=== PATIENT | female | born 1955 | race Caucasian/White ===

== ENCOUNTER 2016-10-29 07:52 | Inpatient (IN) | payer MEDICARE, OTHER ==
[2016-10-29 08:32] LABS: HEMATOCRIT 32.2 % (36.0-47.0); HEMOGLOBIN 10.4 g/dL (12.0-15.5); MEAN CORPUSCULAR HEMOGLOBIN 29.2 pg (27.0-33.4); MEAN CORPUSCULAR HGB CONC 32.1 g/dL (32.0-36.0); MEAN CORPUSCULAR VOLUME 91 fl (80-97); RED BLOOD COUNT 3.54 10^6/uL (3.72-5.28); RED CELL DISTRIBUTION WIDTH 14.7 % (11.5-14.0); WHITE BLOOD COUNT 15.9 10^3/uL (4.0-10.5)
[2016-10-29] MEDS ORDERED: LEVOFLOXACIN 500 MG/D5W RTU 100 ML IV ONE (08:35)
[2016-10-29 08:38] LABS: VENOUS BLOOD BASE EXCESS 5.6 mmol/L; VENOUS BLOOD HCO3 33.8 mmol/L (20-32); VENOUS BLOOD PH 7.3 (7.30-7.42)
[2016-10-29 08:55] LABS: BASOPHILS % (MANUAL) 0 % (0-2); EOSINOPHILS % (MANUAL) 1 % (0-6); LYMPHOCYTES % (MANUAL) 8 % (13-45); TOTAL CELLS COUNTED 100
[2016-10-29 08:56] LABS: RBC MORPHOLOGY COMMENT NORMO-CYTIC/CHROMIC
[2016-10-29 08:57] LABS: ALANINE AMINOTRANSFERASE 31 U/L (9-52); ALBUMIN 3.6 g/dL (3.5-5.0); ALKALINE PHOSPHATASE 69 U/L (38-126); ANION GAP 8 (5-19); ASPARTATE AMINO TRANSFERASE 56 U/L (14-36); BILIRUBIN,DIRECT 0.3 mg/dL (0.0-0.4); BILIRUBIN,TOTAL 0.5 mg/dL (0.2-1.3); BLOOD UREA NITROGEN 11 mg/dL (7-20); CALCIUM 9.3 mg/dL (8.4-10.2); CARBON DIOXIDE 32 mmol/L (22-30); CHLORIDE 100 mmol/L (98-107); CREATININE RESULT 0.67 mg/dL (0.52-1.25); GLUCOSE 107 mg/dL (75-110); POTASSIUM 4.3 mmol/L (3.6-5.0); SODIUM 139.9 mmol/L (137-145); TOTAL PROTEIN 6.2 g/dL (6.3-8.2)
--- NOTE | 2016-10-29 09:13 | RADIOLOGY REPORT (SQ) ---
EXAM DESCRIPTION: CHEST SINGLE VIEW/ portable COMPLETED DATE/TIME: 10/29/2016 9:00 am REASON FOR STUDY: SOB on Bipap COMPARISON: None. NUMBER OF VIEWS: One view. TECHNIQUE: Single frontal radiographic view of the chest acquired. LIMITATIONS: None. FINDINGS: LUNGS AND PLEURA: Decreased volume of the right lung with patchy change at the right lung base. Left lung over expanded but clear. MEDIASTINUM AND HILAR STRUCTURES: Some shift to the right. No obvious widening. HEART AND VASCULAR STRUCTURES: Heart normal in size. Normal vasculature. BONES: Scoliosis thoracic spine. HARDWARE: Port on the left. OTHER: No other significant finding. IMPRESSION: Some loss of volume of the right lung, with midline shift, and patchy change right lung base. TECHNICAL DOCUMENTATION: JOB ID: [id number] [employer]- All Rights Reserved
[2016-10-29] MEDS ORDERED: CEFEPIME 1 GM/D5W RTU 50 ML IV ONE (10:38)
[2016-10-29] MEDS ORDERED: METHYLPREDNISOLONE INJ 125 MG/2 ML SDV IV ONE (10:44)
[2016-10-29] MEDS ORDERED: IPRATROPIUM/ALBUTEROL 0.5-2.5 MG/3 ML AMPUL NEB ONE (10:44)
--- NOTE | 2016-10-29 10:44 | ER Document Report ---
ED General - General Chief Complaint: Respiratory Distress Stated Complaint: DIFFICULTY BREATHING Time Seen by Provider: 10/29/16 08:32 - HPI Patient complains to provider of: Shortness of breath productive cough Notes: Patient is coming in with history of acute on chronic respiratory failure patient wears BiPAP at home. Patient was found to be hypoxic on her home settings of BiPAP and had to be increased to 20/5 her oxygenation to see her in the ER. Patient states productive cough no pain no nausea vomiting no other new symptoms. No recent antibiotics no recent travel. Patient states recent hospitalizations back in July. - Related Data Allergies/Adverse Reactions: No Known Allergies Allergy (Unverified 10/29/16 08:28) Past Medical History - Social History Smoking Status: Unknown if Ever Smoked Chew tobacco use (# tins/day): No Frequency of alcohol use: None Drug Abuse: None Family History: Reviewed & Not Pertinent - Past Medical History Cardiac Medical History: Reports: Hx Congestive Heart Failure, Hx Hypercholesterolemia Pulmonary Medical History: Reports: Hx COPD GI Medical History: Reports: Hx Hiatal Hernia Psychiatric Medical History: Reports: Hx Depression Review of Systems - Review of Systems Constitutional: No symptoms reported EENT: No symptoms reported Cardiovascular: Dyspnea Respiratory: Short of breath Gastrointestinal: No symptoms reported Genitourinary: No symptoms reported Female Genitourinary: No symptoms reported Musculoskeletal: No symptoms reported Skin: No symptoms reported Hematologic/Lymphatic: No symptoms reported Neurological/Psychological: No symptoms reported -: Yes All other systems reviewed and negative Physical Exam - Vital signs Vitals: Temp Pulse Resp BP Pulse Ox 97.9 F 88 38 H 160/55 H 100 10/29/16 08:03 10/29/16 08:03 10/29/16 08:03 10/29/16 08:03 10/29/16 08:03 Interpretation: Tachypneic - General General appearance: Appears well, Alert - HEENT Head: Normocephalic, Atraumatic Eyes: Normal Pupils: PERRL - Respiratory Respiratory status: Respiratory distress - Requiring BiPAP Chest status: Nontender Breath sounds: Decreased air movement, Wheezing Chest palpation: Normal - Cardiovascular Rhythm: Regular Heart sounds: Normal auscultation Murmur: No - Abdominal Inspection: Normal Distension: No distension Bowel sounds: Normal Tenderness: Nontender Organomegaly: No organomegaly - Back Back: Normal, Nontender - Extremities General upper extremity: Normal inspection, Nontender, Normal color, Normal ROM , Normal temperature General lower extremity: Normal inspection, Nontender, Normal color, Normal ROM , Normal temperature, Normal weight bearing. No: Natasha's sign - Neurological Neuro grossly intact: Yes Cognition: Normal Orientation: AAOx4 [place] Coma Scale Eye Opening: Spontaneous [place] Coma Scale Verbal: Oriented [place] Coma Scale Motor: Obeys Commands G[place]var[place] Coma Scale Total: 15 Speech: Normal Motor strength normal: LUE, RUE, LLE, RLE Sensory: Normal - Psychological Associated symptoms: Normal affect, Normal mood - Skin Skin Temperature: Warm Skin Moisture: Dry Skin Color: Normal Course - Re-evaluation Re-evalutation: 10/29/16 14:14 Patient examination is consistent with COPD exacerbation with acute on chronic respiratory failure with hypercapnia and possible developing pneumonia. Patient remained stable on BiPAP. Cefepime and Levaquin were given. Patient's case was discussed with PCP agrees to admit to IMCU. Patient otherwise remained stable - Vital Signs Vital signs: Temp Pulse Resp BP Pulse Ox 97.9 F 88 16 146/52 H 98 10/29/16 08:03 10/29/16 08:03 10/29/16 13:01 10/29/16 13:01 10/29/16 13:01 - Laboratory Result Diagrams: 10/29/16 08:05 10/29/16 08:05 Laboratory results interpreted by me: 10/29/16 10/29/16 10/29/16 08:05 08:05 08:05 WBC 15.9 H RBC 3.54 L Hgb 10.4 L Hct 32.2 L RDW 14.7 H Seg Neuts % (Manual) 84 H Lymphocytes % (Manual) 8 L Abs Neuts (Manual) 13.4 H VBG pCO2 70.0 H* VBG HCO3 33.8 H Carbon Dioxide 32 H Lactic Acid AST 56 H Total Protein 6.2 L 10/29/16 08:05 WBC RBC Hgb Hct RDW Seg Neuts % (Manual) Lymphocytes % (Manual) Abs Neuts (Manual) VBG pCO2 VBG HCO3 Carbon Dioxide Lactic Acid 0.6 L AST Total Protein Critical Care Note - Critical Care Note Total time excluding time spent on procedures (mins): 35 Comments: multiple evaluation patient on BiPAP. Discharge - Discharge Clinical Impression: Acute and chronic respiratory failure with hypercapnia, Hypoxia Pneumonia Qualifiers: Pneumonia type: due to unspecified organism Laterality: unspecified laterality Lung location: unspecified part of lung Qualified Code(s): J18.9 - Pneumonia, unspecified organism COPD (chronic obstructive pulmonary disease) Qualifiers: COPD type: unspecified COPD Qualified Code(s): J44.9 - Chronic obstructive pulmonary disease, unspecified Disposition: ADMITTED INPATIENT Admitting Provider: Pavel Unit Admitted: [facility]
[2016-10-29 13:10] LABS: APPEARANCE,URINE CLEAR; BILIRUBIN,URINE NEGATIVE (NEGATIVE); GLUCOSE, URINE NEGATIVE (NEGATIVE); KETONES,URINE 20 mg/dL (NEGATIVE); LEUKOCYTE ESTERASE,URINE NEGATIVE (NEGATIVE); NITRITE,URINE NEGATIVE (NEGATIVE); PROTEIN,URINE NEGATIVE (NEGATIVE); URINE SPECIFIC GRAVITY 1.011; UROBILINOGEN,URINE NEGATIVE mg/dL (<2.0)
--- NOTE | 2016-10-29 14:27 | EKG REPORT ---
SEVERITY:- ABNORMAL ECG - SINUS RHYTHM LOW VOLTAGE WITH RIGHT AXIS DEVIATION BORDERLINE R WAVE PROGRESSION, ANTERIOR LEADS BORDERLINE T ABNORMALITIES, ANT-LAT LEADS : Confirmed by: Effie Thomas 29-Oct-2016 14:27:27
[2016-10-29 18:08] LABS: ARTERIAL BLOOD BASE EXCESS 6.6 mmol/L; ARTERIAL BLOOD O2 SATURATION 96.2 % (94-98)
[2016-10-29] MEDS ORDERED: LEVOFLOXACIN 750 MG/D5W RTU 750 MG/150 ML RTUPB IV ONE (19:30)
[2016-10-29 19:45] LABS: PROTHROMBIN TIME 13.5 SEC (11.4-15.4)
[2016-10-29 19:46] LABS: PARTIAL THROMBOPLASTIN TIME 26.9 SEC (23.5-35.8)
[2016-10-29] MEDS: IPRATROPIUM/ALBUTEROL 0.5-2.5 MG/3 ML AMPUL NEB SCH ×3 (19:49→23:43)
[2016-10-29 19:53] LABS: LIPASE 75.8 U/L (23-300); MAGNESIUM 1.8 mg/dL (1.6-2.3); PHOSPHORUS 2.4 mg/dL (2.5-4.5)
[2016-10-29 20:07] LABS: CREATINE KINASE MB 9.73 ng/mL (<4.55)
[2016-10-29 20:10] LABS: TROPONIN I < 0.012 ng/mL
[2016-10-29 20:25] LABS: THYROID STIMULATING HORMONE 0.3 uIU/mL (0.47-4.68)
[2016-10-29 20:27] LABS: APPEARANCE,URINE CLEAR; BILIRUBIN,URINE NEGATIVE (NEGATIVE); GLUCOSE, URINE NEGATIVE (NEGATIVE); KETONES,URINE 80 mg/dL (NEGATIVE); LEUKOCYTE ESTERASE,URINE NEGATIVE (NEGATIVE); NITRITE,URINE NEGATIVE (NEGATIVE); PROTEIN,URINE NEGATIVE (NEGATIVE); URINE SPECIFIC GRAVITY 1.016; UROBILINOGEN,URINE NEGATIVE mg/dL (<2.0)
[2016-10-29] MEDS ORDERED: ASPIRIN 81 MG TABLET, ENT COATED PO ONE (20:30)
[2016-10-29] MEDS ORDERED: ROFLUMILAST 500 MCG TABLET PO ONE (20:30)
[2016-10-29 20:36] LABS: URINE BARBITURATES SCREEN NEGATIVE; URINE METHADONE SCREEN NEGATIVE; URINE PHENCYCLIDINE SCREEN NEGATIVE
[2016-10-29 20:41] LABS: URINE OPIATES LOW UNCONFIRMED POSITIVE
[2016-10-29] MEDS: CEFEPIME HCL 2 GM in DEXTROSE 5%-WATER 50 ML IV SCH (21:49)
[2016-10-29] MEDS ORDERED: CEFEPIME 2 GM/D5W RTU 2 GM/50 ML RTUPB IV SCH (22:00)
[2016-10-30] MEDS: IPRATROPIUM/ALBUTEROL 0.5-2.5 MG/3 ML AMPUL NEB SCH ×9 (01:36→18:02)
[2016-10-30 01:40] LABS: CREATINE KINASE MB 5.86 ng/mL (<4.55)
[2016-10-30 01:43] LABS: TROPONIN I < 0.012 ng/mL
[2016-10-30 07:16] LABS: HEMATOCRIT 29.9 % (36.0-47.0); HEMOGLOBIN 9.5 g/dL (12.0-15.5); HGB HCT DIFFERENCE -1.4; MEAN CORPUSCULAR HEMOGLOBIN 28.6 pg (27.0-33.4); MEAN CORPUSCULAR HGB CONC 31.9 g/dL (32.0-36.0); MEAN CORPUSCULAR VOLUME 90 fl (80-97); RED BLOOD COUNT 3.34 10^6/uL (3.72-5.28); RED CELL DISTRIBUTION WIDTH 14.8 % (11.5-14.0); WHITE BLOOD COUNT 24.2 10^3/uL (4.0-10.5)
[2016-10-30 07:45] LABS: CREATINE KINASE MB 3.83 ng/mL (<4.55)
[2016-10-30 07:51] LABS: TROPONIN I < 0.012 ng/mL
[2016-10-30 07:53] LABS: BASOPHILS % (MANUAL) 0 % (0-2); EOSINOPHILS % (MANUAL) 0 % (0-6); LYMPHOCYTES % (MANUAL) 2 % (13-45); TOTAL CELLS COUNTED 100
[2016-10-30 07:56] LABS: ANISOCYTOSIS SLIGHT; HYPOCHROMASIA SLIGHT; TOXIC GRANULATION SLIGHT
[2016-10-30 08:00] LABS: ALANINE AMINOTRANSFERASE 30 U/L (9-52); ALBUMIN 3.7 g/dL (3.5-5.0); ALKALINE PHOSPHATASE 70 U/L (38-126); ANION GAP 12 (5-19); ASPARTATE AMINO TRANSFERASE 52 U/L (14-36); BILIRUBIN,DIRECT 0.4 mg/dL (0.0-0.4); BILIRUBIN,TOTAL 0.5 mg/dL (0.2-1.3); BLOOD UREA NITROGEN 15 mg/dL (7-20); CALCIUM 9.8 mg/dL (8.4-10.2); CARBON DIOXIDE 30 mmol/L (22-30); CHLORIDE 99 mmol/L (98-107); Direct HDL 57 mg/dL (>40); GLUCOSE 109 mg/dL (75-110); POTASSIUM 3.6 mmol/L (3.6-5.0); SODIUM 140.9 mmol/L (137-145); TOTAL PROTEIN 6.7 g/dL (6.3-8.2); TRIGLYCERIDES 60 mg/dL (<150)
[2016-10-30 08:15] LABS: DIRECT LDL 78 mg/dL (<100)
[2016-10-30] MEDS: ENOXAPARIN SODIUM INJ 40 MG/0.4 ML DISP.SYRIN SUBCUT SCH (08:35)
[2016-10-30] MEDS: ASPIRIN 81 MG TABLET, ENT COATED PO SCH (09:51)
[2016-10-30] MEDS: LEVOFLOXACIN 750 MG/D5W RTU 750 MG/150 ML RTUPB IV SCH (09:51)
[2016-10-30] MEDS: ROFLUMILAST 500 MCG TABLET PO SCH (09:51)
[2016-10-30] MEDS: CEFEPIME HCL 2 GM in DEXTROSE 5%-WATER 50 ML IV SCH ×2 (11:52→21:41)
--- NOTE | 2016-10-30 19:52 | PDOC H&P ---
History of Present Illness Admission Date/PCP: 10/29/16 18:48 BOONE GOODWIN MD History of Present Illness: DENNIS DEGROOT is a 61 year old female, with chronic respiratory failure on positive pressure ventilation, BiPAP at home she came to the emergency room because of shortness of breath associated with hypoxemia. She was seen and evaluated in the emergency room, chest x-ray was done, it suggested right lower lobe pneumonia associated with leukocytosis with a left shift. Patient have a history of severe chronic obstructive lung disease, a very long history of tobacco abuse now she smokes electronic cigarettes, history of lung cancer, history of poor health, chronic pain syndrome on multiple opioid therapy. When I saw patient on the floor she was lethargic hardly able to answer questions. 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 Past Medical History Cardiac Medical History: Reports: Hyperlipidema Pulmonary Medical History: Reports: Chronic Obstructive Pulmonary Disease (COPD) Neurological Medical History: Reports: Ischemic CVA Malignancy Medical History: Reports: Lung Cancer GI Medical History: Reports: Hiatal Hernia Psychiatric Medical History: Reports: Depression Past Surgical History Past Surgical History: Reports: Cardiac Catheterization, Other - lobectomy Social History Smoking Status: Current Every Day Smoker Number of Years Smokin Last Time Smoked: 10/28/16 Frequency of Alcohol Use: None Hx Recreational Drug Use: No Drugs: None Hx Prescription Drug Abuse: No Family History Family History: Reviewed & Not Pertinent Parental Family History Reviewed: Yes Children Family History Reviewed: Yes Sibling(s) Family History Reviewed.: Yes Medication/Allergy Home Medications: Albuterol Sulfate [Proair HFA] 1 puff IH DAILY 10/29/16 Alendronate Sodium [Fosamax 70 mg Tablet] 70 mg PO SCHMIDT@1000 10/29/16 Aspirin [Adult Low Dose Aspirin EC] 81 mg PO DAILY 10/29/16 Atorvastatin Calcium [Lipitor 40 mg Tablet] 40 mg PO QPM 10/29/16 Azithromycin [Zithromax 250 mg Tablet] 250 mg PO BID 10/29/16 Bupropion HCl [Wellbutrin Xl 150 mg 24hr Tablet] 150 mg PO QPM 10/29/16 Clopidogrel Bisulfate [Plavix 75 mg Tablet] 75 mg PO QPM 10/29/16 Fluticasone/Salmeterol [Advair 250-50 Diskus 14 Dose/Diskus] 2 puff IH DAILY 10/10 Iron Polysaccharide Complex [Ferrex 150] 150 mg PO DAILY 10/29/16 Lorazepam [Ativan 0.5 mg Tablet] 0.5 mg PO TID 10/29/16 Multivits-Min/Iron/FA/Lutein [Centrum Silver Women Tablet] 1 tab PO DAILY Oxycodone HCl [Oxycodone HCl ER] 40 mg PO Q8 10/29/16 Oxycodone HCl/Acetaminophen [Oxycodone-Acetaminophen 10-325] 1 tab PO Q6HP PRN 10/29/16 Prochlorperazine Maleate [Compazine 10 mg Tablet] 10 mg PO TID 10/29/16 Quetiapine Fumarate [Seroquel Xr] 200 mg PO QPM 10/29/16 Roflumilast [Daliresp 500 mcg Tablet] 500 mcg PO DAILY 10/29/16 Tiotropium [place] [Spiriva Handihaler 18 mcg/dose (30 Dose)] 18 mcg IH DAILY Ubidecarenone [Co Q-10] 200 mg PO DAILY 10/29/16 Valsartan [Diovan 80 mg Tablet] 80 mg PO DAILY 10/29/16 Zolpidem Tartrate [Edluar SL 10 mg Tablet] 10 mg SL QHS 10/29/16 Allergies/Adverse Reactions: No Known Allergies Allergy (Unverified 10/29/16 08:28) Review of Systems Constitutional: PRESENT: fever(s) Cardiovascular: PRESENT: dyspnea on exertion Respiratory: PRESENT: cough, dyspnea Gastrointestinal: ABSENT: as per HPI, abdominal pain, bloating, coffee ground emesis, constipation, diarrhea, dysphagia, heartburn, hematemesis, hematochezia , melena, nausea, vomiting, other Genitourinary: ABSENT: dysuria, hematuria Musculoskeletal: ABSENT: joint swelling Integumentary: ABSENT: rash, wounds Neurological: ABSENT: abnormal gait, abnormal speech, confusion, dizziness, focal weakness, syncope Psychiatric: ABSENT: anxiety, depression, homidical ideation, suicidal ideation Endocrine: ABSENT: cold intolerance, heat intolerance, menstrual abnormalities, polydipsia, polyuria Hematologic/Lymphatic: ABSENT: easy bleeding, easy bruising, lymphadenopathy Physical Exam Vital Signs: Temp Pulse Resp BP Pulse Ox 99.7 F 130 H 30 H 133/70 H 100 10/30/16 16:40 10/30/16 18:02 10/30/16 18:02 10/30/16 16:40 10/30/16 16:40 Intake & Output 10/29/16 10/30/16 10/31/16 06:59 06:59 06:59 Intake Total 426 235 Output Total 400 400 Balance 26 -165 Weight 63.6 kg General appearance: PRESENT: severe distress Head exam: PRESENT: atraumatic Eye exam: PRESENT: PERRLA Ear exam: PRESENT: normal external ear exam Neck exam: PRESENT: full ROM Respiratory exam: PRESENT: rhonchi Cardiovascular exam: PRESENT: RRR, +S1, +S2 Vascular exam: PRESENT: normal capillary refill GI/Abdominal exam: PRESENT: normal bowel sounds, soft Rectal exam: PRESENT: deferred Neurological exam: PRESENT: alert, CN II-XII grossly intact Psychiatric exam: PRESENT: appropriate affect, normal mood. ABSENT: homicidal ideation, suicidal ideation Skin exam: PRESENT: dry, intact, warm Results Laboratory Results: 10/30/16 07:00 10/30/16 07:00 10/29/16 10/29/16 10/29/16 19:25 19:25 19:25 WBC RBC Hgb Hct MCV MCH MCHC RDW Plt Count Seg Neutrophils % Lymphocytes % Monocytes % Eosinophils % Basophils % Absolute Neutrophils Absolute Lymphocytes Absolute Monocytes Absolute Eosinophils Absolute Basophils Sodium Potassium Chloride Carbon Dioxide Anion Gap BUN Creatinine Est GFR ( Amer) Est GFR (Non-Af Amer) Glucose Calcium Phosphorus 2.4 L Magnesium 1.8 Total Bilirubin AST ALT Alkaline Phosphatase Ammonia 11.0 Total Protein Albumin Triglycerides Cholesterol LDL Cholesterol Direct VLDL Cholesterol HDL Cholesterol Amylase 47 Lipase 75.8 TSH 0.30 L Free T4 1.25 Urine Color Urine Appearance Urine pH Ur Specific [place] Urine Protein Urine Glucose (UA) Urine Ketones Urine Blood Urine Nitrite Ur Leukocyte Esterase Urine WBC (Auto) Urine RBC (Auto) 10/29/16 10/30/16 10/30/16 20:10 07:00 07:00 WBC 24.2 H RBC 3.34 L Hgb 9.5 L Hct 29.9 L MCV 90 MCH 28.6 MCHC 31.9 L RDW 14.8 H Plt Count 269 Seg Neutrophils % Not Reportable Lymphocytes % Not Reportable Monocytes % Not Reportable Eosinophils % Not Reportable Basophils % Not Reportable Absolute Neutrophils Not Reportable Absolute Lymphocytes Not Reportable Absolute Monocytes Not Reportable Absolute Eosinophils Not Reportable Absolute Basophils Not Reportable Sodium 140.9 Potassium 3.6 Chloride 99 Carbon Dioxide 30 Anion Gap 12 BUN 15 Creatinine 0.70 Est GFR ( Amer) > 60 Est GFR (Non-Af Amer) > 60 Glucose 109 Calcium 9.8 Phosphorus Magnesium Total Bilirubin 0.5 AST 52 H ALT 30 Alkaline Phosphatase 70 Ammonia Total Protein 6.7 Albumin 3.7 Triglycerides 60 Cholesterol 166.40 LDL Cholesterol Direct 78 VLDL Cholesterol 12.0 HDL Cholesterol 57 Amylase Lipase TSH Free T4 Urine Color YELLOW Urine Appearance CLEAR Urine pH 5.0 Ur Specific [place] 1.016 Urine Protein NEGATIVE Urine Glucose (UA) NEGATIVE Urine Ketones 80 H Urine Blood NEGATIVE Urine Nitrite NEGATIVE Ur Leukocyte Esterase NEGATIVE Urine WBC (Auto) 1 Urine RBC (Auto) 4 10/29/16 10/30/16 10/30/16 19:25 01:04 07:00 CK-MB (CK-2) 9.73 H 5.86 H 3.83 Troponin I < 0.012 < 0.012 < 0.012 Impressions: Chest X-Ray 10/29/16 08:12 IMPRESSION: Some loss of volume of the right lung, with midline shift, and patchy change right lung base. Assessment & Plan - Diagnosis (1) Acute hypoxemic respiratory failure Is this a current diagnosis for this admission?: Yes (2) Pneumonia Qualifiers: Pneumonia type: due to unspecified organism Laterality: right Lung location: lower lobe of lung Qualified Code(s): J18.1 - Lobar pneumonia, unspecified organism Is this a current diagnosis for this admission?: Yes (3) COPD (chronic obstructive pulmonary disease) Is this a current diagnosis for this admission?: Yes (4) Acute and chronic respiratory failure with hypercapnia Is this a current diagnosis for this admission?: Yes (5) COPD (chronic obstructive pulmonary disease) Qualifiers: COPD type: unspecified COPD Qualified Code(s): J44.9 - Chronic obstructive pulmonary disease, unspecified Is this a current diagnosis for this admission?: Yes (7) Pneumonia Qualifiers: Pneumonia type: due to unspecified organism Laterality: unspecified laterality Lung location: unspecified part of lung Qualified Code(s): J18.9 - Pneumonia, unspecified organism Is this a current diagnosis for this admission?: Yes - Plan Summary Plan Summary: Continue the positive pressure ventilation , BiPAP bronchodilators with DuoNeb every 2 hours, IV antibiotic, cefepime and Levaquin
[2016-10-30] MEDS ORDERED: IPRATROPIUM/ALBUTEROL 0.5-2.5 MG/3 ML AMPUL NEB PRN (19:56)
--- NOTE | 2016-10-30 19:59 | PDOC PROGRESS REPORT ---
Subjective Progress Note for:: 10/30/16 Subjective:: Patient was seen by the bedside, she is more awake and alert,Compared to yesterday Physical Exam Vital Signs: Temp Pulse Resp BP Pulse Ox 99.7 F 123 H 30 H 133/70 H 100 10/30/16 16:40 10/30/16 18:55 10/30/16 18:02 10/30/16 16:40 10/30/16 16:40 Intake & Output 10/29/16 10/30/16 10/31/16 06:59 06:59 06:59 Intake Total 426 235 Output Total 400 400 Balance 26 -165 Weight 63.6 kg General appearance: PRESENT: no acute distress Eye exam: PRESENT: PERRLA Respiratory exam: PRESENT: clear to auscultation melanie Cardiovascular exam: PRESENT: +S1, +S2 GI/Abdominal exam: PRESENT: soft Neurological exam: PRESENT: alert Results Laboratory Results: 10/30/16 07:00 10/30/16 07:00 10/29/16 10/29/16 10/30/16 19:25 20:10 07:00 WBC 24.2 H RBC 3.34 L Hgb 9.5 L Hct 29.9 L MCV 90 MCH 28.6 MCHC 31.9 L RDW 14.8 H Plt Count 269 Seg Neutrophils % Not Reportable Lymphocytes % Not Reportable Monocytes % Not Reportable Eosinophils % Not Reportable Basophils % Not Reportable Absolute Neutrophils Not Reportable Absolute Lymphocytes Not Reportable Absolute Monocytes Not Reportable Absolute Eosinophils Not Reportable Absolute Basophils Not Reportable Sodium Potassium Chloride Carbon Dioxide Anion Gap BUN Creatinine Est GFR ( Amer) Est GFR (Non-Af Amer) Glucose Calcium Total Bilirubin AST ALT Alkaline Phosphatase Total Protein Albumin Triglycerides Cholesterol LDL Cholesterol Direct VLDL Cholesterol HDL Cholesterol TSH 0.30 L Free T4 1.25 Urine Color YELLOW Urine Appearance CLEAR Urine pH 5.0 Ur Specific [place] 1.016 Urine Protein NEGATIVE Urine Glucose (UA) NEGATIVE Urine Ketones 80 H Urine Blood NEGATIVE Urine Nitrite NEGATIVE Ur Leukocyte Esterase NEGATIVE Urine WBC (Auto) 1 Urine RBC (Auto) 4 10/30/16 07:00 WBC RBC Hgb Hct MCV MCH MCHC RDW Plt Count Seg Neutrophils % Lymphocytes % Monocytes % Eosinophils % Basophils % Absolute Neutrophils Absolute Lymphocytes Absolute Monocytes Absolute Eosinophils Absolute Basophils Sodium 140.9 Potassium 3.6 Chloride 99 Carbon Dioxide 30 Anion Gap 12 BUN 15 Creatinine 0.70 Est GFR ( Amer) > 60 Est GFR (Non-Af Amer) > 60 Glucose 109 Calcium 9.8 Total Bilirubin 0.5 AST 52 H ALT 30 Alkaline Phosphatase 70 Total Protein 6.7 Albumin 3.7 Triglycerides 60 Cholesterol 166.40 LDL Cholesterol Direct 78 VLDL Cholesterol 12.0 HDL Cholesterol 57 TSH Free T4 Urine Color Urine Appearance Urine pH Ur Specific [place] Urine Protein Urine Glucose (UA) Urine Ketones Urine Blood Urine Nitrite Ur Leukocyte Esterase Urine WBC (Auto) Urine RBC (Auto) 10/29/16 10/30/16 10/30/16 19:25 01:04 07:00 CK-MB (CK-2) 9.73 H 5.86 H 3.83 Troponin I < 0.012 < 0.012 < 0.012 Impressions: Chest X-Ray 10/29/16 08:12 IMPRESSION: Some loss of volume of the right lung, with midline shift, and patchy change right lung base. Assessment & Plan - Diagnosis (1) Acute hypoxemic respiratory failure Is this a current diagnosis for this admission?: Yes (2) Pneumonia Qualifiers: Pneumonia type: due to unspecified organism Laterality: right Lung location: lower lobe of lung Qualified Code(s): J18.1 - Lobar pneumonia, unspecified organism Is this a current diagnosis for this admission?: Yes (3) COPD (chronic obstructive pulmonary disease) Is this a current diagnosis for this admission?: Yes (4) Acute and chronic respiratory failure with hypercapnia Is this a current diagnosis for this admission?: Yes (5) COPD (chronic obstructive pulmonary disease) Qualifiers: COPD type: unspecified COPD Qualified Code(s): J44.9 - Chronic obstructive pulmonary disease, unspecified Is this a current diagnosis for this admission?: Yes (7) Pneumonia Qualifiers: Pneumonia type: due to unspecified organism Laterality: unspecified laterality Lung location: unspecified part of lung Qualified Code(s): J18.9 - Pneumonia, unspecified organism Is this a current diagnosis for this admission?: Yes - Plan Summary Plan Summary: She will continue treatment with IV antibiotic, BiPAP, bronchodilators
[2016-10-31 05:23] LABS: ALANINE AMINOTRANSFERASE 28 U/L (9-52); ALBUMIN 3.9 g/dL (3.5-5.0); ALKALINE PHOSPHATASE 74 U/L (38-126); ANION GAP 13 (5-19); ASPARTATE AMINO TRANSFERASE 37 U/L (14-36); BILIRUBIN,DIRECT 0.4 mg/dL (0.0-0.4); BILIRUBIN,TOTAL 0.6 mg/dL (0.2-1.3); BLOOD UREA NITROGEN 14 mg/dL (7-20); CALCIUM 9.8 mg/dL (8.4-10.2); CARBON DIOXIDE 31 mmol/L (22-30); CHLORIDE 100 mmol/L (98-107); CREATININE RESULT 0.71 mg/dL (0.52-1.25); GLUCOSE 110 mg/dL (75-110); POTASSIUM 3.1 mmol/L (3.6-5.0); SODIUM 144.2 mmol/L (137-145); TOTAL PROTEIN 7.2 g/dL (6.3-8.2)
[2016-10-31 05:51] LABS: HEMATOCRIT 32.6 % (36.0-47.0); HEMOGLOBIN 10.6 g/dL (12.0-15.5); HGB HCT DIFFERENCE -0.8; MEAN CORPUSCULAR HEMOGLOBIN 29.2 pg (27.0-33.4); MEAN CORPUSCULAR HGB CONC 32.4 g/dL (32.0-36.0); MEAN CORPUSCULAR VOLUME 90 fl (80-97); RED BLOOD COUNT 3.61 10^6/uL (3.72-5.28); RED CELL DISTRIBUTION WIDTH 15.3 % (11.5-14.0); WHITE BLOOD COUNT 24.7 10^3/uL (4.0-10.5)
[2016-10-31 05:55] LABS: BAND NEUTROPHILS % (MANUAL) 1 % (3-5); BASOPHILS % (MANUAL) 0 % (0-2); EOSINOPHILS % (MANUAL) 0 % (0-6); LYMPHOCYTES % (MANUAL) 3 % (13-45); TOTAL CELLS COUNTED 100
[2016-10-31 05:56] LABS: ANISOCYTOSIS SLIGHT; OVALOCYTES SLIGHT; POIKILOCYTOSIS SLIGHT; ROULEAUX SLIGHT; TEAR DROP CELLS SLIGHT; TOXIC GRANULATION SLIGHT
[2016-10-31] MEDS ORDERED: (PENDING PHARMACY ID) (Oxycodone Hcl/Acetaminophen [Oxycodone-Acetaminophen 10-325] 1 TAB) PO PRN (08:30)
[2016-10-31] MEDS ORDERED: SUCCINYLCHOLINE CHLORIDE INJ 200 MG/10 ML VIAL ONE (08:33)
[2016-10-31] MEDS: CEFEPIME HCL 2 GM in DEXTROSE 5%-WATER 50 ML IV SCH ×2 (09:27→21:49)
[2016-10-31] MEDS: ENOXAPARIN SODIUM INJ 40 MG/0.4 ML DISP.SYRIN SUBCUT SCH ×2 (09:27→21:48)
[2016-10-31] MEDS: ASPIRIN 81 MG TABLET, ENT COATED PO SCH (09:28)
[2016-10-31] MEDS: ROFLUMILAST 500 MCG TABLET PO SCH (09:29)
[2016-10-31 09:33] LABS: ARTERIAL BLOOD BASE EXCESS 5.6 mmol/L; ARTERIAL BLOOD O2 SATURATION 89.5 % (94-98)
[2016-10-31] MEDS ORDERED: VALSARTAN 80 MG TABLET PO SCH (10:00)
[2016-10-31] MEDS ORDERED: FLUTICASONE/SALMETEROL DISKUS 250-50 MCG/DOSE IH SCH ×2 (10:00)
[2016-10-31] MEDS ORDERED: OXYCODONE-ACETAMINOPHEN 5-325 MG TABLET PO PRN (10:19)
[2016-10-31] MEDS ORDERED: OXYCODONE HCL IR 5 MG TABLET PO PRN (10:21)
[2016-10-31] MEDS: LEVOFLOXACIN 750 MG/D5W RTU 750 MG/150 ML RTUPB IV SCH (10:27)
[2016-10-31] MEDS ORDERED: PHARMACY COMMUNICATION ORDER MC NR (11:00)
[2016-10-31] MEDS ORDERED: PROPOFOL 100 ML IV ONE (11:39)
[2016-10-31] MEDS ORDERED: PROPOFOL INJ 200 MG/20 ML VIAL IV ONE (11:46)
[2016-10-31] MEDS ORDERED: MAGNESIUM SULFATE 1 GM in D5W 100 ML IV ONE (12:00)
[2016-10-31] MEDS ORDERED: POTASSIUM CHLORIDE 10 MEQ TABLET.SA PO SCH (12:00)
[2016-10-31] MEDS ORDERED: MAGNESIUM SULFATE/D5W 1 GM/100 ML RTUPB IV ONE (12:15)
--- NOTE | 2016-10-31 12:22 | RADIOLOGY REPORT (SQ) ---
EXAM DESCRIPTION: CHEST SINGLE VIEW COMPLETED DATE/TIME: 10/31/2016 12:08 pm REASON FOR STUDY: post intubation COMPARISON: 10/29/2016 EXAM PARAMETERS: NUMBER OF VIEWS: One view. TECHNIQUE: Single frontal radiographic view of the chest acquired. RADIATION DOSE: NA LIMITATIONS: None. FINDINGS: LUNGS AND PLEURA: Endotracheal tube and NG tube have been added. [id number] remains in place. The NG tube and endotracheal tube are in satisfactory position. Endotracheal tube lies appr oximately 4.8 cm above the barber. There is persistent right lower lobe infiltrate. MEDIASTINUM AND HILAR STRUCTURES: No masses. Contour normal. HEART AND VASCULAR STRUCTURES: Heart normal in size. Normal vasculature. BONES: No acute findings. HARDWARE: None in the chest. OTHER: No other significant finding. IMPRESSION: Endotracheal tube NG tube are in satisfactory position. Persistent right lower lobe inf iltrate. TECHNICAL DOCUMENTATION: JOB ID: [id number]
[2016-10-31] MEDS: POTASSIUM CHLORIDE 20 MEQ/50 ML RTU IV SCH ×4 (12:30→21:48)
[2016-10-31 12:48] LABS: ARTERIAL BLOOD BASE EXCESS 3.8 mmol/L; ARTERIAL BLOOD O2 SATURATION 97.5 % (94-98)
[2016-10-31] MEDS: OXYCODONE HCL IR 5 MG TABLET NG PRN (13:03)
[2016-10-31] MEDS: LORAZEPAM 0.5 MG TABLET NG SCH ×2 (13:04→21:49)
--- NOTE | 2016-10-31 13:26 | PDOC CONSULTATION ---
Consultation Consult Date: 10/31/16 History of Present Illness Admission Date/PCP: 10/29/16 18:48 BOONE GOODWIN MD History of Present Illness: DENNIS DEGROOT is a 61 year old female, with chronic respiratory failure on positive pressure ventilation, BiPAP at home she came to the emergency room because of shortness of breath associated with hypoxemia. She was seen and evaluated in the emergency room, chest x-ray was done, it suggested right lower lobe pneumonia associated with leukocytosis with a left shift. Patient have a history of severe chronic obstructive lung disease, a very long history of tobacco abuse now she smokes electronic cigarettes, history of lung cancer, history of poor health, chronic pain syndrome on multiple opioid therapy. When I saw patient on the floor she was lethargic hardly able to answer questions. 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 Past Medical History Cardiac Medical History: Reports: Congestive Heart Failure, Hyperlipidema Pulmonary Medical History: Reports: Chronic Obstructive Pulmonary Disease (COPD) Neurological Medical History: Reports: Ischemic CVA Malignancy Medical History: Reports: Lung Cancer GI Medical History: Reports: Hiatal Hernia Psychiatric Medical History: Reports: Depression Past Surgical History Past Surgical History: Reports: Cardiac Catheterization, Other - lobectomy Social History Information Source: Relative, [facility] Records Smoking Status: Current Every Day Smoker Number of Years Smokin Last Time Smoked: 10/28/16 Passive smoke exposure as: Both Frequency of Alcohol Use: None Hx Recreational Drug Use: No Drugs: None Hx Prescription Drug Abuse: No Family History Family History: Reviewed & Not Pertinent Parental Family History Reviewed: Yes Children Family History Reviewed: Yes Sibling(s) Family History Reviewed.: Yes Medication/Allergy Home Medications: Albuterol Sulfate [Proair HFA] 1 puff IH DAILY 10/29/16 Alendronate Sodium [Fosamax 70 mg Tablet] 70 mg PO SCHMIDT@1000 10/29/16 Aspirin [Adult Low Dose Aspirin EC] 81 mg PO DAILY 10/29/16 Atorvastatin Calcium [Lipitor 40 mg Tablet] 40 mg PO QPM 10/29/16 Azithromycin [Zithromax 250 mg Tablet] 250 mg PO BID 10/29/16 Bupropion HCl [Wellbutrin Xl 150 mg 24hr Tablet] 150 mg PO QPM 10/29/16 Clopidogrel Bisulfate [Plavix 75 mg Tablet] 75 mg PO QPM 10/29/16 Fluticasone/Salmeterol [Advair 250-50 Diskus 14 Dose/Diskus] 2 puff IH DAILY 10/10 Iron Polysaccharide Complex [Ferrex 150] 150 mg PO DAILY 10/29/16 Lorazepam [Ativan 0.5 mg Tablet] 0.5 mg PO TID 10/29/16 Multivits-Min/Iron/FA/Lutein [Centrum Silver Women Tablet] 1 tab PO DAILY Oxycodone HCl [Oxycodone HCl ER] 40 mg PO Q8 10/29/16 Oxycodone HCl/Acetaminophen [Oxycodone-Acetaminophen 10-325] 1 tab PO Q6HP PRN 10/29/16 Prochlorperazine Maleate [Compazine 10 mg Tablet] 10 mg PO TID 10/29/16 Quetiapine Fumarate [Seroquel Xr] 200 mg PO QPM 10/29/16 Roflumilast [Daliresp 500 mcg Tablet] 500 mcg PO DAILY 10/29/16 Tiotropium [place] [Spiriva Handihaler 18 mcg/dose (30 Dose)] 18 mcg IH DAILY Ubidecarenone [Co Q-10] 200 mg PO DAILY 10/29/16 Valsartan [Diovan 80 mg Tablet] 80 mg PO DAILY 10/29/16 Zolpidem Tartrate [Edluar SL 10 mg Tablet] 10 mg SL QHS 10/29/16 Allergies/Adverse Reactions: No Known Allergies Allergy (Unverified 10/29/16 08:28) Review of Systems ROS unobtainable: Due to endotracheal tube Physical Exam Vital Signs: Temp Pulse Resp BP Pulse Ox 100.2 F 94 19 108/72 100 10/31/16 12:00 10/31/16 12:00 10/31/16 12:04 10/31/16 12:04 10/31/16 12:04 Intake & Output 10/30/16 10/31/16 11/01/16 06:59 06:59 06:59 Intake Total 426 422 Output Total 400 700 225 Balance 26 278 -225 Weight 63.6 kg 63.5 kg General appearance: PRESENT: no acute distress, disheveled, well-developed, well -nourished Head exam: PRESENT: atraumatic, normocephalic Eye exam: PRESENT: conjunctiva pale Mouth exam: PRESENT: moist, neck supple, tongue midline, other - ET tube Neck exam: ABSENT: carotid bruit, JVD, lymphadenopathy, thyromegaly Respiratory exam: PRESENT: crackles, decreased breath sounds, prolonged expiratory phas, rhonchi, unlabored Cardiovascular exam: PRESENT: RRR, +S1, +S2 Pulses: PRESENT: normal radial pulses GI/Abdominal exam: PRESENT: normal bowel sounds, soft. ABSENT: distended, guarding, mass, organolmegaly, rebound, tenderness Rectal exam: PRESENT: deferred Gentrourinary exam: PRESENT: indwelling catheter Musculoskeletal exam: PRESENT: normal inspection Skin exam: PRESENT: dry, warm Results Laboratory Results: 10/31/16 04:23 10/31/16 04:23 10/31/16 10/31/16 10/31/16 04:23 04:23 08:10 WBC 24.7 H RBC 3.61 L Hgb 10.6 L Hct 32.6 L MCV 90 MCH 29.2 MCHC 32.4 RDW 15.3 H Plt Count 262 Seg Neutrophils % Not Reportable Lymphocytes % Not Reportable Monocytes % Not Reportable Eosinophils % Not Reportable Basophils % Not Reportable Absolute Neutrophils Not Reportable Absolute Lymphocytes Not Reportable Absolute Monocytes Not Reportable Absolute Eosinophils Not Reportable Absolute Basophils Not Reportable Carbonic Acid HCO3/H2CO3 Ratio ABG pH ABG pCO2 ABG pO2 ABG HCO3 ABG O2 Saturation ABG Base Excess FiO2 Sodium 144.2 Potassium 3.1 L Chloride 100 Carbon Dioxide 31 H Anion Gap 13 BUN 14 Creatinine 0.71 Est GFR ( Amer) > 60 Est GFR (Non-Af Amer) > 60 Glucose 110 Calcium 9.8 Total Bilirubin 0.6 AST 37 H ALT 28 Alkaline Phosphatase 74 Total Protein 7.2 Albumin 3.9 Stool Occult Blood POSITIVE 10/31/16 10/31/16 08:24 12:38 WBC RBC Hgb Hct MCV MCH MCHC RDW Plt Count Seg Neutrophils % Lymphocytes % Monocytes % Eosinophils % Basophils % Absolute Neutrophils Absolute Lymphocytes Absolute Monocytes Absolute Eosinophils Absolute Basophils Carbonic Acid 1.10 1.18 HCO3/H2CO3 Ratio 26:1 23:1 ABG pH 7.51 H 7.47 H ABG pCO2 36.6 39.1 ABG pO2 50.7 L 93.3 ABG HCO3 28.8 H 27.8 H ABG O2 Saturation 89.5 L 97.5 ABG Base Excess 5.6 3.8 FiO2 30% 35% Sodium Potassium Chloride Carbon Dioxide Anion Gap BUN Creatinine Est GFR ( Amer) Est GFR (Non-Af Amer) Glucose Calcium Total Bilirubin AST ALT Alkaline Phosphatase Total Protein Albumin Stool Occult Blood 10/29/16 20:10 Catheterized Urine Urine Culture - Final NO GROWTH 2 DAYS 10/29/16 10/30/16 10/30/16 19:25 01:04 07:00 CK-MB (CK-2) 9.73 H 5.86 H 3.83 Troponin I < 0.012 < 0.012 < 0.012 Impressions: Chest X-Ray 10/31/16 00:00 IMPRESSION: Endotracheal tube NG tube are in satisfactory position. Persistent right lower lobe infiltrate. Assessment & Plan - Diagnosis (1) Acute and chronic respiratory failure with hypercapnia Is this a current diagnosis for this admission?: Yes (2) COPD (chronic obstructive pulmonary disease) Qualifiers: COPD type: unspecified COPD Qualified Code(s): J44.9 - Chronic obstructive pulmonary disease, unspecified Is this a current diagnosis for this admission?: Yes (3) Pneumonia Qualifiers: Pneumonia type: due to unspecified organism Laterality: unspecified laterality Lung location: unspecified part of lung Qualified Code(s): J18.9 - Pneumonia, unspecified organism Is this a current diagnosis for this admission?: Yes
[2016-10-31] MEDS: IPRATROPIUM/ALBUTEROL 0.5-2.5 MG/3 ML AMPUL NEB SCH ×2 (14:08→20:53)
[2016-10-31 14:27] LABS: APPEARANCE,URINE SLIGHTLY-CLOUDY; BILIRUBIN,URINE SMALL (NEGATIVE); GLUCOSE, URINE NEGATIVE (NEGATIVE); KETONES,URINE 20 mg/dL (NEGATIVE); LEUKOCYTE ESTERASE,URINE NEGATIVE (NEGATIVE); NITRITE,URINE NEGATIVE (NEGATIVE); PROTEIN,URINE 100 mg/dL (NEGATIVE); URINE SPECIFIC GRAVITY 1.033; UROBILINOGEN,URINE NEGATIVE mg/dL (<2.0)
[2016-10-31] MEDS ORDERED: ENOXAPARIN SODIUM INJ 40 MG/0.4 ML DISP.SYRIN SUBCUT ONE (14:30)
[2016-10-31] MEDS: PROPOFOL 100 ML IV PRN ×2 (15:38→19:46)
--- NOTE | 2016-10-31 18:47 | PDOC PROGRESS REPORT ---
Subjective Progress Note for:: 10/31/16 Subjective:: Patient condition decompensated , she was transferred to intensive care unit presently intubated on mechanical ventilation Physical Exam Vital Signs: Temp Pulse Resp BP Pulse Ox 99.3 F 82 13 136/63 H 100 10/31/16 16:00 10/31/16 17:47 10/31/16 18:00 10/31/16 17:47 10/31/16 17:47 Intake & Output 10/30/16 10/31/16 11/01/16 06:59 06:59 06:59 Intake Total 426 422 834 Output Total 400 700 399 Balance 26 -278 435 Weight 63.6 kg 63.5 kg Head exam: PRESENT: atraumatic, normocephalic Mouth exam: PRESENT: moist, tongue midline Neck exam: PRESENT: full ROM Respiratory exam: PRESENT: other - Decreased air entry bilaterally Cardiovascular exam: PRESENT: RRR, +S1, +S2 Vascular exam: PRESENT: normal capillary refill GI/Abdominal exam: PRESENT: normal bowel sounds, soft Rectal exam: PRESENT: deferred Neurological exam: PRESENT: alert, awake, oriented to person, oriented to place , oriented to time, oriented to situation, CN II-XII grossly intact. ABSENT: motor sensory deficit Psychiatric exam: PRESENT: appropriate affect, normal mood. ABSENT: homicidal ideation, suicidal ideation Skin exam: PRESENT: dry, intact, warm Results Laboratory Results: 10/31/16 04:23 10/31/16 17:52 10/31/16 10/31/16 10/31/16 04:23 04:23 08:10 WBC 24.7 H RBC 3.61 L Hgb 10.6 L Hct 32.6 L MCV 90 MCH 29.2 MCHC 32.4 RDW 15.3 H Plt Count 262 Seg Neutrophils % Not Reportable Lymphocytes % Not Reportable Monocytes % Not Reportable Eosinophils % Not Reportable Basophils % Not Reportable Absolute Neutrophils Not Reportable Absolute Lymphocytes Not Reportable Absolute Monocytes Not Reportable Absolute Eosinophils Not Reportable Absolute Basophils Not Reportable Carbonic Acid HCO3/H2CO3 Ratio ABG pH ABG pCO2 ABG pO2 ABG HCO3 ABG O2 Saturation ABG Base Excess FiO2 Sodium 144.2 Potassium 3.1 L Chloride 100 Carbon Dioxide 31 H Anion Gap 13 BUN 14 Creatinine 0.71 Est GFR ( Amer) > 60 Est GFR (Non-Af Amer) > 60 Glucose 110 Calcium 9.8 Total Bilirubin 0.6 AST 37 H ALT 28 Alkaline Phosphatase 74 Total Protein 7.2 Albumin 3.9 Urine Color Urine Appearance Urine pH Ur Specific [place] Urine Protein Urine Glucose (UA) Urine Ketones Urine Blood Urine Nitrite Ur Leukocyte Esterase Urine WBC (Auto) Urine RBC (Auto) Stool Occult Blood POSITIVE 10/31/16 10/31/16 10/31/16 08:24 12:38 14:00 WBC RBC Hgb Hct MCV MCH MCHC RDW Plt Count Seg Neutrophils % Lymphocytes % Monocytes % Eosinophils % Basophils % Absolute Neutrophils Absolute Lymphocytes Absolute Monocytes Absolute Eosinophils Absolute Basophils Carbonic Acid 1.10 1.18 HCO3/H2CO3 Ratio 26:1 23:1 ABG pH 7.51 H 7.47 H ABG pCO2 36.6 39.1 ABG pO2 50.7 L 93.3 ABG HCO3 28.8 H 27.8 H ABG O2 Saturation 89.5 L 97.5 ABG Base Excess 5.6 3.8 FiO2 30% 35% Sodium Potassium Chloride Carbon Dioxide Anion Gap BUN Creatinine Est GFR ( Amer) Est GFR (Non-Af Amer) Glucose Calcium Total Bilirubin AST ALT Alkaline Phosphatase Total Protein Albumin Urine Color YELLOW Urine Appearance SLIGHTLY-CLOUDY Urine pH 5.0 Ur Specific [place] 1.033 Urine Protein 100 H Urine Glucose (UA) NEGATIVE Urine Ketones 20 H Urine Blood MODERATE H Urine Nitrite NEGATIVE Ur Leukocyte Esterase NEGATIVE Urine WBC (Auto) 21 Urine RBC (Auto) >182 Stool Occult Blood 10/31/16 10/31/16 17:52 17:52 WBC RBC Hgb Hct MCV MCH MCHC RDW Plt Count Seg Neutrophils % Lymphocytes % Monocytes % Eosinophils % Basophils % Absolute Neutrophils Absolute Lymphocytes Absolute Monocytes Absolute Eosinophils Absolute Basophils Carbonic Acid HCO3/H2CO3 Ratio ABG pH ABG pCO2 ABG pO2 ABG HCO3 ABG O2 Saturation ABG Base Excess FiO2 Sodium Potassium 3.4 L Chloride Carbon Dioxide Anion Gap BUN Creatinine Est GFR ( Amer) Est GFR (Non-Af Amer) Glucose 80 Calcium Total Bilirubin AST ALT Alkaline Phosphatase Total Protein Albumin Urine Color Urine Appearance Urine pH Ur Specific [place] Urine Protein Urine Glucose (UA) Urine Ketones Urine Blood Urine Nitrite Ur Leukocyte Esterase Urine WBC (Auto) Urine RBC (Auto) Stool Occult Blood 10/29/16 20:10 Catheterized Urine Urine Culture - Final NO GROWTH 2 DAYS 10/29/16 10/30/1617 19:25 01:04 07:00 CK-MB (CK-2) 9.73 H 5.86 H 3.83 Troponin I < 0.012 < 0.012 < 0.012 Impressions: Chest X-Ray 10/31/16 00:00 IMPRESSION: Endotracheal tube NG tube are in satisfactory position. Persistent right lower lobe infiltrate. Assessment & Plan - Diagnosis (1) Acute hypoxemic respiratory failure Is this a current diagnosis for this admission?: YesPlan: She has pneumonia, progressive now require mechanical ventilation, she became very tachypneic, the etiology of the acute respiratory y failure is multifactorial including withdrawal from opioid, pneumonia. She will continue IV antibiotic, pulmonary following (2) Pneumonia Qualifiers: Pneumonia type: due to unspecified organism Laterality: right Lung location: lower lobe of lung Qualified Code(s): J18.1 - Lobar pneumonia, unspecified organism Is this a current diagnosis for this admission?: Yes (3) COPD (chronic obstructive pulmonary disease) Is this a current diagnosis for this admission?: Yes (4) Acute and chronic respiratory failure with hypercapnia Is this a current diagnosis for this admission?: Yes (5) COPD (chronic obstructive pulmonary disease) Qualifiers: COPD type: unspecified COPD Qualified Code(s): J44.9 - Chronic obstructive pulmonary disease, unspecified Is this a current diagnosis for this admission?: Yes (6) Hypoxia Is this a current diagnosis for this admission?: Yes (7) Pneumonia Qualifiers: Pneumonia type: due to unspecified organism Laterality: unspecified laterality Lung location: unspecified part of lung Qualified Code(s): J18.9 - Pneumonia, unspecified organism Is this a current diagnosis for this admission?: Yes
[2016-10-31] MEDS: FAMOTIDINE INJ/PF 20 MG/2 ML SDV IV SCH (21:49)
[2016-10-31] MEDS: OXYCODONE-ACETAMINOPHEN 5-325 MG TABLET NG PRN (21:50)
[2016-11-01] MEDS: PROPOFOL 100 ML IV PRN ×6 (00:54→23:39)
[2016-11-01] MEDS: IPRATROPIUM/ALBUTEROL 0.5-2.5 MG/3 ML AMPUL NEB SCH ×4 (02:18→19:49)
[2016-11-01] MEDS: OXYCODONE HCL IR 5 MG TABLET NG PRN ×4 (02:46→21:17)
[2016-11-01] MEDS: OXYCODONE-ACETAMINOPHEN 5-325 MG TABLET NG PRN ×3 (05:11→21:18)
[2016-11-01] MEDS: LORAZEPAM 0.5 MG TABLET NG SCH ×3 (05:12→21:19)
[2016-11-01 05:41] LABS: ARTERIAL BLOOD BASE EXCESS 0.9 mmol/L; ARTERIAL BLOOD O2 SATURATION 97.6 % (94-98)
[2016-11-01 05:57] LABS: ALANINE AMINOTRANSFERASE 31 U/L (9-52); ALBUMIN 2.7 g/dL (3.5-5.0); ALKALINE PHOSPHATASE 59 U/L (38-126); ANION GAP 12 (5-19); ASPARTATE AMINO TRANSFERASE 21 U/L (14-36); BILIRUBIN,DIRECT 0.3 mg/dL (0.0-0.4); BILIRUBIN,TOTAL 0.3 mg/dL (0.2-1.3); BLOOD UREA NITROGEN 17 mg/dL (7-20); CALCIUM 7.7 mg/dL (8.4-10.2); CARBON DIOXIDE 21 mmol/L (22-30); CHLORIDE 105 mmol/L (98-107); CREATININE RESULT 0.61 mg/dL (0.52-1.25); GLUCOSE 86 mg/dL (75-110); MAGNESIUM 1.9 mg/dL (1.6-2.3); PHOSPHORUS 2.6 mg/dL (2.5-4.5); POTASSIUM 4.3 mmol/L (3.6-5.0); SODIUM 137.7 mmol/L (137-145)
[2016-11-01 06:17] LABS: HEMOGLOBIN 9.2 g/dL (12.0-15.5); HGB HCT DIFFERENCE -0.4; MEAN CORPUSCULAR HEMOGLOBIN 29.4 pg (27.0-33.4); MEAN CORPUSCULAR HGB CONC 32.8 g/dL (32.0-36.0); MEAN CORPUSCULAR VOLUME 90 fl (80-97); RED BLOOD COUNT 3.12 10^6/uL (3.72-5.28); RED CELL DISTRIBUTION WIDTH 15.3 % (11.5-14.0); WHITE BLOOD COUNT 20.2 10^3/uL (4.0-10.5)
[2016-11-01 06:31] LABS: BASOPHILS % (MANUAL) 0 % (0-2); EOSINOPHILS % (MANUAL) 0 % (0-6); LYMPHOCYTES % (MANUAL) 3 % (13-45); TOTAL CELLS COUNTED 100
[2016-11-01 06:32] LABS: ANISOCYTOSIS SLIGHT; POLYCHROMASIA SLIGHT; ROULEAUX SLIGHT; SCHISTOCYTES SLIGHT; TEAR DROP CELLS SLIGHT; TOXIC GRANULATION SLIGHT
--- NOTE | 2016-11-01 06:41 | RADIOLOGY REPORT (SQ) ---
EXAM DESCRIPTION: CHEST SINGLE VIEW COMPLETED DATE/TIME: 11/01/2016 6:26 am REASON FOR STUDY: pna/resp failure COMPARISON: 10/31/2016. EXAM PARAMETERS: NUMBER OF VIEWS: One view. TECHNIQUE: Single frontal radiographic view of the chest acquired. RADIATION DOSE: NA LIMITATIONS: None. FINDINGS: LUNGS AND PLEURA: Small to moderate mixed airspace/layered effusion and interstitial opaci ty of bilateral lower lobes, right more than left. Blunting of bilateral costophrenic angles. Small calcified granuloma, bilaterally. MEDIASTINUM AND HILAR STRUCTURES: No masses. Contour normal. HEART AND VASCULAR STRUCTURES: Heart normal in size. Normal vasculature. BONES: No acute findings. HARDWARE: Adequate appearing endotracheal tube. Left internal jugular central line tip is 4 cm above the cavoatrial junction. Likely adequate nasogastric tube tip courses with proximal port overlying the left upper abdominal quadrant -stomach. OTHER: No other significant finding. IMPRESSION: No significant interval change. TECHNICAL DOCUMENTATION: JOB ID: [id number]
[2016-11-01] MEDS: CEFEPIME HCL 2 GM in DEXTROSE 5%-WATER 50 ML IV SCH ×2 (09:32→21:17)
[2016-11-01] MEDS: LEVOFLOXACIN 750 MG/D5W RTU 750 MG/150 ML RTUPB IV SCH (09:32)
[2016-11-01] MEDS: VALSARTAN 80 MG TABLET NG SCH (09:32)
[2016-11-01] MEDS: FAMOTIDINE INJ/PF 20 MG/2 ML SDV IV SCH ×2 (09:33→21:19)
[2016-11-01] MEDS: ASPIRIN 81 MG TABLET, CHEWABLE NG SCH (09:33)
[2016-11-01] MEDS: ENOXAPARIN SODIUM INJ 40 MG/0.4 ML DISP.SYRIN SUBCUT SCH ×2 (09:34→21:19)
[2016-11-01] MEDS: ROFLUMILAST 500 MCG TABLET NG SCH (09:34)
--- NOTE | 2016-11-01 13:16 | PDOC PROGRESS REPORT ---
Subjective Progress Note for:: 11/01/16 Subjective:: intubated Physical Exam Vital Signs: Temp Pulse Resp BP Pulse Ox 99.4 F 93 19 136/65 H 100 11/01/16 07:55 11/01/16 07:55 11/01/16 07:55 11/01/16 07:55 11/01/16 07:55 Intake & Output 10/31/16 11/01/16 11/02/16 06:59 06:59 06:59 Intake Total 422 1701 Output Total 700 719 30 Balance -278 982 -30 Weight 63.5 kg 62.3 kg General appearance: PRESENT: no acute distress, disheveled, well-developed Head exam: PRESENT: atraumatic, normocephalic Eye exam: PRESENT: conjunctiva pale Mouth exam: PRESENT: dry mucosa, neck supple, other - ET tube in place Neck exam: ABSENT: carotid bruit, JVD, lymphadenopathy, thyromegaly Respiratory exam: PRESENT: decreased breath sounds, prolonged expiratory phas, rhonchi, symmetrical, unlabored Cardiovascular exam: PRESENT: RRR, +S1, +S2 Pulses: PRESENT: normal radial pulses GI/Abdominal exam: PRESENT: normal bowel sounds, soft. ABSENT: distended, guarding, mass, organolmegaly, rebound, tenderness Rectal exam: PRESENT: deferred Gentrourinary exam: PRESENT: indwelling catheter Musculoskeletal exam: PRESENT: normal inspection Skin exam: PRESENT: dry, warm Results Laboratory Results: 11/01/16 05:25 11/01/16 05:25 10/31/16 10/31/16 10/31/16 08:10 08:24 12:38 WBC RBC Hgb Hct MCV MCH MCHC RDW Plt Count Seg Neutrophils % Lymphocytes % Monocytes % Eosinophils % Basophils % Absolute Neutrophils Absolute Lymphocytes Absolute Monocytes Absolute Eosinophils Absolute Basophils Carbonic Acid 1.10 1.18 HCO3/H2CO3 Ratio 26:1 23:1 ABG pH 7.51 H 7.47 H ABG pCO2 36.6 39.1 ABG pO2 50.7 L 93.3 ABG HCO3 28.8 H 27.8 H ABG O2 Saturation 89.5 L 97.5 ABG Base Excess 5.6 3.8 FiO2 30% 35% Sodium Potassium Chloride Carbon Dioxide Anion Gap BUN Creatinine Est GFR ( Amer) Est GFR (Non-Af Amer) Glucose Calcium Phosphorus Magnesium Total Bilirubin AST ALT Alkaline Phosphatase Total Protein Albumin Urine Color Urine Appearance Urine pH Ur Specific [place] Urine Protein Urine Glucose (UA) Urine Ketones Urine Blood Urine Nitrite Ur Leukocyte Esterase Urine WBC (Auto) Urine RBC (Auto) Stool Occult Blood POSITIVE 10/31/16 10/31/16 10/31/16 14:00 17:52 17:52 WBC RBC Hgb Hct MCV MCH MCHC RDW Plt Count Seg Neutrophils % Lymphocytes % Monocytes % Eosinophils % Basophils % Absolute Neutrophils Absolute Lymphocytes Absolute Monocytes Absolute Eosinophils Absolute Basophils Carbonic Acid HCO3/H2CO3 Ratio ABG pH ABG pCO2 ABG pO2 ABG HCO3 ABG O2 Saturation ABG Base Excess FiO2 Sodium Potassium 3.4 L Chloride Carbon Dioxide Anion Gap BUN Creatinine Est GFR ( Amer) Est GFR (Non-Af Amer) Glucose 80 Calcium Phosphorus Magnesium Total Bilirubin AST ALT Alkaline Phosphatase Total Protein Albumin Urine Color YELLOW Urine Appearance SLIGHTLY-CLOUDY Urine pH 5.0 Ur Specific [place] 1.033 Urine Protein 100 H Urine Glucose (UA) NEGATIVE Urine Ketones 20 H Urine Blood MODERATE H Urine Nitrite NEGATIVE Ur Leukocyte Esterase NEGATIVE Urine WBC (Auto) 21 Urine RBC (Auto) >182 Stool Occult Blood 11/01/16 11/01/16 11/01/16 05:25 05:25 05:25 WBC 20.2 H RBC 3.12 L Hgb 9.2 L Hct 28.0 L MCV 90 MCH 29.4 MCHC 32.8 RDW 15.3 H Plt Count 245 Seg Neutrophils % Not Reportable Lymphocytes % Not Reportable Monocytes % Not Reportable Eosinophils % Not Reportable Basophils % Not Reportable Absolute Neutrophils Not Reportable Absolute Lymphocytes Not Reportable Absolute Monocytes Not Reportable Absolute Eosinophils Not Reportable Absolute Basophils Not Reportable Carbonic Acid 1.07 HCO3/H2CO3 Ratio 22:1 ABG pH 7.46 H ABG pCO2 35.4 ABG pO2 93.8 ABG HCO3 24.6 ABG O2 Saturation 97.6 ABG Base Excess 0.9 FiO2 28% Sodium 137.7 Potassium 4.3 Chloride 105 Carbon Dioxide 21 L Anion Gap 12 BUN 17 Creatinine 0.61 Est GFR ( Amer) > 60 Est GFR (Non-Af Amer) > 60 Glucose 86 Calcium 7.7 L Phosphorus 2.6 Magnesium 1.9 Total Bilirubin 0.3 AST 21 ALT 31 Alkaline Phosphatase 59 Total Protein 5.0 L Albumin 2.7 L Urine Color Urine Appearance Urine pH Ur Specific [place] Urine Protein Urine Glucose (UA) Urine Ketones Urine Blood Urine Nitrite Ur Leukocyte Esterase Urine WBC (Auto) Urine RBC (Auto) Stool Occult Blood 10/29/16 20:10 Catheterized Urine Urine Culture - Final NO GROWTH 2 DAYS 10/29/16 10/30/16 10/30/16 19:25 01:04 07:00 CK-MB (CK-2) 9.73 H 5.86 H 3.83 Troponin I < 0.012 < 0.012 < 0.012 Impressions: Chest X-Ray 11/01/16 06:00 IMPRESSION: No significant interval change. Assessment & Plan - Diagnosis (1) Acute and chronic respiratory failure with hypercapnia Is this a current diagnosis for this admission?: YesPlan: ABGs excellent minute ventilation 7-8 L doing well on pressure support and CPAP but requires sedation not to get too agitated (2) COPD (chronic obstructive pulmonary disease) Qualifiers: COPD type: unspecified COPD Qualified Code(s): J44.9 - Chronic obstructive pulmonary disease, unspecified Is this a current diagnosis for this admission?: YesPlan: Continue current bronchodilator therapy (3) Pneumonia Qualifiers: Pneumonia type: due to unspecified organism Laterality: unspecified laterality Lung location: unspecified part of lung Qualified Code(s): J18.9 - Pneumonia, unspecified organism Is this a current diagnosis for this admission?: YesPlan: WBC trending downward no positive cultures thus far - Time Critical Time spent with patient: 35 or more minutes - 45 min
[2016-11-01] MEDS: NORMAL SALINE 1000 ML 1,000 ML IV PRN (16:45)
--- NOTE | 2016-11-01 19:03 | PDOC PROGRESS REPORT ---
Subjective Progress Note for:: 11/01/16 Subjective:: Patient is still on mechanical ventilation, weaning trials were attempted without success Physical Exam Vital Signs: Temp Pulse Resp BP Pulse Ox 99.8 F 96 22 H 152/64 H 97 11/01/16 18:00 11/01/16 18:00 11/01/16 18:00 11/01/16 18:00 11/01/16 18:00 Intake & Output 10/31/16 11/01/16 11/02/16 06:59 06:59 06:59 Intake Total 422 1701 680 Output Total 700 719 505 Balance -278 982 175 Weight 63.5 kg 62.3 kg General appearance: PRESENT: no acute distress Eye exam: PRESENT: PERRLA Respiratory exam: PRESENT: rhonchi Cardiovascular exam: PRESENT: +S1, +S2 GI/Abdominal exam: PRESENT: soft Results Laboratory Results: 11/01/16 05:25 11/01/16 05:25 11/01/16 11/01/16 11/01/16 05:25 05:25 05:25 WBC 20.2 H RBC 3.12 L Hgb 9.2 L Hct 28.0 L MCV 90 MCH 29.4 MCHC 32.8 RDW 15.3 H Plt Count 245 Seg Neutrophils % Not Reportable Lymphocytes % Not Reportable Monocytes % Not Reportable Eosinophils % Not Reportable Basophils % Not Reportable Absolute Neutrophils Not Reportable Absolute Lymphocytes Not Reportable Absolute Monocytes Not Reportable Absolute Eosinophils Not Reportable Absolute Basophils Not Reportable Carbonic Acid 1.07 HCO3/H2CO3 Ratio 22:1 ABG pH 7.46 H ABG pCO2 35.4 ABG pO2 93.8 ABG HCO3 24.6 ABG O2 Saturation 97.6 ABG Base Excess 0.9 FiO2 28% Sodium 137.7 Potassium 4.3 Chloride 105 Carbon Dioxide 21 L Anion Gap 12 BUN 17 Creatinine 0.61 Est GFR ( Amer) > 60 Est GFR (Non-Af Amer) > 60 Glucose 86 Calcium 7.7 L Phosphorus 2.6 Magnesium 1.9 Total Bilirubin 0.3 AST 21 ALT 31 Alkaline Phosphatase 59 Total Protein 5.0 L Albumin 2.7 L 10/29/16 10/30/16 10/30/16 19:25 01:04 07:00 CK-MB (CK-2) 9.73 H 5.86 H 3.83 Troponin I < 0.012 < 0.012 < 0.012 Impressions: Chest X-Ray 11/01/16 06:00 IMPRESSION: No significant interval change. Assessment & Plan - Diagnosis (1) Acute hypoxemic respiratory failure Is this a current diagnosis for this admission?: YesPlan: She has pneumonia, progressive now require mechanical ventilation, she became very tachypneic, the etiology of the acute respiratory y failure is multifactorial including withdrawal from opioid, pneumonia. She will continue IV antibiotic, pulmonary following (2) Pneumonia Qualifiers: Pneumonia type: due to unspecified organism Laterality: right Lung location: lower lobe of lung Qualified Code(s): J18.1 - Lobar pneumonia, unspecified organism Is this a current diagnosis for this admission?: Yes (3) COPD (chronic obstructive pulmonary disease) Is this a current diagnosis for this admission?: Yes (4) Acute and chronic respiratory failure with hypercapnia Is this a current diagnosis for this admission?: Yes (5) COPD (chronic obstructive pulmonary disease) Qualifiers: COPD type: unspecified COPD Qualified Code(s): J44.9 - Chronic obstructive pulmonary disease, unspecified Is this a current diagnosis for this admission?: Yes (7) Pneumonia Qualifiers: Pneumonia type: due to unspecified organism Laterality: unspecified laterality Lung location: unspecified part of lung Qualified Code(s): J18.9 - Pneumonia, unspecified organism Is this a current diagnosis for this admission?: Yes
[2016-11-02] MEDS: IPRATROPIUM/ALBUTEROL 0.5-2.5 MG/3 ML AMPUL NEB SCH ×4 (02:35→20:59)
[2016-11-02] MEDS: PROPOFOL 100 ML IV PRN ×2 (03:31→06:18)
[2016-11-02] MEDS: LORAZEPAM 0.5 MG TABLET NG SCH (05:26)
[2016-11-02 06:22] LABS: HEMATOCRIT 27.2 % (36.0-47.0); HEMOGLOBIN 8.9 g/dL (12.0-15.5); HGB HCT DIFFERENCE -0.5; MEAN CORPUSCULAR HEMOGLOBIN 29.7 pg (27.0-33.4); MEAN CORPUSCULAR HGB CONC 32.7 g/dL (32.0-36.0); MEAN CORPUSCULAR VOLUME 91 fl (80-97); RED BLOOD COUNT 2.99 10^6/uL (3.72-5.28); WHITE BLOOD COUNT 14.1 10^3/uL (4.0-10.5)
[2016-11-02 06:31] LABS: ARTERIAL BLOOD BASE EXCESS 2.1 mmol/L; ARTERIAL BLOOD O2 SATURATION 97.1 % (94-98)
--- NOTE | 2016-11-02 06:33 | RADIOLOGY REPORT (SQ) ---
EXAM DESCRIPTION: CHEST SINGLE VIEW COMPLETED DATE/TIME: 11/02/2016 6:17 am REASON FOR STUDY: resp failure COMPARISON: 11/01/2016. EXAM PARAMETERS: NUMBER OF VIEWS: One view. TECHNIQUE: Single frontal radiographic view of the chest acquired. RADIATION DOSE: NA LIMITATIONS: None. FINDINGS: LUNGS AND PLEURA: Small [id number] mixed interstitial and airspace opacities of bila teral lower lobes, right much more than left with interval clearing on the left. Small blunting -eff usion involves the right costophrenic angle. Likely small calcified granuloma of the right upper lob e. MEDIASTINUM AND HILAR STRUCTURES: No masses. Contour normal. HEART AND VASCULAR STRUCTURES: Heart normal in size. Normal vasculature. BONES: No acute findings. HARDWARE: Adequate appearing endotracheal tube and likely adequate partially imaged nasogastric tube. Tip of a left IJ central line is at the cavoatrial junction partially obscured. OTHER: No other significant finding. IMPRESSION: Streaky opacity -effusion of the right lower lobe predominantly. Interval improvement. Lines and tubes. TECHNICAL DOCUMENTATION: JOB ID: [id number]
[2016-11-02 06:47] LABS: ALANINE AMINOTRANSFERASE 34 U/L (9-52); ALBUMIN 2.7 g/dL (3.5-5.0); ALKALINE PHOSPHATASE 65 U/L (38-126); ANION GAP 9 (5-19); ASPARTATE AMINO TRANSFERASE 18 U/L (14-36); BILIRUBIN,DIRECT 0.3 mg/dL (0.0-0.4); BILIRUBIN,TOTAL 0.3 mg/dL (0.2-1.3); BLOOD UREA NITROGEN 14 mg/dL (7-20); CALCIUM 8.2 mg/dL (8.4-10.2); CARBON DIOXIDE 25 mmol/L (22-30); CHLORIDE 106 mmol/L (98-107); CREATININE RESULT 0.65 mg/dL (0.52-1.25); GLUCOSE 91 mg/dL (75-110); MAGNESIUM 2.1 mg/dL (1.6-2.3); PHOSPHORUS 2.9 mg/dL (2.5-4.5); POTASSIUM 3.8 mmol/L (3.6-5.0); SODIUM 140.3 mmol/L (137-145); TOTAL PROTEIN 5.2 g/dL (6.3-8.2)
[2016-11-02] MEDS: OXYCODONE HCL IR 5 MG TABLET NG PRN ×2 (08:27→18:07)
[2016-11-02] MEDS ORDERED: MIDAZOLAM 2 MG/2 ML INJ IV ONE (09:20)
[2016-11-02] MEDS: ROFLUMILAST 500 MCG TABLET NG SCH (10:03)
[2016-11-02] MEDS: VALSARTAN 80 MG TABLET NG SCH (10:03)
[2016-11-02] MEDS: FAMOTIDINE INJ/PF 20 MG/2 ML SDV IV SCH ×2 (10:03→21:35)
[2016-11-02] MEDS: ENOXAPARIN SODIUM INJ 40 MG/0.4 ML DISP.SYRIN SUBCUT SCH ×2 (10:04→21:34)
[2016-11-02] MEDS: LEVOFLOXACIN 750 MG/D5W RTU 750 MG/150 ML RTUPB IV SCH (10:04)
[2016-11-02] MEDS: ASPIRIN 81 MG TABLET, CHEWABLE NG SCH (10:04)
--- NOTE | 2016-11-02 11:31 | PDOC PROGRESS REPORT ---
Subjective Progress Note for:: 11/02/16 Subjective:: intubated,Somewhat arousable Physical Exam Vital Signs: Temp Pulse Resp BP Pulse Ox 100.1 F 88 15 151/60 H 100 11/02/16 08:32 11/02/16 08:00 11/02/16 08:00 11/02/16 07:46 11/02/16 08:00 Intake & Output 11/01/16 11/02/16 11/03/16 06:59 06:59 06:59 Intake Total 1701 1357 Output Total 719 1115 45 Balance 982 242 -45 Weight 62.3 kg 60.4 kg General appearance: PRESENT: no acute distress, disheveled, thin, well-developed Head exam: PRESENT: atraumatic, normocephalic Eye exam: PRESENT: conjunctiva pale, EOMI Mouth exam: PRESENT: dry mucosa, neck supple, other - ET tube in place Teeth exam: PRESENT: poor dentation Neck exam: ABSENT: carotid bruit, JVD, lymphadenopathy, thyromegaly Respiratory exam: PRESENT: decreased breath sounds, prolonged expiratory phas, rales - Right hemithorax, unlabored Cardiovascular exam: PRESENT: RRR, +S1 Pulses: PRESENT: normal radial pulses GI/Abdominal exam: PRESENT: normal bowel sounds, soft. ABSENT: distended, guarding, mass, organolmegaly, rebound, tenderness Rectal exam: PRESENT: deferred Gentrourinary exam: PRESENT: indwelling catheter Musculoskeletal exam: PRESENT: normal inspection Skin exam: PRESENT: dry, warm Results Laboratory Results: 11/02/16 06:00 11/02/16 06:00 11/02/16 11/02/16 11/02/16 06:00 06:00 06:00 WBC 14.1 H RBC 2.99 L Hgb 8.9 L Hct 27.2 L MCV 91 MCH 29.7 MCHC 32.7 RDW 15.0 H Plt Count 244 Carbonic Acid 1.14 HCO3/H2CO3 Ratio 22:1 ABG pH 7.45 ABG pCO2 38.0 ABG pO2 87.6 ABG HCO3 26.1 H ABG O2 Saturation 97.1 ABG Base Excess 2.1 FiO2 28% Sodium 140.3 Potassium 3.8 Chloride 106 Carbon Dioxide 25 Anion Gap 9 BUN 14 Creatinine 0.65 Est GFR ( Amer) > 60 Est GFR (Non-Af Amer) > 60 Glucose 91 Calcium 8.2 L Phosphorus 2.9 Magnesium 2.1 Total Bilirubin 0.3 AST 18 ALT 34 Alkaline Phosphatase 65 Total Protein 5.2 L Albumin 2.7 L 10/31/16 13:15 Tracheal Aspirate Gram Stain - Final 10/29/16 10/30/16 10/30/16 19:25 01:04 07:00 CK-MB (CK-2) 9.73 H 5.86 H 3.83 Troponin I < 0.012 < 0.012 < 0.012 Impressions: Chest X-Ray 11/02/16 06:00 IMPRESSION: Streaky opacity -effusion of the right lower lobe predominantly. Interval improvement. Lines and tubes. Assessment & Plan - Diagnosis (1) Acute and chronic respiratory failure with hypercapnia Is this a current diagnosis for this admission?: YesPlan: Low FiO2 low minute ventilation ABGs are acceptable patient gets profoundly tachypneic when sedation vacation is approached (2) COPD (chronic obstructive pulmonary disease) Qualifiers: COPD type: unspecified COPD Qualified Code(s): J44.9 - Chronic obstructive pulmonary disease, unspecified Is this a current diagnosis for this admission?: YesPlan: Continue current bronchodilator therapy (3) Pneumonia Qualifiers: Pneumonia type: due to unspecified organism Laterality: unspecified laterality Lung location: unspecified part of lung Qualified Code(s): J18.9 - Pneumonia, unspecified organism Is this a current diagnosis for this admission?: YesPlan: T-max 100.1, WBC declining Right lower lobe opacity scattered infiltrates - Time Critical Time spent with patient: 35 or more minutes - 45 min
[2016-11-02] MEDS: CEFEPIME HCL 2 GM in DEXTROSE 5%-WATER 50 ML IV SCH ×2 (12:20→21:35)
[2016-11-02 12:44] LABS: ARTERIAL BLOOD BASE EXCESS 2.6 mmol/L; ARTERIAL BLOOD O2 SATURATION 97.7 % (94-98)
[2016-11-02] MEDS: OXYCODONE-ACETAMINOPHEN 5-325 MG TABLET NG PRN ×2 (12:56→21:41)
--- NOTE | 2016-11-02 13:23 | PDOC PROGRESS REPORT ---
Subjective Progress Note for:: 11/02/16 Subjective:: She was seen by the bedside, she was extubated today, she still requires BiPAP Physical Exam Vital Signs: Temp Pulse Resp BP Pulse Ox 100.1 F 88 20 161/57 H 95 11/02/16 08:32 11/02/16 08:00 11/02/16 12:00 11/02/16 11:46 11/02/16 12:50 Intake & Output 11/01/16 11/02/16 11/03/16 06:59 06:59 06:59 Intake Total 1701 1357 Output Total 719 1115 490 Balance 982 242 -490 Weight 62.3 kg 60.4 kg General appearance: PRESENT: no acute distress Eye exam: PRESENT: PERRLA Respiratory exam: PRESENT: clear to auscultation melanie Cardiovascular exam: PRESENT: +S1, +S2 GI/Abdominal exam: PRESENT: soft Neurological exam: PRESENT: alert, CN II-XII grossly intact Results Laboratory Results: 11/02/16 06:00 11/02/16 06:00 11/02/16 11/02/16 11/02/16 06:00 06:00 06:00 WBC 14.1 H RBC 2.99 L Hgb 8.9 L Hct 27.2 L MCV 91 MCH 29.7 MCHC 32.7 RDW 15.0 H Plt Count 244 Carbonic Acid 1.14 HCO3/H2CO3 Ratio 22:1 ABG pH 7.45 ABG pCO2 38.0 ABG pO2 87.6 ABG HCO3 26.1 H ABG O2 Saturation 97.1 ABG Base Excess 2.1 FiO2 28% Sodium 140.3 Potassium 3.8 Chloride 106 Carbon Dioxide 25 Anion Gap 9 BUN 14 Creatinine 0.65 Est GFR ( Amer) > 60 Est GFR (Non-Af Amer) > 60 Glucose 91 Calcium 8.2 L Phosphorus 2.9 Magnesium 2.1 Total Bilirubin 0.3 AST 18 ALT 34 Alkaline Phosphatase 65 Total Protein 5.2 L Albumin 2.7 L Stool Occult Blood 11/02/16 11/02/16 11:30 12:16 WBC RBC Hgb Hct MCV MCH MCHC RDW Plt Count Carbonic Acid 1.08 HCO3/H2CO3 Ratio 24:1 ABG pH 7.48 H ABG pCO2 36.0 ABG pO2 95.1 ABG HCO3 26.1 H ABG O2 Saturation 97.7 ABG Base Excess 2.6 FiO2 28% Sodium Potassium Chloride Carbon Dioxide Anion Gap BUN Creatinine Est GFR ( Amer) Est GFR (Non-Af Amer) Glucose Calcium Phosphorus Magnesium Total Bilirubin AST ALT Alkaline Phosphatase Total Protein Albumin Stool Occult Blood POSITIVE 10/31/16 13:15 Tracheal Aspirate Gram Stain - Final 10/31/16 13:15 Tracheal Aspirate Sputum Culture - Final C.albicans/C.dubliniensis Normal Rosa Absent 10/29/16 10/30/16 10/30/16 19:25 01:04 07:00 CK-MB (CK-2) 9.73 H 5.86 H 3.83 Troponin I < 0.012 < 0.012 < 0.012 Impressions: Chest X-Ray 11/02/16 06:00 IMPRESSION: Streaky opacity -effusion of the right lower lobe predominantly. Interval improvement. Lines and tubes. Assessment & Plan - Diagnosis (1) Acute hypoxemic respiratory failure Is this a current diagnosis for this admission?: Yes (2) Pneumonia Qualifiers: Pneumonia type: due to unspecified organism Laterality: right Lung location: lower lobe of lung Qualified Code(s): J18.1 - Lobar pneumonia, unspecified organism Is this a current diagnosis for this admission?: Yes (3) COPD (chronic obstructive pulmonary disease) Is this a current diagnosis for this admission?: Yes (4) Acute and chronic respiratory failure with hypercapnia Is this a current diagnosis for this admission?: Yes (5) COPD (chronic obstructive pulmonary disease) Qualifiers: COPD type: unspecified COPD Qualified Code(s): J44.9 - Chronic obstructive pulmonary disease, unspecified Is this a current diagnosis for this admission?: Yes (6) Hypoxia Is this a current diagnosis for this admission?: Yes (7) Pneumonia Qualifiers: Pneumonia type: due to unspecified organism Laterality: unspecified laterality Lung location: unspecified part of lung Qualified Code(s): J18.9 - Pneumonia, unspecified organism Is this a current diagnosis for this admission?: Yes
[2016-11-02 14:34] LABS: APPEARANCE,URINE CLEAR; BILIRUBIN,URINE NEGATIVE (NEGATIVE); GLUCOSE, URINE NEGATIVE (NEGATIVE); KETONES,URINE TRACE mg/dL (NEGATIVE); LEUKOCYTE ESTERASE,URINE NEGATIVE (NEGATIVE); NITRITE,URINE NEGATIVE (NEGATIVE); PROTEIN,URINE NEGATIVE (NEGATIVE); UROBILINOGEN,URINE NEGATIVE mg/dL (<2.0)
[2016-11-02] MEDS: MIDAZOLAM 2 MG/2 ML INJ IV SCH ×2 (15:11→21:36)
--- NOTE | 2016-11-02 21:18 | CONSULTATION REPORT E ---
Consultation Report NAME: DENNIS DEGROOT : 1955 AGE: 61Y DATE: 11/02/2016 603 A TO: JOSE WADSWORTH M.D. FROM: BOONE GOODWIN M.D. Requesting Physician REASON FOR CONSULTATION: Prominent catheter from the internal jugular vein towards the left anterior chest wall. HISTORY OF PRESENT ILLNESS: This is a 61-year-old female with history of lung cancer, COPD, and pneumonia. Apparently, she had Port-A-Cath inserted about 5 years ago for chemotherapy. In the Intensive Care Unit, patient noted to have prominent catheter underneath the skin. However, the catheter is being used now for IV access. On examination, the catheter is palpable underneath the skin but not through the skin. The chest x-ray showed the catheter is in good position and it is still functioning quite well. There is no evidence of inflammation or swelling or tenderness along the catheter. IMPRESSION: Prominent catheter underneath the skin. Catheter is working well at this time. The catheter can be left alone at this time unless it erodes through the skin. Of course, I would avoid trying to puncture the catheter. If the catheter noted to be eroding the skin then it can be removed at that time. However, at this time it is safe to leave the catheter as it is. DICTATING PHYSICIAN: JOSE WADSWORTH M.D. 1954 2051 PHY#: [id number] ID: [id number] JOB#: [id number] ACCT: [id number] cc:JOSE WADSWORTH M.D. >
[2016-11-02] MEDS ORDERED: QUETIAPINE FUMARATE 100 MG TABLET PO SCH (22:00)
[2016-11-03] MEDS: IPRATROPIUM/ALBUTEROL 0.5-2.5 MG/3 ML AMPUL NEB SCH ×4 (02:06→20:13)
[2016-11-03] MEDS: MIDAZOLAM 2 MG/2 ML INJ IV SCH ×3 (05:39→16:26)
[2016-11-03] MEDS: OXYCODONE-ACETAMINOPHEN 5-325 MG TABLET NG PRN (06:10)
[2016-11-03] MEDS: ENOXAPARIN SODIUM INJ 40 MG/0.4 ML DISP.SYRIN SUBCUT SCH ×2 (09:39→21:25)
[2016-11-03] MEDS: VALSARTAN 80 MG TABLET NG SCH (09:40)
[2016-11-03] MEDS: FAMOTIDINE INJ/PF 20 MG/2 ML SDV IV SCH ×2 (09:40→21:25)
[2016-11-03] MEDS: ROFLUMILAST 500 MCG TABLET NG SCH (09:41)
[2016-11-03] MEDS: ASPIRIN 81 MG TABLET, CHEWABLE NG SCH (09:41)
[2016-11-03] MEDS: CEFEPIME HCL 2 GM in DEXTROSE 5%-WATER 50 ML IV SCH ×2 (09:41→21:02)
[2016-11-03] MEDS: NORMAL SALINE 1000 ML 1,000 ML IV PRN (09:44)
[2016-11-03] MEDS: LEVOFLOXACIN 750 MG/D5W RTU 750 MG/150 ML RTUPB IV SCH (09:44)
--- NOTE | 2016-11-03 10:16 | PDOC PROGRESS REPORT ---
Subjective Progress Note for:: 11/03/16 Subjective:: awake anxious Physical Exam Vital Signs: Temp Pulse Resp BP Pulse Ox 98.0 F 92 18 169/98 H 98 11/02/16 21:37 11/03/16 08:28 11/03/16 08:28 11/03/16 05:54 11/03/16 08:28 Intake & Output 11/02/16 11/03/16 11/04/16 06:59 06:59 06:59 Intake Total 1357 610 Output Total 1115 1275 Balance 242 -1935 Weight 60.4 kg General appearance: PRESENT: no acute distress, cooperative, disheveled, thin, well-developed Head exam: PRESENT: atraumatic, normocephalic Eye exam: PRESENT: conjunctiva pale, EOMI Mouth exam: PRESENT: moist, neck supple, tongue midline Neck exam: PRESENT: carotid bruit Respiratory exam: PRESENT: decreased breath sounds, prolonged expiratory phas, rhonchi - coarse, symmetrical, unlabored Cardiovascular exam: PRESENT: irregular rhythm Pulses: PRESENT: normal radial pulses GI/Abdominal exam: PRESENT: normal bowel sounds, soft. ABSENT: distended, guarding, mass, organolmegaly, rebound, tenderness Rectal exam: PRESENT: deferred Gentrourinary exam: PRESENT: indwelling catheter Musculoskeletal exam: PRESENT: normal inspection Neurological exam: PRESENT: alert, awake Psychiatric exam: PRESENT: anxious Skin exam: PRESENT: dry, warm Results Laboratory Results: 11/02/16 06:00 11/02/16 06:00 11/02/16 11/02/16 11/02/16 11:30 12:16 14:00 Carbonic Acid 1.08 HCO3/H2CO3 Ratio 24:1 ABG pH 7.48 H ABG pCO2 36.0 ABG pO2 95.1 ABG HCO3 26.1 H ABG O2 Saturation 97.7 ABG Base Excess 2.6 FiO2 28% Urine Color YELLOW Urine Appearance CLEAR Urine pH 5.0 Ur Specific [place] 1.010 Urine Protein NEGATIVE Urine Glucose (UA) NEGATIVE Urine Ketones TRACE H Urine Blood NEGATIVE Urine Nitrite NEGATIVE Ur Leukocyte Esterase NEGATIVE Urine WBC (Auto) 1 Urine RBC (Auto) 3 Stool Occult Blood POSITIVE 10/31/16 13:15 Tracheal Aspirate Gram Stain - Final 10/31/16 13:15 Tracheal Aspirate Sputum Culture - Final C.albicans/C.dubliniensis Normal Rosa Absent 10/29/16 10/30/16 10/30/16 19:25 01:04 07:00 CK-MB (CK-2) 9.73 H 5.86 H 3.83 Troponin I < 0.012 < 0.012 < 0.012 Impressions: Chest X-Ray 11/02/16 06:00 IMPRESSION: Streaky opacity -effusion of the right lower lobe predominantly. Interval improvement. Lines and tubes. Assessment & Plan - Diagnosis (1) Acute and chronic respiratory failure with hypercapnia Is this a current diagnosis for this admission?: YesPlan: 24h s/p extubation stable, boderline SAO2 (2) COPD (chronic obstructive pulmonary disease) Qualifiers: COPD type: unspecified COPD Qualified Code(s): J44.9 - Chronic obstructive pulmonary disease, unspecified Is this a current diagnosis for this admission?: Yes (3) Pneumonia Qualifiers: Pneumonia type: due to unspecified organism Laterality: unspecified laterality Lung location: unspecified part of lung Qualified Code(s): J18.9 - Pneumonia, unspecified organism Is this a current diagnosis for this admission?: Yes - Time Critical Time spent with patient: 35 or more minutes
[2016-11-03] MEDS: OXYCODONE HCL IR 5 MG TABLET NG PRN (10:35)
[2016-11-03 13:48] LABS: ABSOLUTE BASOPHILS # (AUTO) 0.1 10^3/uL (0.0-0.2); ABSOLUTE EOSINOPHILS # (AUTO) 0.3 10^3/uL (0.0-0.6); ABSOLUTE LYMPHOCYTES (AUTO) 1.5 10^3/uL (0.5-4.7); ABSOLUTE MONOCYTES (AUTO) 0.9 10^3/uL (0.1-1.4); ABSOLUTE NEUT (AUTO) 7.9 10^3/uL (1.7-8.2); BASOPHILS % (AUTO) 0.6 % (0-2); EOSINOPHILS % (AUTO) 2.9 % (0-6); HEMATOCRIT 23.8 % (36.0-47.0); HGB HCT DIFFERENCE -0.7; LYMPHOCYTES % (AUTO) 14.1 % (13-45); MEAN CORPUSCULAR HEMOGLOBIN 29.6 pg (27.0-33.4); MEAN CORPUSCULAR HGB CONC 32.4 g/dL (32.0-36.0); MEAN CORPUSCULAR VOLUME 91 fl (80-97); MONOCYTES % (AUTO) 8.7 % (3-13); RED BLOOD COUNT 2.61 10^6/uL (3.72-5.28); RED CELL DISTRIBUTION WIDTH 15.1 % (11.5-14.0); SEGMENTED NEUTROPHILS % (AUTO) 73.7 % (42-78); WHITE BLOOD COUNT 10.7 10^3/uL (4.0-10.5)
[2016-11-03 13:50] LABS: ARTERIAL BLOOD BASE EXCESS -0.4 mmol/L; ARTERIAL BLOOD O2 SATURATION 96.8 % (94-98)
[2016-11-03 14:12] LABS: ANION GAP 7 (5-19); BLOOD UREA NITROGEN 10 mg/dL (7-20); CALCIUM 7.5 mg/dL (8.4-10.2); CARBON DIOXIDE 24 mmol/L (22-30); CHLORIDE 108 mmol/L (98-107); GLUCOSE 165 mg/dL (75-110); MAGNESIUM 1.6 mg/dL (1.6-2.3); POTASSIUM 3.4 mmol/L (3.6-5.0); SODIUM 139.4 mmol/L (137-145)
[2016-11-03 14:17] LABS: HEMOGLOBIN 7.7 g/dL (12.0-15.5)
[2016-11-03] MEDS ORDERED: NORMAL SALINE 250 ML IV PRN (14:24)
--- NOTE | 2016-11-03 14:29 | PDOC PROGRESS REPORT ---
Subjective Progress Note for:: 11/03/16 Subjective:: Patient was seen by the bedside, she is awake alert and oriented, she will be downgraded to IMCU floor. The hemogram revealed hemoglobin was 7 probably dilutional, there is no evidence of active bleeding. She be transfused with 2 units of blood Physical Exam Vital Signs: Temp Pulse Resp BP Pulse Ox 97.7 F 86 27 H 88/66 L 100 11/03/16 11:58 11/03/16 13:36 11/03/16 14:00 11/03/16 13:54 11/03/16 14:00 Intake & Output 11/02/16 11/03/16 11/04/16 06:59 06:59 06:59 Intake Total 1357 610 240 Output Total 1115 2545 45 Balance 242 -1935 195 Weight 60.4 kg General appearance: PRESENT: no acute distress Eye exam: PRESENT: PERRLA Respiratory exam: PRESENT: clear to auscultation melanie Cardiovascular exam: PRESENT: +S1, +S2 GI/Abdominal exam: PRESENT: soft Neurological exam: PRESENT: alert Results Laboratory Results: 11/03/16 13:30 11/03/16 13:30 11/02/16 11/03/16 11/03/16 14:00 13:30 13:30 WBC RBC Hgb Hct MCV MCH MCHC RDW Plt Count Seg Neutrophils % Lymphocytes % Monocytes % Eosinophils % Basophils % Absolute Neutrophils Absolute Lymphocytes Absolute Monocytes Absolute Eosinophils Absolute Basophils Carbonic Acid 1.37 H HCO3/H2CO3 Ratio 18:1 ABG pH 7.36 ABG pCO2 45.6 H ABG pO2 92.7 ABG HCO3 25.2 ABG O2 Saturation 96.8 ABG Base Excess -0.4 FiO2 2L Sodium 139.4 Potassium 3.4 L Chloride 108 H Carbon Dioxide 24 Anion Gap 7 BUN 10 Creatinine 0.60 Est GFR ( Amer) > 60 Est GFR (Non-Af Amer) > 60 Glucose 165 H Calcium 7.5 L Magnesium 1.6 Urine Color YELLOW Urine Appearance CLEAR Urine pH 5.0 Ur Specific [place] 1.010 Urine Protein NEGATIVE Urine Glucose (UA) NEGATIVE Urine Ketones TRACE H Urine Blood NEGATIVE Urine Nitrite NEGATIVE Ur Leukocyte Esterase NEGATIVE Urine WBC (Auto) 1 Urine RBC (Auto) 3 11/03/16 13:30 WBC 10.7 H RBC 2.61 L Hgb 7.7 L Hct 23.8 L MCV 91 MCH 29.6 MCHC 32.4 RDW 15.1 H Plt Count 223 Seg Neutrophils % 73.7 Lymphocytes % 14.1 Monocytes % 8.7 Eosinophils % 2.9 Basophils % 0.6 Absolute Neutrophils 7.9 Absolute Lymphocytes 1.5 Absolute Monocytes 0.9 Absolute Eosinophils 0.3 Absolute Basophils 0.1 Carbonic Acid HCO3/H2CO3 Ratio ABG pH ABG pCO2 ABG pO2 ABG HCO3 ABG O2 Saturation ABG Base Excess FiO2 Sodium Potassium Chloride Carbon Dioxide Anion Gap BUN Creatinine Est GFR ( Amer) Est GFR (Non-Af Amer) Glucose Calcium Magnesium Urine Color Urine Appearance Urine pH Ur Specific [place] Urine Protein Urine Glucose (UA) Urine Ketones Urine Blood Urine Nitrite Ur Leukocyte Esterase Urine WBC (Auto) Urine RBC (Auto) 10/31/16 13:15 Tracheal Aspirate Gram Stain - Final 10/31/16 13:15 Tracheal Aspirate Sputum Culture - Final C.albicans/C.dubliniensis Normal Rosa Absent 10/29/16 10/30/16 10/30/16 19:25 01:04 07:00 CK-MB (CK-2) 9.73 H 5.86 H 3.83 Troponin I < 0.012 < 0.012 < 0.012 Impressions: Chest X-Ray 11/02/16 06:00 IMPRESSION: Streaky opacity -effusion of the right lower lobe predominantly. Interval improvement. Lines and tubes. Assessment & Plan - Diagnosis (1) Acute hypoxemic respiratory failure Is this a current diagnosis for this admission?: Yes (2) Pneumonia Qualifiers: Pneumonia type: due to unspecified organism Laterality: right Lung location: lower lobe of lung Qualified Code(s): J18.1 - Lobar pneumonia, unspecified organism Is this a current diagnosis for this admission?: Yes (3) COPD (chronic obstructive pulmonary disease) Is this a current diagnosis for this admission?: Yes (4) Acute and chronic respiratory failure with hypercapnia Is this a current diagnosis for this admission?: Yes (5) COPD (chronic obstructive pulmonary disease) Qualifiers: COPD type: unspecified COPD Qualified Code(s): J44.9 - Chronic obstructive pulmonary disease, unspecified Is this a current diagnosis for this admission?: Yes (6) Hypoxia Is this a current diagnosis for this admission?: Yes (7) Pneumonia Qualifiers: Pneumonia type: due to unspecified organism Laterality: unspecified laterality Lung location: unspecified part of lung Qualified Code(s): J18.9 - Pneumonia, unspecified organism Is this a current diagnosis for this admission?: Yes (8) Anemia Qualifiers: Anemia type: unspecified type Qualified Code(s): D64.9 - Anemia, unspecified Is this a current diagnosis for this admission?: YesPlan: This is most likely dilutional anemia, she be transfused with 2 units of packed red blood cells
[2016-11-03] MEDS ORDERED: OXYCODONE HCL SR 40 MG TABLET PO ONE (15:30)
[2016-11-03] MEDS ORDERED: (PENDING PHARMACY ID) (Quetiapine Fumarate [Seroquel Xr] 200 MG) PO SCH ×2 (16:00→18:00)
[2016-11-03] MEDS ORDERED: IRON POLYSACCHARIDES COMPLEX 150 MG CAPSULE PO ONE (16:30)
[2016-11-03] MEDS ORDERED: TIOTROPIUM BROMIDE DPI 5 CAP/KIT (18 MCG/CAP) IH ONE (16:30)
[2016-11-03] MEDS ORDERED: QUETIAPINE FUMARATE 100 MG TABLET PO SCH (18:00)
[2016-11-03] MEDS ORDERED: BUPROPION HCL 100 MG TABLET PO SCH (18:00)
[2016-11-03] MEDS ORDERED: (PENDING PHARMACY ID) (Bupropion Hcl [Wellbutrin Xl 150 Mg 24hr Tablet] 150 MG) PO SCH (18:00)
[2016-11-03] MEDS: BUPROPION HCL 75 MG TABLET PO SCH (18:08)
[2016-11-03] MEDS: NORMAL SALINE 250 ML IV PRN ×2 (20:10→21:03)
[2016-11-03] MEDS ORDERED: QUETIAPINE FUMARATE 100 MG TABLET PO ONE (21:15)
[2016-11-03] MEDS: OXYCODONE HCL SR 40 MG TABLET PO SCH (21:25)
[2016-11-04] MEDS: OXYCODONE HCL IR 5 MG TABLET NG PRN ×2 (04:09→10:25)
[2016-11-04] MEDS: IPRATROPIUM/ALBUTEROL 0.5-2.5 MG/3 ML AMPUL NEB SCH ×4 (04:17→20:46)
[2016-11-04 04:49] LABS: ABSOLUTE BASOPHILS # (AUTO) 0.1 10^3/uL (0.0-0.2); ABSOLUTE EOSINOPHILS # (AUTO) 0.6 10^3/uL (0.0-0.6); ABSOLUTE LYMPHOCYTES (AUTO) 2.3 10^3/uL (0.5-4.7); ABSOLUTE MONOCYTES (AUTO) 1.2 10^3/uL (0.1-1.4); ABSOLUTE NEUT (AUTO) 8.7 10^3/uL (1.7-8.2); BASOPHILS % (AUTO) 0.4 % (0-2); EOSINOPHILS % (AUTO) 4.9 % (0-6); HEMATOCRIT 34.8 % (36.0-47.0); HGB HCT DIFFERENCE -0.9; LYMPHOCYTES % (AUTO) 18.1 % (13-45); MEAN CORPUSCULAR HEMOGLOBIN 29.5 pg (27.0-33.4); MEAN CORPUSCULAR HGB CONC 32.6 g/dL (32.0-36.0); MEAN CORPUSCULAR VOLUME 91 fl (80-97); MONOCYTES % (AUTO) 9.2 % (3-13); RED BLOOD COUNT 3.84 10^6/uL (3.72-5.28); RED CELL DISTRIBUTION WIDTH 14.7 % (11.5-14.0); SEGMENTED NEUTROPHILS % (AUTO) 67.4 % (42-78); WHITE BLOOD COUNT 12.9 10^3/uL (4.0-10.5)
[2016-11-04 04:50] LABS: HEMOGLOBIN 11.3 g/dL (12.0-15.5)
[2016-11-04 05:00] LABS: ALANINE AMINOTRANSFERASE 34 U/L (9-52); ALBUMIN 2.6 g/dL (3.5-5.0); ALKALINE PHOSPHATASE 51 U/L (38-126); ANION GAP 8 (5-19); ASPARTATE AMINO TRANSFERASE 13 U/L (14-36); BILIRUBIN,DIRECT 0.3 mg/dL (0.0-0.4); BILIRUBIN,TOTAL 0.9 mg/dL (0.2-1.3); BLOOD UREA NITROGEN 9 mg/dL (7-20); CALCIUM 8.5 mg/dL (8.4-10.2); CARBON DIOXIDE 26 mmol/L (22-30); CHLORIDE 109 mmol/L (98-107); CREATININE RESULT 0.67 mg/dL (0.52-1.25); GLUCOSE 89 mg/dL (75-110); MAGNESIUM 1.7 mg/dL (1.6-2.3); PHOSPHORUS 4.4 mg/dL (2.5-4.5); POTASSIUM 3.6 mmol/L (3.6-5.0); SODIUM 142.9 mmol/L (137-145); TOTAL PROTEIN 5.1 g/dL (6.3-8.2)
[2016-11-04] MEDS: BUPROPION HCL 75 MG TABLET PO SCH ×2 (06:04→18:37)
[2016-11-04] MEDS: OXYCODONE HCL SR 40 MG TABLET PO SCH ×3 (06:04→21:13)
--- NOTE | 2016-11-04 07:36 | RADIOLOGY REPORT (SQ) ---
EXAM DESCRIPTION: CHEST SINGLE VIEW COMPLETED DATE/TIME: 11/04/2016 7:16 am REASON FOR STUDY: COPD COMPARISON: 11/02/2016 and 11/01/2016. EXAM PARAMETERS: NUMBER OF VIEWS: One view. TECHNIQUE: Single frontal radiographic view of the chest acquired. RADIATION DOSE: NA LIMITATIONS: None. FINDINGS: LUNGS AND PLEURA: Right lower lobe airspace disease may be slightly worse. Left lung rela tively clear. No pleural effusion. No pneumothorax. Possible granuloma in the right upper lobe. MEDIASTINUM AND HILAR STRUCTURES: No masses. Contour normal. HEART AND VASCULAR STRUCTURES: Heart normal in size. Normal vasculature. BONES: No acute findings. HARDWARE: Vascular access port. OTHER: No other significant finding. IMPRESSION: RIGHT LOWER LOBE INFILTRATE APPEARS TO BE SLIGHTLY WORSE. TECHNICAL DOCUMENTATION: JOB ID: [id number]
[2016-11-04] MEDS: ROFLUMILAST 500 MCG TABLET NG SCH (09:16)
[2016-11-04] MEDS: ASPIRIN 81 MG TABLET, CHEWABLE NG SCH (09:16)
[2016-11-04] MEDS: LEVOFLOXACIN 750 MG/D5W RTU 750 MG/150 ML RTUPB IV SCH (09:16)
[2016-11-04] MEDS: ENOXAPARIN SODIUM INJ 40 MG/0.4 ML DISP.SYRIN SUBCUT SCH ×2 (09:17→21:14)
[2016-11-04] MEDS: VALSARTAN 80 MG TABLET NG SCH (09:17)
[2016-11-04] MEDS: IRON POLYSACCHARIDES COMPLEX 150 MG CAPSULE PO SCH (09:18)
[2016-11-04] MEDS: FAMOTIDINE INJ/PF 20 MG/2 ML SDV IV SCH ×2 (09:18→21:14)
[2016-11-04] MEDS: CEFEPIME HCL 2 GM in DEXTROSE 5%-WATER 50 ML IV SCH ×2 (09:18→21:13)
[2016-11-04] MEDS ORDERED: TIOTROPIUM BROMIDE DPI 5 CAP/KIT (18 MCG/CAP) IH SCH (10:00)
[2016-11-04] MEDS: OXYCODONE-ACETAMINOPHEN 5-325 MG TABLET NG PRN ×2 (10:26→19:54)
[2016-11-04] MEDS: LORAZEPAM 0.5 MG TABLET PO SCH ×2 (13:10→21:14)
--- NOTE | 2016-11-04 14:31 | PDOC PROGRESS REPORT ---
Subjective Progress Note for:: 11/04/16 Subjective:: She was seen by the bedside, she has a sinus tachycardia, the potential etiology is long Physical Exam Vital Signs: Temp Pulse Resp BP Pulse Ox 98.6 F 94 21 H 128/79 H 86 L 11/04/16 08:31 11/04/16 08:31 11/04/16 14:00 11/04/16 13:29 11/04/16 13:29 Intake & Output 11/03/16 11/04/16 11/05/16 06:59 06:59 06:59 Intake Total 610 2108 237 Output Total 2545 970 400 Balance -1935 1138 -163 Weight 64.3 kg General appearance: PRESENT: no acute distress Eye exam: PRESENT: PERRLA Neck exam: PRESENT: other Respiratory exam: PRESENT: clear to auscultation melanie Cardiovascular exam: PRESENT: +S1, +S2 GI/Abdominal exam: PRESENT: soft Neurological exam: PRESENT: alert, CN II-XII grossly intact Results Laboratory Results: 11/04/16 04:35 11/04/16 04:35 11/03/16 11/04/16 11/04/16 14:34 04:35 04:35 WBC 12.9 H RBC 3.84 Hgb 11.3 L D Hct 34.8 L MCV 91 MCH 29.5 MCHC 32.6 RDW 14.7 H Plt Count 241 Seg Neutrophils % 67.4 Lymphocytes % 18.1 Monocytes % 9.2 Eosinophils % 4.9 Basophils % 0.4 Absolute Neutrophils 8.7 H Absolute Lymphocytes 2.3 Absolute Monocytes 1.2 Absolute Eosinophils 0.6 Absolute Basophils 0.1 Sodium 142.9 Potassium 3.6 Chloride 109 H Carbon Dioxide 26 Anion Gap 8 BUN 9 Creatinine 0.67 Est GFR ( Amer) > 60 Est GFR (Non-Af Amer) > 60 Glucose 89 Calcium 8.5 Phosphorus 4.4 Magnesium 1.7 Total Bilirubin 0.9 AST 13 L ALT 34 Alkaline Phosphatase 51 Total Protein 5.1 L Albumin 2.6 L Blood Type A POSITIVE Antibody Screen NEGATIVE 10/29/16 10/30/16 10/30/16 19:25 01:04 07:00 CK-MB (CK-2) 9.73 H 5.86 H 3.83 Troponin I < 0.012 < 0.012 < 0.012 Impressions: Chest X-Ray 11/04/16 06:00 IMPRESSION: RIGHT LOWER LOBE INFILTRATE APPEARS TO BE SLIGHTLY WORSE. Assessment & Plan - Diagnosis (1) Acute hypoxemic respiratory failure Is this a current diagnosis for this admission?: Yes (2) Pneumonia Qualifiers: Pneumonia type: due to unspecified organism Laterality: right Lung location: lower lobe of lung Qualified Code(s): J18.1 - Lobar pneumonia, unspecified organism Is this a current diagnosis for this admission?: YesPlan: She will continue IV antibiotic (3) COPD (chronic obstructive pulmonary disease) Is this a current diagnosis for this admission?: Yes (4) Acute and chronic respiratory failure with hypercapnia Is this a current diagnosis for this admission?: Yes (5) COPD (chronic obstructive pulmonary disease) Qualifiers: COPD type: unspecified COPD Qualified Code(s): J44.9 - Chronic obstructive pulmonary disease, unspecified Is this a current diagnosis for this admission?: Yes (6) Hypoxia Is this a current diagnosis for this admission?: Yes (7) Pneumonia Qualifiers: Pneumonia type: due to unspecified organism Laterality: unspecified laterality Lung location: unspecified part of lung Qualified Code(s): J18.9 - Pneumonia, unspecified organism Is this a current diagnosis for this admission?: Yes (8) Anemia Qualifiers: Anemia type: unspecified type Qualified Code(s): D64.9 - Anemia, unspecified Is this a current diagnosis for this admission?: YesPlan: She is status post blood transfusion ,hemoglobin is 11
[2016-11-04] MEDS: SEROQUEL 200 MG PO SCH (16:50)
[2016-11-04] MEDS: GUAIFENESIN 600 MG TABLET.SA PO SCH (16:51)
[2016-11-05] MEDS: IPRATROPIUM/ALBUTEROL 0.5-2.5 MG/3 ML AMPUL NEB SCH ×4 (02:18→20:18)
[2016-11-05] MEDS: LORAZEPAM 0.5 MG TABLET PO SCH ×3 (05:07→21:55)
[2016-11-05] MEDS: OXYCODONE HCL SR 40 MG TABLET PO SCH ×3 (05:07→21:52)
[2016-11-05] MEDS: BUPROPION HCL 75 MG TABLET PO SCH ×2 (05:07→17:27)
[2016-11-05 05:25] LABS: ABSOLUTE BASOPHILS # (AUTO) 0.1 10^3/uL (0.0-0.2); ABSOLUTE EOSINOPHILS # (AUTO) 0.6 10^3/uL (0.0-0.6); ABSOLUTE LYMPHOCYTES (AUTO) 1.6 10^3/uL (0.5-4.7); ABSOLUTE MONOCYTES (AUTO) 1.3 10^3/uL (0.1-1.4); ABSOLUTE NEUT (AUTO) 11.3 10^3/uL (1.7-8.2); BASOPHILS % (AUTO) 0.5 % (0-2); EOSINOPHILS % (AUTO) 3.8 % (0-6); HEMATOCRIT 33.9 % (36.0-47.0); HGB HCT DIFFERENCE -0.9; LYMPHOCYTES % (AUTO) 10.8 % (13-45); MEAN CORPUSCULAR HEMOGLOBIN 29.4 pg (27.0-33.4); MEAN CORPUSCULAR HGB CONC 32.3 g/dL (32.0-36.0); MEAN CORPUSCULAR VOLUME 91 fl (80-97); MONOCYTES % (AUTO) 8.8 % (3-13); RED BLOOD COUNT 3.73 10^6/uL (3.72-5.28); RED CELL DISTRIBUTION WIDTH 14.9 % (11.5-14.0); SEGMENTED NEUTROPHILS % (AUTO) 76.1 % (42-78); WHITE BLOOD COUNT 14.9 10^3/uL (4.0-10.5)
[2016-11-05 05:38] LABS: ANION GAP 7 (5-19); BLOOD UREA NITROGEN 10 mg/dL (7-20); CALCIUM 8.7 mg/dL (8.4-10.2); CARBON DIOXIDE 28 mmol/L (22-30); CHLORIDE 106 mmol/L (98-107); CREATININE RESULT 0.65 mg/dL (0.52-1.25); GLUCOSE 89 mg/dL (75-110); MAGNESIUM 1.5 mg/dL (1.6-2.3); POTASSIUM 3.8 mmol/L (3.6-5.0); SODIUM 141.3 mmol/L (137-145)
[2016-11-05 05:48] LABS: APPEARANCE,URINE CLEAR; BILIRUBIN,URINE NEGATIVE (NEGATIVE); GLUCOSE, URINE NEGATIVE (NEGATIVE); KETONES,URINE NEGATIVE (NEGATIVE); LEUKOCYTE ESTERASE,URINE NEGATIVE (NEGATIVE); NITRITE,URINE NEGATIVE (NEGATIVE); PROTEIN,URINE NEGATIVE (NEGATIVE); URINE SPECIFIC GRAVITY 1.009; UROBILINOGEN,URINE NEGATIVE mg/dL (<2.0)
--- NOTE | 2016-11-05 07:29 | RADIOLOGY REPORT (SQ) ---
EXAM DESCRIPTION: CHEST SINGLE VIEW COMPLETED DATE/TIME: 11/05/2016 7:06 am REASON FOR STUDY: pna COMPARISON: 11/04/2016 EXAM PARAMETERS: NUMBER OF VIEWS: One view. TECHNIQUE: Single frontal radiographic view of the chest acquired. RADIATION DOSE: NA LIMITATIONS: None. FINDINGS: LUNGS AND PLEURA: Small-moderate bibasilar effusion and mixed interstitial and airspace op acity. MEDIASTINUM AND HILAR STRUCTURES: No masses. Contour normal. HEART AND VASCULAR STRUCTURES: Heart normal in size. Normal vasculature. BONES: No acute findings. HARDWARE: Left IJ central line tip above the cavoatrial junction OTHER: No other significant finding. IMPRESSION: No significant interval change. TECHNICAL DOCUMENTATION: JOB ID: [id number]
[2016-11-05] MEDS: MAGNESIUM SULFATE/D5W 100 ML IV SCH ×2 (09:21→11:18)
[2016-11-05] MEDS: ENOXAPARIN SODIUM INJ 40 MG/0.4 ML DISP.SYRIN SUBCUT SCH (09:21)
[2016-11-05] MEDS: CEFEPIME HCL 2 GM in DEXTROSE 5%-WATER 50 ML IV SCH ×2 (09:22→22:28)
[2016-11-05] MEDS: LEVOFLOXACIN 750 MG/D5W RTU 750 MG/150 ML RTUPB IV SCH (09:22)
[2016-11-05] MEDS: IRON POLYSACCHARIDES COMPLEX 150 MG CAPSULE PO SCH (09:22)
[2016-11-05] MEDS: ROFLUMILAST 500 MCG TABLET NG SCH (09:22)
[2016-11-05] MEDS: VALSARTAN 80 MG TABLET NG SCH (09:23)
[2016-11-05] MEDS: FAMOTIDINE INJ/PF 20 MG/2 ML SDV IV SCH ×2 (09:23→21:51)
[2016-11-05] MEDS: ASPIRIN 81 MG TABLET, CHEWABLE NG SCH (09:25)
[2016-11-05] MEDS: GUAIFENESIN 600 MG TABLET.SA PO SCH ×2 (09:25→17:27)
[2016-11-05] MEDS: OXYCODONE HCL IR 5 MG TABLET NG PRN (16:20)
[2016-11-05] MEDS: OXYCODONE-ACETAMINOPHEN 5-325 MG TABLET NG PRN (16:21)
[2016-11-05] MEDS: SEROQUEL 200 MG PO SCH (17:27)
--- NOTE | 2016-11-05 19:53 | PDOC PROGRESS REPORT ---
Subjective Progress Note for:: 11/05/16 Subjective:: She was seen by the bedside. There is no new complaints Physical Exam Vital Signs: Temp Pulse Resp BP Pulse Ox 97.7 F 117 H 16 123/60 100 11/05/16 19:40 11/05/16 19:46 11/05/16 19:40 11/05/16 19:40 11/05/16 19:35 Intake & Output 11/04/16 11/05/16 11/06/16 06:59 06:59 06:59 Intake Total 2108 537 1480 Output Total 970 1850 2200 Balance 7359 -3360 -234 Weight 64.3 kg 65.3 kg General appearance: PRESENT: no acute distress Eye exam: PRESENT: PERRLA Respiratory exam: PRESENT: clear to auscultation melanie Cardiovascular exam: PRESENT: +S1, +S2 GI/Abdominal exam: PRESENT: soft Neurological exam: PRESENT: alert, CN II-XII grossly intact Results Laboratory Results: 11/05/16 04:41 11/05/16 04:41 11/05/16 11/05/16 11/05/16 04:41 04:41 04:41 WBC 14.9 H RBC 3.73 Hgb 11.0 L Hct 33.9 L MCV 91 MCH 29.4 MCHC 32.3 RDW 14.9 H Plt Count 252 Seg Neutrophils % 76.1 Lymphocytes % 10.8 L Monocytes % 8.8 Eosinophils % 3.8 Basophils % 0.5 Absolute Neutrophils 11.3 H Absolute Lymphocytes 1.6 Absolute Monocytes 1.3 Absolute Eosinophils 0.6 Absolute Basophils 0.1 Sodium 141.3 Potassium 3.8 Chloride 106 Carbon Dioxide 28 Anion Gap 7 BUN 10 Creatinine 0.65 Est GFR ( Amer) > 60 Est GFR (Non-Af Amer) > 60 Glucose 89 Calcium 8.7 Magnesium 1.5 L Urine Color YELLOW Urine Appearance CLEAR Urine pH 6.0 Ur Specific [place] 1.009 Urine Protein NEGATIVE Urine Glucose (UA) NEGATIVE Urine Ketones NEGATIVE Urine Blood NEGATIVE Urine Nitrite NEGATIVE Ur Leukocyte Esterase NEGATIVE Urine WBC (Auto) 4 Urine RBC (Auto) 1 10/29/16 10/30/16 10/30/16 19:25 01:04 07:00 CK-MB (CK-2) 9.73 H 5.86 H 3.83 Troponin I < 0.012 < 0.012 < 0.012 Impressions: Chest X-Ray 11/05/16 06:00 IMPRESSION: No significant interval change. Assessment & Plan - Diagnosis (1) Acute hypoxemic respiratory failure Is this a current diagnosis for this admission?: Yes (2) Pneumonia Qualifiers: Pneumonia type: due to unspecified organism Laterality: right Lung location: lower lobe of lung Qualified Code(s): J18.1 - Lobar pneumonia, unspecified organism Is this a current diagnosis for this admission?: Yes (3) COPD (chronic obstructive pulmonary disease) Is this a current diagnosis for this admission?: Yes (4) Acute and chronic respiratory failure with hypercapnia Is this a current diagnosis for this admission?: Yes (5) COPD (chronic obstructive pulmonary disease) Qualifiers: COPD type: unspecified COPD Qualified Code(s): J44.9 - Chronic obstructive pulmonary disease, unspecified Is this a current diagnosis for this admission?: Yes (6) Hypoxia Is this a current diagnosis for this admission?: Yes (7) Pneumonia Qualifiers: Pneumonia type: due to unspecified organism Laterality: unspecified laterality Lung location: unspecified part of lung Qualified Code(s): J18.9 - Pneumonia, unspecified organism Is this a current diagnosis for this admission?: Yes (8) Anemia Qualifiers: Anemia type: unspecified type Qualified Code(s): D64.9 - Anemia, unspecified Is this a current diagnosis for this admission?: Yes
[2016-11-05] MEDS ORDERED: CEFEPIME INJ 2 GM VIAL ONE (22:19)
[2016-11-06] MEDS: IPRATROPIUM/ALBUTEROL 0.5-2.5 MG/3 ML AMPUL NEB SCH ×4 (02:11→20:42)
[2016-11-06] MEDS: BUPROPION HCL 75 MG TABLET PO SCH ×2 (05:59→17:48)
[2016-11-06] MEDS: OXYCODONE HCL SR 40 MG TABLET PO SCH ×3 (05:59→22:58)
[2016-11-06] MEDS: LORAZEPAM 0.5 MG TABLET PO SCH ×3 (05:59→22:58)
[2016-11-06] MEDS: ENOXAPARIN SODIUM INJ 40 MG/0.4 ML DISP.SYRIN SUBCUT SCH (09:39)
[2016-11-06] MEDS: LEVOFLOXACIN 750 MG/D5W RTU 750 MG/150 ML RTUPB IV SCH (09:40)
[2016-11-06] MEDS: FAMOTIDINE INJ/PF 20 MG/2 ML SDV IV SCH ×2 (09:40→22:59)
[2016-11-06] MEDS: ASPIRIN 81 MG TABLET, CHEWABLE NG SCH (09:41)
[2016-11-06] MEDS: GUAIFENESIN 600 MG TABLET.SA PO SCH ×2 (09:41→17:46)
[2016-11-06] MEDS: VALSARTAN 80 MG TABLET NG SCH (09:41)
[2016-11-06] MEDS: IRON POLYSACCHARIDES COMPLEX 150 MG CAPSULE PO SCH (09:53)
[2016-11-06] MEDS: ROFLUMILAST 500 MCG TABLET NG SCH (09:53)
[2016-11-06 10:11] LABS: ARTERIAL BLOOD BASE EXCESS 1.3 mmol/L; ARTERIAL BLOOD O2 SATURATION 96.1 % (94-98)
[2016-11-06] MEDS ORDERED: CEFEPIME 2 GM/D5W RTU 2 GM/50 ML RTUPB IV ONE (10:30)
[2016-11-06] MEDS ORDERED: CEFEPIME HCL 2 GM in DEXTROSE 5%-WATER 50 ML IV ONE (11:00)
--- NOTE | 2016-11-06 12:10 | PDOC PROGRESS REPORT ---
Subjective Progress Note for:: 11/06/16 Subjective:: awake Physical Exam Vital Signs: Temp Pulse Resp BP Pulse Ox 97.5 F 130 H 17 99/55 L 98 11/06/16 04:00 11/06/16 07:54 11/06/16 07:54 11/06/16 04:00 11/06/16 07:54 Intake & Output 11/05/16 11/06/16 11/07/16 06:59 06:59 06:59 Intake Total 537 1930 Output Total 1850 3200 Balance -1313 -1270 Weight 65.3 kg 61 kg General appearance: PRESENT: no acute distress, cooperative, disheveled, thin, well-developed Head exam: PRESENT: atraumatic, normocephalic Eye exam: PRESENT: conjunctiva pale, EOMI Mouth exam: PRESENT: moist, neck supple Teeth exam: PRESENT: poor dentation Neck exam: ABSENT: carotid bruit, JVD, lymphadenopathy, thyromegaly Respiratory exam: PRESENT: decreased breath sounds - Especially bibasilar right greater than left, prolonged expiratory phas, unlabored Cardiovascular exam: PRESENT: RRR, +S1, +S2 Pulses: PRESENT: normal radial pulses GI/Abdominal exam: PRESENT: normal bowel sounds, soft. ABSENT: distended, guarding, mass, organolmegaly, rebound, tenderness Rectal exam: PRESENT: deferred Gentrourinary exam: PRESENT: indwelling catheter Musculoskeletal exam: PRESENT: normal inspection Neurological exam: PRESENT: awake Skin exam: PRESENT: dry, warm Results Laboratory Results: 11/05/16 04:41 11/05/16 04:41 10/29/16 10/30/16 10/30/16 19:25 01:04 07:00 CK-MB (CK-2) 9.73 H 5.86 H 3.83 Troponin I < 0.012 < 0.012 < 0.012 Impressions: Chest X-Ray 11/05/16 06:00 IMPRESSION: No significant interval change. Assessment & Plan - Diagnosis (1) Acute and chronic respiratory failure with hypercapnia Is this a current diagnosis for this admission?: YesPlan: Clinically more alert today unfortunately breath sounds at both bases remain diminished (2) COPD (chronic obstructive pulmonary disease) Qualifiers: COPD type: unspecified COPD Qualified Code(s): J44.9 - Chronic obstructive pulmonary disease, unspecified Is this a current diagnosis for this admission?: Yes (3) Pneumonia Qualifiers: Pneumonia type: due to unspecified organism Laterality: unspecified laterality Lung location: unspecified part of lung Qualified Code(s): J18.9 - Pneumonia, unspecified organism Is this a current diagnosis for this admission?: YesPlan: Aggressive pulmonary physiotherapy - Time Critical Time spent with patient: 25-34 minutes
--- NOTE | 2016-11-06 12:13 | PDOC PROGRESS REPORT ---
Subjective Progress Note for:: 11/05/16 Subjective:: awake Physical Exam Vital Signs: Temp Pulse Resp BP Pulse Ox 98.2 F 128 H 16 156/68 H 97 11/05/16 05:12 11/05/16 05:12 11/05/16 05:12 11/05/16 05:12 11/05/16 06:00 Intake & Output 11/04/16 11/05/16 11/06/16 06:59 06:59 06:59 Intake Total 2108 537 Output Total 970 1850 Balance 1138 -1313 Weight 64.3 kg 65.3 kg General appearance: PRESENT: no acute distress, disheveled, thin, well-developed Head exam: PRESENT: atraumatic, normocephalic Eye exam: PRESENT: conjunctiva pale, EOMI Mouth exam: PRESENT: moist, neck supple, tongue midline Neck exam: ABSENT: carotid bruit, JVD, lymphadenopathy, thyromegaly Respiratory exam: PRESENT: decreased breath sounds - Bibasilar right greater than left, prolonged expiratory phas, rhonchi, unlabored Cardiovascular exam: PRESENT: RRR, +S1, +S2 Pulses: PRESENT: normal radial pulses GI/Abdominal exam: PRESENT: ascites Rectal exam: PRESENT: deferred Gentrourinary exam: PRESENT: indwelling catheter Musculoskeletal exam: PRESENT: normal inspection Neurological exam: PRESENT: awake Skin exam: PRESENT: dry, warm Results Laboratory Results: 11/05/16 04:41 11/05/16 04:41 11/05/16 11/05/16 11/05/16 04:41 04:41 04:41 WBC 14.9 H RBC 3.73 Hgb 11.0 L Hct 33.9 L MCV 91 MCH 29.4 MCHC 32.3 RDW 14.9 H Plt Count 252 Seg Neutrophils % 76.1 Lymphocytes % 10.8 L Monocytes % 8.8 Eosinophils % 3.8 Basophils % 0.5 Absolute Neutrophils 11.3 H Absolute Lymphocytes 1.6 Absolute Monocytes 1.3 Absolute Eosinophils 0.6 Absolute Basophils 0.1 Sodium 141.3 Potassium 3.8 Chloride 106 Carbon Dioxide 28 Anion Gap 7 BUN 10 Creatinine 0.65 Est GFR ( Amer) > 60 Est GFR (Non-Af Amer) > 60 Glucose 89 Calcium 8.7 Magnesium 1.5 L Urine Color YELLOW Urine Appearance CLEAR Urine pH 6.0 Ur Specific [place] 1.009 Urine Protein NEGATIVE Urine Glucose (UA) NEGATIVE Urine Ketones NEGATIVE Urine Blood NEGATIVE Urine Nitrite NEGATIVE Ur Leukocyte Esterase NEGATIVE Urine WBC (Auto) 4 Urine RBC (Auto) 1 10/29/16 10/30/16 10/30/16 19:25 01:04 07:00 CK-MB (CK-2) 9.73 H 5.86 H 3.83 Troponin I < 0.012 < 0.012 < 0.012 Impressions: Chest X-Ray 11/05/16 06:00 IMPRESSION: No significant interval change. Assessment & Plan - Diagnosis (1) Acute and chronic respiratory failure with hypercapnia Is this a current diagnosis for this admission?: YesPlan: Clinically more alert today Bibasilar breath sounds diminished (2) COPD (chronic obstructive pulmonary disease) Qualifiers: COPD type: unspecified COPD Qualified Code(s): J44.9 - Chronic obstructive pulmonary disease, unspecified Is this a current diagnosis for this admission?: Yes (3) Pneumonia Qualifiers: Pneumonia type: due to unspecified organism Laterality: unspecified laterality Lung location: unspecified part of lung Qualified Code(s): J18.9 - Pneumonia, unspecified organism Is this a current diagnosis for this admission?: Yes - Time Critical Time spent with patient: 25-34 minutes
--- NOTE | 2016-11-06 12:14 | PDOC PROGRESS REPORT ---
Subjective Progress Note for:: 11/04/16 Subjective:: Awake Physical Exam Vital Signs: Temp Pulse Resp BP Pulse Ox 98.3 F 93 20 133/62 H 96 11/04/16 04:00 11/04/16 07:33 11/04/16 04:00 11/04/16 04:07 11/04/16 04:00 Intake & Output 11/03/16 11/04/16 11/05/16 06:59 06:59 06:59 Intake Total 610 2108 Output Total 2545 970 Balance -1935 1138 Weight 64.3 kg General appearance: PRESENT: no acute distress, disheveled, well-developed Head exam: PRESENT: atraumatic, normocephalic Eye exam: PRESENT: conjunctiva pale, EOMI Mouth exam: PRESENT: moist, neck supple, tongue midline Teeth exam: PRESENT: poor dentation Neck exam: ABSENT: carotid bruit, JVD, lymphadenopathy, thyromegaly Respiratory exam: PRESENT: decreased breath sounds, prolonged expiratory phas, unlabored Cardiovascular exam: PRESENT: RRR, +S1, +S2 Pulses: PRESENT: normal radial pulses GI/Abdominal exam: PRESENT: normal bowel sounds, soft. ABSENT: distended, guarding, mass, organolmegaly, rebound, tenderness Rectal exam: PRESENT: deferred Gentrourinary exam: PRESENT: indwelling catheter Musculoskeletal exam: PRESENT: normal inspection Neurological exam: PRESENT: alert, awake Skin exam: PRESENT: dry, warm Results Laboratory Results: 11/04/16 04:35 11/04/16 04:35 11/03/16 11/03/16 11/03/16 13:30 13:30 13:30 WBC 10.7 H RBC 2.61 L Hgb 7.7 L Hct 23.8 L MCV 91 MCH 29.6 MCHC 32.4 RDW 15.1 H Plt Count 223 Seg Neutrophils % 73.7 Lymphocytes % 14.1 Monocytes % 8.7 Eosinophils % 2.9 Basophils % 0.6 Absolute Neutrophils 7.9 Absolute Lymphocytes 1.5 Absolute Monocytes 0.9 Absolute Eosinophils 0.3 Absolute Basophils 0.1 Carbonic Acid 1.37 H HCO3/H2CO3 Ratio 18:1 ABG pH 7.36 ABG pCO2 45.6 H ABG pO2 92.7 ABG HCO3 25.2 ABG O2 Saturation 96.8 ABG Base Excess -0.4 FiO2 2L Sodium 139.4 Potassium 3.4 L Chloride 108 H Carbon Dioxide 24 Anion Gap 7 BUN 10 Creatinine 0.60 Est GFR ( Amer) > 60 Est GFR (Non-Af Amer) > 60 Glucose 165 H Calcium 7.5 L Phosphorus Magnesium 1.6 Total Bilirubin AST ALT Alkaline Phosphatase Total Protein Albumin Blood Type Antibody Screen 11/03/16 11/04/16 11/04/16 14:34 04:35 04:35 WBC 12.9 H RBC 3.84 Hgb 11.3 L D Hct 34.8 L MCV 91 MCH 29.5 MCHC 32.6 RDW 14.7 H Plt Count 241 Seg Neutrophils % 67.4 Lymphocytes % 18.1 Monocytes % 9.2 Eosinophils % 4.9 Basophils % 0.4 Absolute Neutrophils 8.7 H Absolute Lymphocytes 2.3 Absolute Monocytes 1.2 Absolute Eosinophils 0.6 Absolute Basophils 0.1 Carbonic Acid HCO3/H2CO3 Ratio ABG pH ABG pCO2 ABG pO2 ABG HCO3 ABG O2 Saturation ABG Base Excess FiO2 Sodium 142.9 Potassium 3.6 Chloride 109 H Carbon Dioxide 26 Anion Gap 8 BUN 9 Creatinine 0.67 Est GFR ( Amer) > 60 Est GFR (Non-Af Amer) > 60 Glucose 89 Calcium 8.5 Phosphorus 4.4 Magnesium 1.7 Total Bilirubin 0.9 AST 13 L ALT 34 Alkaline Phosphatase 51 Total Protein 5.1 L Albumin 2.6 L Blood Type A POSITIVE Antibody Screen NEGATIVE 10/29/16 10/30/16 10/30/16 19:25 01:04 07:00 CK-MB (CK-2) 9.73 H 5.86 H 3.83 Troponin I < 0.012 < 0.012 < 0.012 Impressions: Chest X-Ray 11/04/16 06:00 IMPRESSION: RIGHT LOWER LOBE INFILTRATE APPEARS TO BE SLIGHTLY WORSE. Assessment & Plan - Diagnosis (1) Acute and chronic respiratory failure with hypercapnia Is this a current diagnosis for this admission?: Yes (2) COPD (chronic obstructive pulmonary disease) Qualifiers: COPD type: unspecified COPD Qualified Code(s): J44.9 - Chronic obstructive pulmonary disease, unspecified Is this a current diagnosis for this admission?: Yes (3) Pneumonia Qualifiers: Pneumonia type: due to unspecified organism Laterality: unspecified laterality Lung location: unspecified part of lung Qualified Code(s): J18.9 - Pneumonia, unspecified organism Is this a current diagnosis for this admission?: YesPlan: Breath sounds remain diminished bibasilar - Time Critical Time spent with patient: 25-34 minutes
[2016-11-06] MEDS: SEROQUEL 200 MG PO SCH (17:46)
--- NOTE | 2016-11-06 19:30 | PDOC PROGRESS REPORT ---
Subjective Progress Note for:: 11/06/16 Subjective:: She was seen by the bedside she will transferred to [facility] in a day or 2 Physical Exam Vital Signs: Temp Pulse Resp BP Pulse Ox 98.0 F 113 H 16 95/63 L 100 11/06/16 16:00 11/06/16 16:00 11/06/16 16:00 11/06/16 17:29 11/06/16 17:29 Intake & Output 11/05/16 11/06/16 11/07/16 06:59 06:59 06:59 Intake Total 537 1930 689 Output Total 1850 3200 1450 Balance -1313 -1270 -761 Weight 65.3 kg 61 kg General appearance: PRESENT: no acute distress Eye exam: PRESENT: PERRLA Cardiovascular exam: PRESENT: +S1, +S2 GI/Abdominal exam: PRESENT: soft Musculoskeletal exam: PRESENT: ambulatory Neurological exam: PRESENT: alert Results Laboratory Results: 11/05/16 04:41 11/05/16 04:41 11/06/16 09:55 Carbonic Acid 1.75 H HCO3/H2CO3 Ratio 16:1 ABG pH 7.31 L ABG pCO2 58.0 H ABG pO2 90.7 ABG HCO3 28.7 H ABG O2 Saturation 96.1 ABG Base Excess 1.3 FiO2 3L 10/29/16 10/30/16 10/30/16 19:25 01:04 07:00 CK-MB (CK-2) 9.73 H 5.86 H 3.83 Troponin I < 0.012 < 0.012 < 0.012 Impressions: Chest X-Ray 11/05/16 06:00 IMPRESSION: No significant interval change. Assessment & Plan - Diagnosis (1) Acute hypoxemic respiratory failure Is this a current diagnosis for this admission?: Yes (2) Pneumonia Qualifiers: Pneumonia type: due to unspecified organism Laterality: right Lung location: lower lobe of lung Qualified Code(s): J18.1 - Lobar pneumonia, unspecified organism Is this a current diagnosis for this admission?: Yes (3) COPD (chronic obstructive pulmonary disease) Is this a current diagnosis for this admission?: Yes (4) Acute and chronic respiratory failure with hypercapnia Is this a current diagnosis for this admission?: Yes (5) COPD (chronic obstructive pulmonary disease) Qualifiers: COPD type: unspecified COPD Qualified Code(s): J44.9 - Chronic obstructive pulmonary disease, unspecified Is this a current diagnosis for this admission?: Yes (6) Hypoxia Is this a current diagnosis for this admission?: Yes (7) Pneumonia Qualifiers: Pneumonia type: due to unspecified organism Laterality: unspecified laterality Lung location: unspecified part of lung Qualified Code(s): J18.9 - Pneumonia, unspecified organism Is this a current diagnosis for this admission?: Yes (8) Anemia Qualifiers: Anemia type: unspecified type Qualified Code(s): D64.9 - Anemia, unspecified Is this a current diagnosis for this admission?: Yes
[2016-11-06] MEDS ORDERED: CEFEPIME HCL 2 GM in DEXTROSE 5%-WATER 50 ML IV SCH (22:00)
[2016-11-06] MEDS ORDERED: CEFEPIME 2 GM/D5W RTU 2 GM/50 ML RTUPB IV SCH (22:00)
[2016-11-07] MEDS: IPRATROPIUM/ALBUTEROL 0.5-2.5 MG/3 ML AMPUL NEB SCH ×4 (02:34→20:28)
[2016-11-07 03:47] LABS: APPEARANCE,URINE CLEAR; BILIRUBIN,URINE NEGATIVE (NEGATIVE); GLUCOSE, URINE NEGATIVE (NEGATIVE); KETONES,URINE NEGATIVE (NEGATIVE); LEUKOCYTE ESTERASE,URINE NEGATIVE (NEGATIVE); NITRITE,URINE NEGATIVE (NEGATIVE); PROTEIN,URINE NEGATIVE (NEGATIVE); URINE SPECIFIC GRAVITY 1.005; UROBILINOGEN,URINE NEGATIVE mg/dL (<2.0)
[2016-11-07 03:56] LABS: URINE POTASSIUM 5.1 mmol/L (22-164)
[2016-11-07] MEDS: POTASSI CL 40 MEQ/D5-1/2NS 1L 1,000 ML IV PRN ×2 (04:17→16:04)
[2016-11-07] MEDS: BUPROPION HCL 75 MG TABLET PO SCH ×2 (05:44→17:23)
[2016-11-07] MEDS: LORAZEPAM 0.5 MG TABLET PO SCH ×3 (05:44→22:03)
[2016-11-07] MEDS: OXYCODONE HCL SR 40 MG TABLET PO SCH ×3 (05:44→22:02)
[2016-11-07 06:55] LABS: ABSOLUTE BASOPHILS # (AUTO) 0.1 10^3/uL (0.0-0.2); ABSOLUTE EOSINOPHILS # (AUTO) 0.4 10^3/uL (0.0-0.6); ABSOLUTE LYMPHOCYTES (AUTO) 1.4 10^3/uL (0.5-4.7); ABSOLUTE MONOCYTES (AUTO) 1.4 10^3/uL (0.1-1.4); ABSOLUTE NEUT (AUTO) 7.3 10^3/uL (1.7-8.2); BASOPHILS % (AUTO) 0.6 % (0-2); EOSINOPHILS % (AUTO) 3.9 % (0-6); HEMATOCRIT 33.1 % (36.0-47.0); HEMOGLOBIN 10.9 g/dL (12.0-15.5); HGB HCT DIFFERENCE -0.4; MEAN CORPUSCULAR HGB CONC 32.9 g/dL (32.0-36.0); MEAN CORPUSCULAR VOLUME 91 fl (80-97); RED BLOOD COUNT 3.62 10^6/uL (3.72-5.28); RED CELL DISTRIBUTION WIDTH 14.3 % (11.5-14.0); SEGMENTED NEUTROPHILS % (AUTO) 69.5 % (42-78); WHITE BLOOD COUNT 10.5 10^3/uL (4.0-10.5)
[2016-11-07 07:03] LABS: ALANINE AMINOTRANSFERASE 38 U/L (9-52); ALBUMIN 2.8 g/dL (3.5-5.0); ALKALINE PHOSPHATASE 56 U/L (38-126); ANION GAP 7 (5-19); ASPARTATE AMINO TRANSFERASE 31 U/L (14-36); BILIRUBIN,DIRECT 0.3 mg/dL (0.0-0.4); BILIRUBIN,TOTAL 0.3 mg/dL (0.2-1.3); BLOOD UREA NITROGEN 8 mg/dL (7-20); CALCIUM 8.8 mg/dL (8.4-10.2); CARBON DIOXIDE 31 mmol/L (22-30); CHLORIDE 103 mmol/L (98-107); CREATININE RESULT 0.67 mg/dL (0.52-1.25); GLUCOSE 94 mg/dL (75-110); POTASSIUM 4.1 mmol/L (3.6-5.0); SODIUM 140.5 mmol/L (137-145); TOTAL PROTEIN 5.4 g/dL (6.3-8.2)
--- NOTE | 2016-11-07 08:24 | RADIOLOGY REPORT (SQ) ---
EXAM DESCRIPTION: CHEST SINGLE VIEW COMPLETED DATE/TIME: 11/07/2016 8:08 am REASON FOR STUDY: chronic resp failure COMPARISON: 11/05/2016 EXAM PARAMETERS: NUMBER OF VIEWS: One view. TECHNIQUE: Single frontal radiographic view of the chest acquired. RADIATION DOSE: NA LIMITATIONS: None. FINDINGS: LUNGS AND PLEURA: Persistent opacity seen in the right lateral lung base which could repre sent focal infiltrate/ edema versus chronic parenchymal changes. There is some tenting of the diaphr agm in this suggesting scarring. Small right-sided pleural effusion. Left lung is clear. No pneumo thorax is present. MEDIASTINUM AND HILAR STRUCTURES: No masses. Contour normal. HEART AND VASCULAR STRUCTURES: Cardiac size is stable. BONES: No acute findings. HARDWARE: Left IJ chest port noted in unchanged position. EKG leads overlie the chest. OTHER: No other significant finding. IMPRESSION: Persistent opacity in the lateral right lung base with tenting of the right hemidiaphrag m. This likely represents some chronic changes with superimposed infiltrate. Overall this appears s imilar to slightly improved in comparison prior study. TECHNICAL DOCUMENTATION: JOB ID: [id number]
[2016-11-07] MEDS: ENOXAPARIN SODIUM INJ 40 MG/0.4 ML DISP.SYRIN SUBCUT SCH (08:53)
[2016-11-07] MEDS: GUAIFENESIN 600 MG TABLET.SA PO SCH ×2 (10:16→17:23)
[2016-11-07] MEDS: LEVOFLOXACIN 750 MG/D5W RTU 750 MG/150 ML RTUPB IV SCH (10:16)
[2016-11-07] MEDS: FAMOTIDINE INJ/PF 20 MG/2 ML SDV IV SCH ×2 (10:16→22:02)
[2016-11-07] MEDS: ASPIRIN 81 MG TABLET, CHEWABLE NG SCH (10:17)
[2016-11-07] MEDS: VALSARTAN 80 MG TABLET NG SCH (10:17)
[2016-11-07] MEDS: IRON POLYSACCHARIDES COMPLEX 150 MG CAPSULE PO SCH (10:18)
[2016-11-07] MEDS: ROFLUMILAST 500 MCG TABLET PO SCH (12:47)
[2016-11-07] MEDS: SEROQUEL 200 MG PO SCH (17:19)
--- NOTE | 2016-11-07 17:19 | PDOC PROGRESS REPORT ---
Subjective Progress Note for:: 11/07/16 Subjective:: Patient seen by the bedside, she was transferred from the unit to medical floor , and yesterday she persistent form of tachycardia that was associated with a gradient between systolic blood pressure is standing and sitting was more than 15 suggesting hypovolemia, the urine sodium was 60 suggesting that the source of volume loss is the urine, and hypovolemia the expected urine sodium should be less than 20 unless patient is on diuretic or have sodium losing nephropathy .But she is not on any diurectic that I know off Physical Exam Vital Signs: Temp Pulse Resp BP Pulse Ox 98.3 F 118 H 18 113/60 97 11/07/16 11:18 11/07/16 14:25 11/07/16 14:25 11/07/16 11:18 11/07/16 14:25 Intake & Output 11/06/16 11/07/16 11/08/16 06:59 06:59 06:59 Intake Total 1930 1459 500 Output Total 3200 2100 600 Balance -1270 -641 -100 Weight 61 kg 67.2 kg 67.2 kg General appearance: PRESENT: no acute distress Eye exam: PRESENT: PERRLA Respiratory exam: PRESENT: clear to auscultation melanie Cardiovascular exam: PRESENT: +S1, +S2 GI/Abdominal exam: PRESENT: soft Neurological exam: PRESENT: alert Results Laboratory Results: 11/07/16 06:38 11/07/16 06:38 11/07/16 11/07/16 11/07/16 03:15 06:38 06:38 WBC 10.5 RBC 3.62 L Hgb 10.9 L Hct 33.1 L MCV 91 MCH 30.0 MCHC 32.9 RDW 14.3 H Plt Count 276 Seg Neutrophils % 69.5 Lymphocytes % 13.0 Monocytes % 13.0 Eosinophils % 3.9 Basophils % 0.6 Absolute Neutrophils 7.3 Absolute Lymphocytes 1.4 Absolute Monocytes 1.4 Absolute Eosinophils 0.4 Absolute Basophils 0.1 Sodium 140.5 Potassium 4.1 Chloride 103 Carbon Dioxide 31 H Anion Gap 7 BUN 8 Creatinine 0.67 Est GFR ( Amer) > 60 Est GFR (Non-Af Amer) > 60 Glucose 94 Calcium 8.8 Total Bilirubin 0.3 AST 31 ALT 38 Alkaline Phosphatase 56 Total Protein 5.4 L Albumin 2.8 L Urine Color STRAW Urine Appearance CLEAR Urine pH 6.0 Ur Specific [place] 1.005 Urine Protein NEGATIVE Urine Glucose (UA) NEGATIVE Urine Ketones NEGATIVE Urine Blood NEGATIVE Urine Nitrite NEGATIVE Ur Leukocyte Esterase NEGATIVE Urine WBC (Auto) 4 Urine RBC (Auto) 0 10/29/16 10/30/16 10/30/16 19:25 01:04 07:00 CK-MB (CK-2) 9.73 H 5.86 H 3.83 Troponin I < 0.012 < 0.012 < 0.012 Impressions: Chest X-Ray 11/07/16 06:00 IMPRESSION: Persistent opacity in the lateral right lung base with tenting of the right hemidiaphragm. This likely represents some chronic changes with superimposed infiltrate. Overall this appears similar to slightly improved in comparison prior study. Assessment & Plan - Diagnosis (1) Acute hypoxemic respiratory failure Is this a current diagnosis for this admission?: Yes (2) Pneumonia Qualifiers: Pneumonia type: due to unspecified organism Laterality: right Lung location: lower lobe of lung Qualified Code(s): J18.1 - Lobar pneumonia, unspecified organism Is this a current diagnosis for this admission?: Yes (3) COPD (chronic obstructive pulmonary disease) Is this a current diagnosis for this admission?: Yes (4) Acute and chronic respiratory failure with hypercapnia Is this a current diagnosis for this admission?: Yes (5) COPD (chronic obstructive pulmonary disease) Qualifiers: COPD type: unspecified COPD Qualified Code(s): J44.9 - Chronic obstructive pulmonary disease, unspecified Is this a current diagnosis for this admission?: Yes (6) Hypoxia Is this a current diagnosis for this admission?: Yes (7) Pneumonia Qualifiers: Pneumonia type: due to unspecified organism Laterality: unspecified laterality Lung location: unspecified part of lung Qualified Code(s): J18.9 - Pneumonia, unspecified organism Is this a current diagnosis for this admission?: Yes (8) Anemia Qualifiers: Anemia type: unspecified type Qualified Code(s): D64.9 - Anemia, unspecified Is this a current diagnosis for this admission?: Yes (9) Hypovolemia Is this a current diagnosis for this admission?: YesPlan: She will be treated with IV fluid,
[2016-11-07] MEDS: CEFEPIME 2 GM/D5W RTU 2 GM/50 ML RTUPB IV SCH (22:02)
[2016-11-08] MEDS: POTASSI CL 40 MEQ/D5-1/2NS 1L 1,000 ML IV PRN ×3 (01:36→23:46)
[2016-11-08] MEDS: IPRATROPIUM/ALBUTEROL 0.5-2.5 MG/3 ML AMPUL NEB SCH ×4 (02:20→20:07)
[2016-11-08] MEDS: LORAZEPAM 0.5 MG TABLET PO SCH ×3 (05:23→21:15)
[2016-11-08] MEDS: OXYCODONE HCL SR 40 MG TABLET PO SCH ×3 (05:25→21:12)
[2016-11-08] MEDS: BUPROPION HCL 75 MG TABLET PO SCH ×2 (05:25→17:30)
[2016-11-08] MEDS: LEVOFLOXACIN 750 MG/D5W RTU 750 MG/150 ML RTUPB IV SCH (09:42)
[2016-11-08] MEDS: ENOXAPARIN SODIUM INJ 40 MG/0.4 ML DISP.SYRIN SUBCUT SCH (09:42)
[2016-11-08] MEDS: VALSARTAN 80 MG TABLET PO SCH (09:43)
[2016-11-08] MEDS: ROFLUMILAST 500 MCG TABLET PO SCH (09:43)
[2016-11-08] MEDS: GUAIFENESIN 600 MG TABLET.SA PO SCH ×2 (09:43→17:30)
[2016-11-08] MEDS: IRON POLYSACCHARIDES COMPLEX 150 MG CAPSULE PO SCH (09:43)
[2016-11-08] MEDS: FAMOTIDINE INJ/PF 20 MG/2 ML SDV IV SCH (09:44)
[2016-11-08] MEDS: ASPIRIN 81 MG TABLET, CHEWABLE PO SCH (09:44)
[2016-11-08] MEDS ORDERED: OXYCODONE HCL IR 5 MG TABLET NG PRN (10:23)
[2016-11-08] MEDS: CEFEPIME 2 GM/D5W RTU 2 GM/50 ML RTUPB IV SCH ×2 (10:55→21:11)
[2016-11-08] MEDS: OXYCODONE-ACETAMINOPHEN 5-325 MG TABLET NG PRN (11:07)
[2016-11-08] MEDS ORDERED: PROCHLORPERAZINE MALEATE 10 MG TABLET PO PRN (11:57)
[2016-11-08] MEDS: SEROQUEL 200 MG PO SCH (17:30)
--- NOTE | 2016-11-08 20:57 | PDOC PROGRESS REPORT ---
Subjective Progress Note for:: 11/08/16 Subjective:: She was seen by the bedside she will transferred to [facility] in a day or 2 Physical Exam Vital Signs: Temp Pulse Resp BP Pulse Ox 98.1 F 116 H 20 136/57 H 100 11/08/16 15:24 11/08/16 15:24 11/08/16 15:24 11/08/16 15:24 11/08/16 15:24 Intake & Output 11/07/16 11/08/16 11/09/16 06:59 06:59 06:59 Intake Total 1459 3060 1737 Output Total 2100 2750 800 Balance -641 310 937 Weight 67.2 kg 68.3 kg General appearance: PRESENT: no acute distress Eye exam: PRESENT: PERRLA Respiratory exam: PRESENT: clear to auscultation melanie Cardiovascular exam: PRESENT: +S1, +S2 Neurological exam: PRESENT: alert Results Laboratory Results: 11/07/16 06:38 11/07/16 06:38 10/29/16 10/30/16 10/30/16 19:25 01:04 07:00 CK-MB (CK-2) 9.73 H 5.86 H 3.83 Troponin I < 0.012 < 0.012 < 0.012 Impressions: Chest X-Ray 11/07/16 06:00 IMPRESSION: Persistent opacity in the lateral right lung base with tenting of the right hemidiaphragm. This likely represents some chronic changes with superimposed infiltrate. Overall this appears similar to slightly improved in comparison prior study. Assessment & Plan - Diagnosis (1) Acute hypoxemic respiratory failure Is this a current diagnosis for this admission?: Yes (2) Pneumonia Qualifiers: Pneumonia type: due to unspecified organism Laterality: right Lung location: lower lobe of lung Qualified Code(s): J18.1 - Lobar pneumonia, unspecified organism Is this a current diagnosis for this admission?: Yes (3) COPD (chronic obstructive pulmonary disease) Is this a current diagnosis for this admission?: Yes (4) Acute and chronic respiratory failure with hypercapnia Is this a current diagnosis for this admission?: Yes (5) COPD (chronic obstructive pulmonary disease) Qualifiers: COPD type: unspecified COPD Qualified Code(s): J44.9 - Chronic obstructive pulmonary disease, unspecified Is this a current diagnosis for this admission?: Yes (6) Hypoxia Is this a current diagnosis for this admission?: Yes (7) Pneumonia Qualifiers: Pneumonia type: due to unspecified organism Laterality: unspecified laterality Lung location: unspecified part of lung Qualified Code(s): J18.9 - Pneumonia, unspecified organism Is this a current diagnosis for this admission?: Yes (8) Anemia Qualifiers: Anemia type: unspecified type Qualified Code(s): D64.9 - Anemia, unspecified Is this a current diagnosis for this admission?: Yes
[2016-11-08] MEDS: FAMOTIDINE 20 MG TABLET PO SCH (21:12)
[2016-11-08] MEDS: FLUCONAZOLE 100 MG TABLET PO SCH (21:12)
[2016-11-09] MEDS: IPRATROPIUM/ALBUTEROL 0.5-2.5 MG/3 ML AMPUL NEB SCH ×4 (02:03→20:41)
[2016-11-09 05:19] LABS: HEMATOCRIT 31.5 % (36.0-47.0); HEMOGLOBIN 10.3 g/dL (12.0-15.5); HGB HCT DIFFERENCE -0.6; MEAN CORPUSCULAR HGB CONC 32.8 g/dL (32.0-36.0); MEAN CORPUSCULAR VOLUME 91 fl (80-97); RED BLOOD COUNT 3.45 10^6/uL (3.72-5.28); RED CELL DISTRIBUTION WIDTH 14.2 % (11.5-14.0); WHITE BLOOD COUNT 7.5 10^3/uL (4.0-10.5)
[2016-11-09] MEDS: OXYCODONE HCL SR 40 MG TABLET PO SCH ×3 (06:20→21:42)
[2016-11-09] MEDS: BUPROPION HCL 75 MG TABLET PO SCH ×2 (06:21→17:56)
[2016-11-09] MEDS: LORAZEPAM 0.5 MG TABLET PO SCH ×4 (06:22→23:27)
[2016-11-09] MEDS: CEFEPIME 2 GM/D5W RTU 2 GM/50 ML RTUPB IV SCH ×2 (09:16→21:42)
[2016-11-09] MEDS: ENOXAPARIN SODIUM INJ 40 MG/0.4 ML DISP.SYRIN SUBCUT SCH (09:19)
[2016-11-09] MEDS: GUAIFENESIN 600 MG TABLET.SA PO SCH ×2 (09:21→17:56)
[2016-11-09] MEDS: ASPIRIN 81 MG TABLET, CHEWABLE PO SCH (09:21)
[2016-11-09] MEDS: ROFLUMILAST 500 MCG TABLET PO SCH (09:22)
[2016-11-09] MEDS: VALSARTAN 80 MG TABLET PO SCH (09:22)
[2016-11-09] MEDS: FAMOTIDINE 20 MG TABLET PO SCH ×2 (09:22→21:42)
[2016-11-09] MEDS: IRON POLYSACCHARIDES COMPLEX 150 MG CAPSULE PO SCH (09:22)
[2016-11-09] MEDS: LEVOFLOXACIN 750 MG/D5W RTU 750 MG/150 ML RTUPB IV SCH (09:23)
[2016-11-09] MEDS: POTASSI CL 40 MEQ/D5-1/2NS 1L 1,000 ML IV PRN (12:39)
[2016-11-09 12:59] LABS: APPEARANCE,URINE CLEAR; BILIRUBIN,URINE NEGATIVE (NEGATIVE); GLUCOSE, URINE NEGATIVE (NEGATIVE); KETONES,URINE NEGATIVE (NEGATIVE); LEUKOCYTE ESTERASE,URINE NEGATIVE (NEGATIVE); NITRITE,URINE NEGATIVE (NEGATIVE); PROTEIN,URINE NEGATIVE (NEGATIVE); URINE SPECIFIC GRAVITY 1.006; UROBILINOGEN,URINE NEGATIVE mg/dL (<2.0)
[2016-11-09] MEDS: SEROQUEL 200 MG PO SCH (17:55)
--- NOTE | 2016-11-09 20:51 | PDOC PROGRESS REPORT ---
Subjective Progress Note for:: 11/09/16 Subjective:: Patient continues to have sinus tachycardia despite hydration with IV fluids for the last couple of days, she also complained of increased shortness of breath in the last few hours, this could be from hydration with IV fluids, the IV fluid will be discontinued Physical Exam Vital Signs: Temp Pulse Resp BP Pulse Ox 98.0 F 114 H 18 143/62 H 100 11/09/16 15:44 11/09/16 15:44 11/09/16 15:44 11/09/16 15:44 11/09/16 15:44 Intake & Output 11/08/16 11/09/16 11/10/16 06:59 06:59 06:59 Intake Total 3060 3243 1586 Output Total 2750 1330 600 Balance 310 1913 986 Weight 68.3 kg 64.7 kg General appearance: PRESENT: mild distress Eye exam: PRESENT: PERRLA Respiratory exam: PRESENT: decreased breath sounds Cardiovascular exam: PRESENT: +S1, +S2 Neurological exam: PRESENT: alert Results Laboratory Results: 11/09/16 04:35 11/07/16 06:38 11/09/16 11/09/16 04:35 12:40 WBC 7.5 RBC 3.45 L Hgb 10.3 L Hct 31.5 L MCV 91 MCH 30.0 MCHC 32.8 RDW 14.2 H Plt Count 255 Urine Color STRAW Urine Appearance CLEAR Urine pH 6.0 Ur Specific [place] 1.006 Urine Protein NEGATIVE Urine Glucose (UA) NEGATIVE Urine Ketones NEGATIVE Urine Blood NEGATIVE Urine Nitrite NEGATIVE Ur Leukocyte Esterase NEGATIVE Urine WBC (Auto) 3 Urine RBC (Auto) 1 10/29/16 10/30/16 10/30/16 19:25 01:04 07:00 CK-MB (CK-2) 9.73 H 5.86 H 3.83 Troponin I < 0.012 < 0.012 < 0.012 Impressions: Chest X-Ray 11/07/16 06:00 IMPRESSION: Persistent opacity in the lateral right lung base with tenting of the right hemidiaphragm. This likely represents some chronic changes with superimposed infiltrate. Overall this appears similar to slightly improved in comparison prior study. Assessment & Plan - Diagnosis (1) Acute hypoxemic respiratory failure Is this a current diagnosis for this admission?: Yes (2) Pneumonia Qualifiers: Pneumonia type: due to unspecified organism Laterality: right Lung location: lower lobe of lung Qualified Code(s): J18.1 - Lobar pneumonia, unspecified organism Is this a current diagnosis for this admission?: Yes (3) COPD (chronic obstructive pulmonary disease) Is this a current diagnosis for this admission?: Yes (4) Acute and chronic respiratory failure with hypercapnia Is this a current diagnosis for this admission?: Yes (5) COPD (chronic obstructive pulmonary disease) Qualifiers: COPD type: unspecified COPD Qualified Code(s): J44.9 - Chronic obstructive pulmonary disease, unspecified Is this a current diagnosis for this admission?: Yes (6) Hypoxia Is this a current diagnosis for this admission?: Yes (7) Pneumonia Qualifiers: Pneumonia type: due to unspecified organism Laterality: unspecified laterality Lung location: unspecified part of lung Qualified Code(s): J18.9 - Pneumonia, unspecified organism Is this a current diagnosis for this admission?: Yes (8) Anemia Qualifiers: Anemia type: unspecified type Qualified Code(s): D64.9 - Anemia, unspecified Is this a current diagnosis for this admission?: Yes - Plan Summary Plan Summary: Discontinue IV fluid
[2016-11-09] MEDS: FLUCONAZOLE 100 MG TABLET PO SCH (21:42)
[2016-11-10] MEDS: IPRATROPIUM/ALBUTEROL 0.5-2.5 MG/3 ML AMPUL NEB SCH ×2 (01:46→08:44)
[2016-11-10] MEDS: BUPROPION HCL 75 MG TABLET PO SCH ×2 (06:18→17:54)
[2016-11-10] MEDS: OXYCODONE HCL SR 40 MG TABLET PO SCH ×3 (06:18→21:44)
[2016-11-10 07:00] LABS: HEMATOCRIT 35.7 % (36.0-47.0); HEMOGLOBIN 11.7 g/dL (12.0-15.5); HGB HCT DIFFERENCE -0.6; MEAN CORPUSCULAR HEMOGLOBIN 29.9 pg (27.0-33.4); MEAN CORPUSCULAR HGB CONC 32.7 g/dL (32.0-36.0); MEAN CORPUSCULAR VOLUME 91 fl (80-97); RED BLOOD COUNT 3.91 10^6/uL (3.72-5.28); RED CELL DISTRIBUTION WIDTH 14.1 % (11.5-14.0); WHITE BLOOD COUNT 7.2 10^3/uL (4.0-10.5)
[2016-11-10 07:16] LABS: ANION GAP 11 (5-19); BLOOD UREA NITROGEN 7 mg/dL (7-20); CALCIUM 9.6 mg/dL (8.4-10.2); CARBON DIOXIDE 30 mmol/L (22-30); CHLORIDE 102 mmol/L (98-107); GLUCOSE 71 mg/dL (75-110); MAGNESIUM 1.5 mg/dL (1.6-2.3); SODIUM 142.5 mmol/L (137-145)
[2016-11-10 07:22] LABS: POTASSIUM 4.9 mmol/L (3.6-5.0)
[2016-11-10] MEDS: IRON POLYSACCHARIDES COMPLEX 150 MG CAPSULE PO SCH (09:19)
[2016-11-10] MEDS: GUAIFENESIN 600 MG TABLET.SA PO SCH ×2 (09:19→17:54)
[2016-11-10] MEDS: FAMOTIDINE 20 MG TABLET PO SCH ×2 (09:19→21:44)
[2016-11-10] MEDS: ASPIRIN 81 MG TABLET, CHEWABLE PO SCH (09:19)
[2016-11-10] MEDS: LEVOFLOXACIN 750 MG/D5W RTU 750 MG/150 ML RTUPB IV SCH (09:20)
[2016-11-10] MEDS: VALSARTAN 80 MG TABLET PO SCH (09:20)
[2016-11-10] MEDS: ENOXAPARIN SODIUM INJ 40 MG/0.4 ML DISP.SYRIN SUBCUT SCH (09:21)
[2016-11-10] MEDS: ROFLUMILAST 500 MCG TABLET PO SCH (09:23)
[2016-11-10] MEDS: CEFEPIME 2 GM/D5W RTU 2 GM/50 ML RTUPB IV SCH ×2 (09:24→21:45)
--- NOTE | 2016-11-10 10:42 | PDOC PROGRESS REPORT ---
Physical Exam Vital Signs: Temp Pulse Resp BP Pulse Ox 98.4 F 115 H 20 152/82 H 98 11/10/16 08:14 11/10/16 08:44 11/10/16 08:44 11/10/16 08:14 11/10/16 08:44 Intake & Output 11/09/16 11/10/16 11/11/16 06:59 06:59 06:59 Intake Total 3243 1921 Output Total 1330 1400 Balance 1913 521 Weight 64.7 kg 63.3 kg General appearance: PRESENT: no acute distress, well-developed, well-nourished Head exam: PRESENT: atraumatic, normocephalic Eye exam: PRESENT: conjunctiva pink, EOMI, PERRLA. ABSENT: scleral icterus Ear exam: PRESENT: normal external ear exam Mouth exam: PRESENT: moist, tongue midline Neck exam: PRESENT: full ROM. ABSENT: carotid bruit, JVD, lymphadenopathy, thyromegaly Respiratory exam: PRESENT: clear to auscultation melanie Cardiovascular exam: PRESENT: RRR. ABSENT: diastolic murmur, rubs, systolic murmur Pulses: PRESENT: normal dorsalis pedis pul, +2 pedal pulses bilateral Vascular exam: PRESENT: normal capillary refill GI/Abdominal exam: PRESENT: normal bowel sounds, soft. ABSENT: distended, guarding, mass, organolmegaly, rebound, tenderness Rectal exam: PRESENT: deferred Neurological exam: PRESENT: alert, awake, oriented to person, oriented to place , oriented to time, oriented to situation, CN II-XII grossly intact. ABSENT: motor sensory deficit Psychiatric exam: PRESENT: appropriate affect, normal mood. ABSENT: homicidal ideation, suicidal ideation Skin exam: PRESENT: dry, intact, warm. ABSENT: cyanosis, rash Results Laboratory Results: 11/10/16 06:40 11/10/16 06:40 11/09/16 11/10/16 11/10/16 12:40 06:40 06:40 WBC 7.2 RBC 3.91 Hgb 11.7 L Hct 35.7 L MCV 91 MCH 29.9 MCHC 32.7 RDW 14.1 H Plt Count 269 Sodium 142.5 Potassium 4.9 Chloride 102 Carbon Dioxide 30 Anion Gap 11 BUN 7 Creatinine 0.60 Est GFR ( Amer) > 60 Est GFR (Non-Af Amer) > 60 Glucose 71 L Calcium 9.6 Magnesium 1.5 L Urine Color STRAW Urine Appearance CLEAR Urine pH 6.0 Ur Specific [place] 1.006 Urine Protein NEGATIVE Urine Glucose (UA) NEGATIVE Urine Ketones NEGATIVE Urine Blood NEGATIVE Urine Nitrite NEGATIVE Ur Leukocyte Esterase NEGATIVE Urine WBC (Auto) 3 Urine RBC (Auto) 1 10/29/16 10/30/16 10/30/16 19:25 01:04 07:00 CK-MB (CK-2) 9.73 H 5.86 H 3.83 Troponin I < 0.012 < 0.012 < 0.012 Impressions: Chest X-Ray 11/07/16 06:00 IMPRESSION: Persistent opacity in the lateral right lung base with tenting of the right hemidiaphragm. This likely represents some chronic changes with superimposed infiltrate. Overall this appears similar to slightly improved in comparison prior study. Assessment & Plan - Diagnosis (1) Acute and chronic respiratory failure with hypercapnia Is this a current diagnosis for this admission?: YesPlan: Currently stable (2) COPD (chronic obstructive pulmonary disease) Qualifiers: COPD type: unspecified COPD Qualified Code(s): J44.9 - Chronic obstructive pulmonary disease, unspecified Is this a current diagnosis for this admission?: YesPlan: We change the albuterol to Xopenex due to the heart rate (3) Pneumonia Qualifiers: Pneumonia type: due to unspecified organism Laterality: unspecified laterality Lung location: unspecified part of lung Qualified Code(s): J18.9 - Pneumonia, unspecified organism Is this a current diagnosis for this admission?: YesPlan: Continues to IV antibiotic (4) Tachycardia Is this a current diagnosis for this admission?: YesPlan: We will get the EKG is a sinus rhythm most likely a from underlying COPD in the respiratory treatment. Will change the albuterol to Xopenex and put the patient on Cardizem 30 mg every 8 - Time Time Spent with patient: 15-24 minutes Medications reviewed and adjusted accordingly: Yes Anticipated discharge: Other Within: Other - Inpatient Certification Medical Necessity: Need Close Monitoring Due to Risk of Patient Decompensation, Need for IV Antibiotics Post Hospital Care: D/C [place] Documentation - Plan Summary Plan Summary: As above otherwise continues to current medications
[2016-11-10] MEDS: DILTIAZEM HCL 30 MG TABLET PO SCH ×2 (13:30→21:45)
[2016-11-10] MEDS: LORAZEPAM 0.5 MG TABLET PO SCH ×2 (13:31→21:53)
[2016-11-10] MEDS: LEVALBUTEROL HCL NEB 0.63 MG/3 ML AMPUL NEB SCH ×2 (14:34→20:50)
[2016-11-10] MEDS: SEROQUEL 200 MG PO SCH (17:53)
[2016-11-10] MEDS: FLUCONAZOLE 100 MG TABLET PO SCH (21:45)
[2016-11-10] MEDS: ZOLPIDEM TARTRATE 5 MG TABLET PO PRN (21:47)
[2016-11-11] MEDS: BUPROPION HCL 75 MG TABLET PO SCH ×2 (06:17→18:32)
[2016-11-11] MEDS: OXYCODONE HCL SR 40 MG TABLET PO SCH ×3 (06:17→21:10)
[2016-11-11] MEDS: DILTIAZEM HCL 30 MG TABLET PO SCH ×3 (06:18→21:10)
[2016-11-11] MEDS: LORAZEPAM 0.5 MG TABLET PO SCH ×2 (06:21→15:10)
[2016-11-11 07:42] LABS: HEMATOCRIT 34.4 % (36.0-47.0); HEMOGLOBIN 11.1 g/dL (12.0-15.5); HGB HCT DIFFERENCE -1.1; MEAN CORPUSCULAR HEMOGLOBIN 29.5 pg (27.0-33.4); MEAN CORPUSCULAR HGB CONC 32.2 g/dL (32.0-36.0); MEAN CORPUSCULAR VOLUME 92 fl (80-97); RED BLOOD COUNT 3.75 10^6/uL (3.72-5.28); RED CELL DISTRIBUTION WIDTH 13.5 % (11.5-14.0); WHITE BLOOD COUNT 7.4 10^3/uL (4.0-10.5)
[2016-11-11] MEDS: LEVALBUTEROL HCL NEB 0.63 MG/3 ML AMPUL NEB SCH ×3 (08:02→20:38)
[2016-11-11 08:07] LABS: ANION GAP 7 (5-19); BLOOD UREA NITROGEN 10 mg/dL (7-20); CALCIUM 8.7 mg/dL (8.4-10.2); CARBON DIOXIDE 32 mmol/L (22-30); CHLORIDE 100 mmol/L (98-107); CREATININE RESULT 0.81 mg/dL (0.52-1.25); GLUCOSE 74 mg/dL (75-110); MAGNESIUM 1.4 mg/dL (1.6-2.3); POTASSIUM 4.3 mmol/L (3.6-5.0); SODIUM 139.4 mmol/L (137-145)
[2016-11-11] MEDS: ENOXAPARIN SODIUM INJ 40 MG/0.4 ML DISP.SYRIN SUBCUT SCH (08:41)
[2016-11-11] MEDS: ROFLUMILAST 500 MCG TABLET PO SCH (10:51)
[2016-11-11] MEDS: GUAIFENESIN 600 MG TABLET.SA PO SCH ×2 (10:52→18:32)
[2016-11-11] MEDS: VALSARTAN 80 MG TABLET PO SCH (10:54)
[2016-11-11] MEDS: FAMOTIDINE 20 MG TABLET PO SCH ×2 (10:54→21:10)
[2016-11-11] MEDS: LEVOFLOXACIN 750 MG/D5W RTU 750 MG/150 ML RTUPB IV SCH (10:55)
[2016-11-11] MEDS: IRON POLYSACCHARIDES COMPLEX 150 MG CAPSULE PO SCH (10:55)
[2016-11-11] MEDS: ASPIRIN 81 MG TABLET, CHEWABLE PO SCH (10:55)
[2016-11-11] MEDS: CEFEPIME 2 GM/D5W RTU 2 GM/50 ML RTUPB IV SCH ×2 (10:56→21:35)
--- NOTE | 2016-11-11 12:58 | EKG REPORT ---
SEVERITY:- BORDERLINE ECG - SINUS TACHYCARDIA LOW VOLTAGE WITH RIGHT AXIS DEVIATION BORDERLINE R WAVE PROGRESSION, ANTERIOR LEADS : Confirmed by: Fely Wadsworth MD 11-Nov-2016 12:56:56
--- NOTE | 2016-11-11 13:36 | PDOC PROGRESS REPORT ---
Subjective Progress Note for:: 11/11/16 Subjective:: pt is doing well hr under control nocp no sob Physical Exam Vital Signs: Temp Pulse Resp BP Pulse Ox 98.4 F 102 H 16 109/43 L 94 11/11/16 03:27 11/11/16 07:00 11/11/16 03:27 11/11/16 03:27 11/11/16 03:27 Intake & Output 11/10/16 11/11/16 11/12/16 06:59 06:59 06:59 Intake Total 1921 709 Output Total 1400 2150 Balance 521 -1441 Weight 63.3 kg 62.5 kg General appearance: PRESENT: no acute distress, well-developed, well-nourished Head exam: PRESENT: atraumatic, normocephalic Eye exam: PRESENT: conjunctiva pink, EOMI, PERRLA. ABSENT: scleral icterus Ear exam: PRESENT: normal external ear exam Mouth exam: PRESENT: moist, tongue midline Neck exam: PRESENT: full ROM. ABSENT: carotid bruit, JVD, lymphadenopathy, thyromegaly Cardiovascular exam: PRESENT: RRR. ABSENT: diastolic murmur, rubs, systolic murmur Pulses: PRESENT: normal dorsalis pedis pul, +2 pedal pulses bilateral Vascular exam: PRESENT: normal capillary refill GI/Abdominal exam: PRESENT: normal bowel sounds, soft. ABSENT: distended, guarding, mass, organolmegaly, rebound, tenderness Rectal exam: PRESENT: deferred Neurological exam: PRESENT: alert, awake, oriented to person, oriented to place , oriented to time, oriented to situation, CN II-XII grossly intact. ABSENT: motor sensory deficit Psychiatric exam: PRESENT: appropriate affect, normal mood. ABSENT: homicidal ideation, suicidal ideation Skin exam: PRESENT: dry, intact, warm. ABSENT: cyanosis, rash Results Laboratory Results: 11/11/16 06:46 11/11/16 06:46 11/11/16 11/11/16 06:46 06:46 WBC 7.4 RBC 3.75 Hgb 11.1 L Hct 34.4 L MCV 92 MCH 29.5 MCHC 32.2 RDW 13.5 Plt Count 275 Sodium 139.4 Potassium 4.3 Chloride 100 Carbon Dioxide 32 H Anion Gap 7 BUN 10 Creatinine 0.81 Est GFR ( Amer) > 60 Est GFR (Non-Af Amer) > 60 Glucose 74 L Calcium 8.7 Magnesium 1.4 L 10/29/16 10/30/16 10/30/16 19:25 01:04 07:00 CK-MB (CK-2) 9.73 H 5.86 H 3.83 Troponin I < 0.012 < 0.012 < 0.012 Impressions: Chest X-Ray 11/07/16 06:00 IMPRESSION: Persistent opacity in the lateral right lung base with tenting of the right hemidiaphragm. This likely represents some chronic changes with superimposed infiltrate. Overall this appears similar to slightly improved in comparison prior study. Assessment & Plan - Diagnosis (1) Acute and chronic respiratory failure with hypercapnia Is this a current diagnosis for this admission?: YesPlan: Currently stable (2) COPD (chronic obstructive pulmonary disease) Qualifiers: COPD type: unspecified COPD Qualified Code(s): J44.9 - Chronic obstructive pulmonary disease, unspecified Is this a current diagnosis for this admission?: YesPlan: We change the albuterol to Xopenex due to the heart rate (3) Pneumonia Qualifiers: Pneumonia type: due to unspecified organism Laterality: unspecified laterality Lung location: unspecified part of lung Qualified Code(s): J18.9 - Pneumonia, unspecified organism Is this a current diagnosis for this admission?: YesPlan: Continues to IV antibiotic (4) Tachycardia Is this a current diagnosis for this admission?: Yes - Time Time Spent with patient: 15-24 minutes Medications reviewed and adjusted accordingly: Yes Anticipated discharge: Other Within: Other - Inpatient Certification Medical Necessity: Need Close Monitoring Due to Risk of Patient Decompensation Post Hospital Care: D/C [place] Documentation - cont curr med
[2016-11-11] MEDS: SEROQUEL 200 MG PO SCH (18:33)
[2016-11-11] MEDS: FLUCONAZOLE 100 MG TABLET PO SCH (21:11)
[2016-11-11] MEDS: ZOLPIDEM TARTRATE 5 MG TABLET PO PRN (21:12)
[2016-11-12] MEDS: LORAZEPAM 0.5 MG TABLET PO SCH ×3 (00:51→22:22)
[2016-11-12 05:19] LABS: HEMATOCRIT 38.2 % (36.0-47.0); HEMOGLOBIN 12.3 g/dL (12.0-15.5); HGB HCT DIFFERENCE -1.3; MEAN CORPUSCULAR HEMOGLOBIN 29.7 pg (27.0-33.4); MEAN CORPUSCULAR HGB CONC 32.1 g/dL (32.0-36.0); MEAN CORPUSCULAR VOLUME 93 fl (80-97); RED BLOOD COUNT 4.13 10^6/uL (3.72-5.28); WHITE BLOOD COUNT 8.5 10^3/uL (4.0-10.5)
[2016-11-12 05:34] LABS: ANION GAP 10 (5-19); BLOOD UREA NITROGEN 10 mg/dL (7-20); CALCIUM 9.1 mg/dL (8.4-10.2); CARBON DIOXIDE 32 mmol/L (22-30); CHLORIDE 99 mmol/L (98-107); CREATININE RESULT 0.76 mg/dL (0.52-1.25); GLUCOSE 85 mg/dL (75-110); MAGNESIUM 1.4 mg/dL (1.6-2.3); POTASSIUM 4.1 mmol/L (3.6-5.0); SODIUM 140.7 mmol/L (137-145)
[2016-11-12] MEDS: OXYCODONE HCL SR 40 MG TABLET PO SCH ×3 (06:02→22:15)
[2016-11-12] MEDS: DILTIAZEM HCL 30 MG TABLET PO SCH ×3 (06:02→22:15)
[2016-11-12] MEDS: BUPROPION HCL 75 MG TABLET PO SCH ×2 (06:02→17:29)
[2016-11-12] MEDS: LEVALBUTEROL HCL NEB 0.63 MG/3 ML AMPUL NEB SCH ×3 (08:06→20:22)
[2016-11-12] MEDS: ENOXAPARIN SODIUM INJ 40 MG/0.4 ML DISP.SYRIN SUBCUT SCH (09:20)
[2016-11-12] MEDS: ASPIRIN 81 MG TABLET, CHEWABLE PO SCH (09:21)
[2016-11-12] MEDS: FAMOTIDINE 20 MG TABLET PO SCH ×2 (09:21→22:15)
[2016-11-12] MEDS: VALSARTAN 80 MG TABLET PO SCH (09:21)
[2016-11-12] MEDS: LEVOFLOXACIN 750 MG TABLET PO SCH (09:22)
[2016-11-12] MEDS: GUAIFENESIN 600 MG TABLET.SA PO SCH ×2 (09:22→17:29)
[2016-11-12] MEDS: IRON POLYSACCHARIDES COMPLEX 150 MG CAPSULE PO SCH (09:22)
[2016-11-12] MEDS: ROFLUMILAST 500 MCG TABLET PO SCH (09:23)
[2016-11-12] MEDS: CEFEPIME 2 GM/D5W RTU 2 GM/50 ML RTUPB IV SCH ×2 (09:24→22:16)
[2016-11-12] MEDS ORDERED: LEVOFLOXACIN 750 MG/D5W RTU 750 MG/150 ML RTUPB IV SCH (10:00)
--- NOTE | 2016-11-12 12:11 | PDOC PROGRESS REPORT ---
Subjective Progress Note for:: 11/07/16 Subjective:: Awake, Lethargic Physical Exam Vital Signs: Temp Pulse Resp BP Pulse Ox 99.2 F 131 H 18 117/46 L 91 L 11/08/16 07:11 11/08/16 08:26 11/08/16 08:26 11/08/16 07:11 11/08/16 08:26 Intake & Output 11/07/16 11/08/16 11/09/16 06:59 06:59 06:59 Intake Total 1459 3060 Output Total 2100 2750 Balance -641 310 Weight 67.2 kg 68.3 kg General appearance: PRESENT: no acute distress, disheveled, well-developed, well -nourished Head exam: PRESENT: atraumatic, normocephalic Eye exam: PRESENT: conjunctiva pale, EOMI Mouth exam: PRESENT: dry mucosa, neck supple Neck exam: ABSENT: carotid bruit, JVD, lymphadenopathy, thyromegaly Respiratory exam: PRESENT: crackles, decreased breath sounds, prolonged expiratory phas, rhonchi, symmetrical, unlabored Cardiovascular exam: PRESENT: RRR, +S1, +S2 Pulses: PRESENT: normal radial pulses GI/Abdominal exam: PRESENT: normal bowel sounds, soft. ABSENT: distended, guarding, mass, organolmegaly, rebound, tenderness Rectal exam: PRESENT: deferred Musculoskeletal exam: PRESENT: normal inspection Neurological exam: PRESENT: awake Skin exam: PRESENT: dry, warm Results Laboratory Results: 11/07/16 06:38 11/07/16 06:38 10/29/16 10/30/16 10/30/16 19:25 01:04 07:00 CK-MB (CK-2) 9.73 H 5.86 H 3.83 Troponin I < 0.012 < 0.012 < 0.012 Impressions: Chest X-Ray 11/07/16 06:00 IMPRESSION: Persistent opacity in the lateral right lung base with tenting of the right hemidiaphragm. This likely represents some chronic changes with superimposed infiltrate. Overall this appears similar to slightly improved in comparison prior study. Assessment & Plan - Diagnosis (1) Acute and chronic respiratory failure with hypercapnia Is this a current diagnosis for this admission?: Yes (2) COPD (chronic obstructive pulmonary disease) Qualifiers: COPD type: unspecified COPD Qualified Code(s): J44.9 - Chronic obstructive pulmonary disease, unspecified Is this a current diagnosis for this admission?: Yes (3) Pneumonia Qualifiers: Pneumonia type: due to unspecified organism Laterality: unspecified laterality Lung location: unspecified part of lung Qualified Code(s): J18.9 - Pneumonia, unspecified organism Is this a current diagnosis for this admission?: Yes
--- NOTE | 2016-11-12 12:13 | PDOC PROGRESS REPORT ---
Subjective Progress Note for:: 11/08/16 Subjective:: Awake Physical Exam Vital Signs: Temp Pulse Resp BP Pulse Ox 99.2 F 131 H 18 117/46 L 91 L 11/08/16 07:11 11/08/16 08:26 11/08/16 08:26 11/08/16 07:11 11/08/16 08:26 Intake & Output 11/07/16 11/08/16 11/09/16 06:59 06:59 06:59 Intake Total 1459 3060 Output Total 2100 2750 Balance -641 310 Weight 67.2 kg 68.3 kg General appearance: PRESENT: no acute distress, cooperative, disheveled, well- developed, well-nourished Head exam: PRESENT: atraumatic, normocephalic Eye exam: PRESENT: conjunctiva pale, EOMI Mouth exam: PRESENT: dry mucosa, neck supple, tongue midline Neck exam: ABSENT: carotid bruit, JVD, lymphadenopathy, thyromegaly Respiratory exam: PRESENT: decreased breath sounds, prolonged expiratory phas, rhonchi, symmetrical, unlabored Cardiovascular exam: PRESENT: RRR, +S1, +S2 Pulses: PRESENT: normal radial pulses GI/Abdominal exam: PRESENT: normal bowel sounds, soft. ABSENT: distended, guarding, mass, organolmegaly, rebound, tenderness Rectal exam: PRESENT: deferred Musculoskeletal exam: PRESENT: normal inspection Neurological exam: PRESENT: awake Psychiatric exam: PRESENT: flat affect Skin exam: PRESENT: dry, warm Results Laboratory Results: 11/07/16 06:38 11/07/16 06:38 10/29/16 10/30/16 10/30/16 19:25 01:04 07:00 CK-MB (CK-2) 9.73 H 5.86 H 3.83 Troponin I < 0.012 < 0.012 < 0.012 Impressions: Chest X-Ray 11/07/16 06:00 IMPRESSION: Persistent opacity in the lateral right lung base with tenting of the right hemidiaphragm. This likely represents some chronic changes with superimposed infiltrate. Overall this appears similar to slightly improved in comparison prior study. Assessment & Plan - Diagnosis (1) Acute and chronic respiratory failure with hypercapnia Is this a current diagnosis for this admission?: Yes (2) COPD (chronic obstructive pulmonary disease) Qualifiers: COPD type: unspecified COPD Qualified Code(s): J44.9 - Chronic obstructive pulmonary disease, unspecified Is this a current diagnosis for this admission?: Yes (3) Pneumonia Qualifiers: Pneumonia type: due to unspecified organism Laterality: unspecified laterality Lung location: unspecified part of lung Qualified Code(s): J18.9 - Pneumonia, unspecified organism Is this a current diagnosis for this admission?: Yes
--- NOTE | 2016-11-12 12:14 | PDOC PROGRESS REPORT ---
Subjective Progress Note for:: 11/09/16 Subjective:: Awake more responsive Physical Exam Vital Signs: Temp Pulse Resp BP Pulse Ox 98.3 F 128 H 20 146/67 H 100 11/10/16 11:10 11/10/16 11:10 11/10/16 11:10 11/10/16 11:10 11/10/16 11:10 Intake & Output 11/09/16 11/10/16 11/11/16 06:59 06:59 06:59 Intake Total 3243 1921 300 Output Total 1330 1400 1200 Balance 1913 521 -900 Weight 64.7 kg 63.3 kg General appearance: PRESENT: no acute distress, cooperative, disheveled, well- developed, well-nourished Head exam: PRESENT: normocephalic Eye exam: PRESENT: conjunctiva pale, EOMI Mouth exam: PRESENT: dry mucosa, neck supple Neck exam: ABSENT: carotid bruit, JVD, lymphadenopathy, thyromegaly Respiratory exam: PRESENT: decreased breath sounds, prolonged expiratory phas, rhonchi, symmetrical, unlabored Cardiovascular exam: PRESENT: RRR, +S1, +S2 Pulses: PRESENT: normal radial pulses GI/Abdominal exam: PRESENT: normal bowel sounds, soft. ABSENT: distended, guarding, mass, organolmegaly, rebound, tenderness Rectal exam: PRESENT: deferred Musculoskeletal exam: PRESENT: normal inspection Neurological exam: PRESENT: alert, awake Psychiatric exam: PRESENT: normal mood Skin exam: PRESENT: dry, warm Results Laboratory Results: 11/10/16 06:40 11/10/16 06:40 11/10/16 11/10/16 06:40 06:40 WBC 7.2 RBC 3.91 Hgb 11.7 L Hct 35.7 L MCV 91 MCH 29.9 MCHC 32.7 RDW 14.1 H Plt Count 269 Sodium 142.5 Potassium 4.9 Chloride 102 Carbon Dioxide 30 Anion Gap 11 BUN 7 Creatinine 0.60 Est GFR ( Amer) > 60 Est GFR (Non-Af Amer) > 60 Glucose 71 L Calcium 9.6 Magnesium 1.5 L 10/29/16 10/30/16 10/30/16 19:25 01:04 07:00 CK-MB (CK-2) 9.73 H 5.86 H 3.83 Troponin I < 0.012 < 0.012 < 0.012 Impressions: Chest X-Ray 11/07/16 06:00 IMPRESSION: Persistent opacity in the lateral right lung base with tenting of the right hemidiaphragm. This likely represents some chronic changes with superimposed infiltrate. Overall this appears similar to slightly improved in comparison prior study. Assessment & Plan - Diagnosis (1) Acute and chronic respiratory failure with hypercapnia Is this a current diagnosis for this admission?: Yes (2) COPD (chronic obstructive pulmonary disease) Qualifiers: COPD type: unspecified COPD Qualified Code(s): J44.9 - Chronic obstructive pulmonary disease, unspecified Is this a current diagnosis for this admission?: Yes (3) Pneumonia Qualifiers: Pneumonia type: due to unspecified organism Laterality: unspecified laterality Lung location: unspecified part of lung Qualified Code(s): J18.9 - Pneumonia, unspecified organism Is this a current diagnosis for this admission?: Yes
--- NOTE | 2016-11-12 12:16 | PDOC PROGRESS REPORT ---
Subjective Progress Note for:: 11/12/16 Subjective:: Awake more responsive Physical Exam Vital Signs: Temp Pulse Resp BP Pulse Ox 98.3 F 132 H 18 118/68 100 11/12/16 07:42 11/12/16 08:05 11/12/16 08:05 11/12/16 07:42 11/12/16 11:32 Intake & Output 11/11/16 11/12/16 11/13/16 06:59 06:59 06:59 Intake Total 709 1029 Output Total 2159 0570 Balance -1441 -1671 Weight 62.5 kg 62.2 kg General appearance: PRESENT: no acute distress, cooperative, disheveled, well- developed, well-nourished Head exam: PRESENT: atraumatic, normocephalic Eye exam: PRESENT: conjunctiva pale, EOMI Mouth exam: PRESENT: moist, neck supple, tongue midline Neck exam: ABSENT: carotid bruit, JVD, lymphadenopathy, thyromegaly Respiratory exam: PRESENT: decreased breath sounds, prolonged expiratory phas, rhonchi, symmetrical, unlabored Cardiovascular exam: PRESENT: RRR, +S1, +S2 Pulses: PRESENT: normal radial pulses GI/Abdominal exam: PRESENT: normal bowel sounds, soft. ABSENT: distended, guarding, mass, organolmegaly, rebound, tenderness Rectal exam: PRESENT: deferred Musculoskeletal exam: PRESENT: normal inspection Neurological exam: PRESENT: alert, awake Psychiatric exam: PRESENT: normal mood Skin exam: PRESENT: dry, warm Results Laboratory Results: 11/12/16 04:55 11/12/16 04:55 11/12/16 11/12/16 04:55 04:55 WBC 8.5 RBC 4.13 Hgb 12.3 Hct 38.2 MCV 93 MCH 29.7 MCHC 32.1 RDW 14.0 Plt Count 275 Sodium 140.7 Potassium 4.1 Chloride 99 Carbon Dioxide 32 H Anion Gap 10 BUN 10 Creatinine 0.76 Est GFR ( Amer) > 60 Est GFR (Non-Af Amer) > 60 Glucose 85 Calcium 9.1 Magnesium 1.4 L 10/29/16 10/30/16 10/30/16 19:25 01:04 07:00 CK-MB (CK-2) 9.73 H 5.86 H 3.83 Troponin I < 0.012 < 0.012 < 0.012 Impressions: Chest X-Ray 11/07/16 06:00 IMPRESSION: Persistent opacity in the lateral right lung base with tenting of the right hemidiaphragm. This likely represents some chronic changes with superimposed infiltrate. Overall this appears similar to slightly improved in comparison prior study. Assessment & Plan - Diagnosis (1) Acute and chronic respiratory failure with hypercapnia Is this a current diagnosis for this admission?: Yes (2) COPD (chronic obstructive pulmonary disease) Qualifiers: COPD type: unspecified COPD Qualified Code(s): J44.9 - Chronic obstructive pulmonary disease, unspecified Is this a current diagnosis for this admission?: YesPlan: Improving (3) Pneumonia Qualifiers: Pneumonia type: due to unspecified organism Laterality: unspecified laterality Lung location: unspecified part of lung Qualified Code(s): J18.9 - Pneumonia, unspecified organism Is this a current diagnosis for this admission?: YesPlan: Breath sounds have improved
[2016-11-12] MEDS: SEROQUEL 200 MG PO SCH (17:30)
--- NOTE | 2016-11-12 19:25 | PDOC DISCHARGE SUMMARY ---
General - Admit/Disc Date/PCP Admission Date/Primary Care Provider: 10/29/16 18:48 BOONE GOODWIN MD Discharge Date: 11/12/16 - Discharge Diagnosis (1) Acute hypoxemic respiratory failure Is this a current diagnosis for this admission?: Yes (2) Pneumonia Is this a current diagnosis for this admission?: Yes (3) COPD (chronic obstructive pulmonary disease) Is this a current diagnosis for this admission?: Yes (4) Acute and chronic respiratory failure with hypercapnia Is this a current diagnosis for this admission?: Yes (5) COPD (chronic obstructive pulmonary disease) Is this a current diagnosis for this admission?: Yes (6) Hypoxia Is this a current diagnosis for this admission?: Yes (7) Pneumonia Is this a current diagnosis for this admission?: Yes (8) Anemia Is this a current diagnosis for this admission?: Yes (10) Sepsis Is this a current diagnosis for this admission?: Yes - Additional Information Discharge Diet: Regular Discharge Activity: Activity As Tolerated Home Medications: Albuterol Sulfate [Proair HFA] 1 puff IH DAILY 10/29/16 Alendronate Sodium [Fosamax 70 mg Tablet] 70 mg PO SCHMIDT@1000 10/29/16 Aspirin [Adult Low Dose Aspirin EC] 81 mg PO DAILY 10/29/16 Atorvastatin Calcium [Lipitor 40 mg Tablet] 40 mg PO QPM 10/29/16 Bupropion HCl [Wellbutrin Xl 150 mg 24hr Tablet] 150 mg PO QPM 10/29/16 Clopidogrel Bisulfate [Plavix 75 mg Tablet] 75 mg PO QPM 10/29/16 Fluticasone/Salmeterol [Advair 250-50 Diskus 14 Dose/Diskus] 2 puff IH DAILY 10/10 Iron Polysaccharide Complex [Ferrex 150] 150 mg PO DAILY 10/29/16 Multivits-Min/Iron/FA/Lutein [Centrum Silver Women Tablet] 1 tab PO DAILY Oxycodone HCl [Oxycodone HCl ER] 40 mg PO Q8 10/29/16 Oxycodone HCl/Acetaminophen [Oxycodone-Acetaminophen 10-325] 1 tab PO Q6HP PRN 10/29/16 Prochlorperazine Maleate [Compazine 10 mg Tablet] 10 mg PO TID 10/29/16 Quetiapine Fumarate [Seroquel Xr] 200 mg PO QPM 10/29/16 Roflumilast [Daliresp 500 mcg Tablet] 500 mcg PO DAILY 10/29/16 Tiotropium [place] [Spiriva Handihaler 18 mcg/dose (30 Dose)] 18 mcg IH DAILY Ubidecarenone [Co Q-10] 200 mg PO DAILY 10/29/16 Valsartan [Diovan 80 mg Tablet] 80 mg PO DAILY 10/29/16 Zolpidem Tartrate [Edluar SL 10 mg Tablet] 10 mg SL QHS 10/29/16 Docusate Sodium [Colace 100 mg Capsule] 100 mg PO BID 11/04/16 History of Present Illness History of Present Illness: DENNIS DEGROOT is a 61 year old female, with chronic respiratory failure on positive pressure ventilation, BiPAP at home she came to the emergency room because of shortness of breath associated with hypoxemia. She was seen and evaluated in the emergency room, chest x-ray was done, it suggested right lower lobe pneumonia associated with leukocytosis with a left shift. Patient have a history of severe chronic obstructive lung disease, a very long history of tobacco abuse now she smokes electronic cigarettes, history of lung cancer, history of poor health, chronic pain syndrome on multiple opioid therapy. When I saw patient on the floor she was lethargic hardly able to answer questions. 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 Hospital Course Hospital Course: Patient was admitted because of pneumonia, this was complicated with acute hypoxemic and hypercapnic respiratory failure requiring mechanical ventilation, she was intubated on she was managed in intensive care unit. was treated with IV antibiotic, cefepime and Levaquin. She also anemia related to sepsis, she was transfused with packed red blood cells. She had sinus tachycardia due to multifactorial etiology partly, due to hypovolemia she was treated with IV fluid normal saline for prolonged time. She was seen by pulmonary, Dr. Newby. She has sepsis from severe pneumonia Physical Exam Vital Signs: Temp Pulse Resp BP Pulse Ox 98.1 F 119 H 18 104/54 L 100 11/12/16 16:13 11/12/16 16:13 11/12/16 16:13 11/12/16 16:13 11/12/16 16:13 Intake & Output 11/11/16 11/12/16 11/13/16 06:59 06:59 06:59 Intake Total 709 1029 564 Output Total 2153 3980 500 Balance -1441 -0580 64 Weight 62.5 kg 62.2 kg General appearance: PRESENT: no acute distress, well-developed, well-nourished Head exam: PRESENT: atraumatic, normocephalic Eye exam: PRESENT: conjunctiva pink, EOMI, PERRLA Ear exam: PRESENT: normal external ear exam Mouth exam: PRESENT: moist, tongue midline Neck exam: PRESENT: full ROM Respiratory exam: PRESENT: clear to auscultation melanie Cardiovascular exam: PRESENT: RRR, +S1, +S2 GI/Abdominal exam: PRESENT: normal bowel sounds, soft Rectal exam: PRESENT: deferred Neurological exam: PRESENT: alert, CN II-XII grossly intact. ABSENT: motor sensory deficit Skin exam: PRESENT: dry, intact, warm Results Laboratory Results: 11/12/16 04:55 11/12/16 04:55 11/12/16 11/12/16 04:55 04:55 WBC 8.5 RBC 4.13 Hgb 12.3 Hct 38.2 MCV 93 MCH 29.7 MCHC 32.1 RDW 14.0 Plt Count 275 Sodium 140.7 Potassium 4.1 Chloride 99 Carbon Dioxide 32 H Anion Gap 10 BUN 10 Creatinine 0.76 Est GFR ( Amer) > 60 Est GFR (Non-Af Amer) > 60 Glucose 85 Calcium 9.1 Magnesium 1.4 L 10/29/16 10/30/16 10/30/16 19:25 01:04 07:00 CK-MB (CK-2) 9.73 H 5.86 H 3.83 Troponin I < 0.012 < 0.012 < 0.012 Impressions: Chest X-Ray 11/07/16 06:00 IMPRESSION: Persistent opacity in the lateral right lung base with tenting of the right hemidiaphragm. This likely represents some chronic changes with superimposed infiltrate. Overall this appears similar to slightly improved in comparison prior study.
[2016-11-12] MEDS ORDERED: MAGNESIUM OXIDE 400 MG TABLET PO ONE (21:00)
[2016-11-12] MEDS: ZOLPIDEM TARTRATE 5 MG TABLET PO PRN (22:15)
[2016-11-13] MEDS: OXYCODONE-ACETAMINOPHEN 5-325 MG TABLET NG PRN (01:52)
[2016-11-13] MEDS: LORAZEPAM 0.5 MG TABLET PO SCH ×2 (03:03→13:34)
[2016-11-13] MEDS: OXYCODONE HCL SR 40 MG TABLET PO SCH ×2 (06:21→13:32)
[2016-11-13] MEDS: BUPROPION HCL 75 MG TABLET PO SCH (06:21)
[2016-11-13] MEDS: DILTIAZEM HCL 30 MG TABLET PO SCH ×2 (06:21→13:34)
[2016-11-13] MEDS: ENOXAPARIN SODIUM INJ 40 MG/0.4 ML DISP.SYRIN SUBCUT SCH (07:40)
[2016-11-13] MEDS: LEVALBUTEROL HCL NEB 0.63 MG/3 ML AMPUL NEB SCH ×2 (08:01→13:47)
[2016-11-13] MEDS: ASPIRIN 81 MG TABLET, CHEWABLE PO SCH (09:20)
[2016-11-13] MEDS: FAMOTIDINE 20 MG TABLET PO SCH (09:20)
[2016-11-13] MEDS: IRON POLYSACCHARIDES COMPLEX 150 MG CAPSULE PO SCH (09:20)
[2016-11-13] MEDS: GUAIFENESIN 600 MG TABLET.SA PO SCH (09:20)
[2016-11-13] MEDS: ROFLUMILAST 500 MCG TABLET PO SCH (09:20)
[2016-11-13] MEDS: LEVOFLOXACIN 750 MG TABLET PO SCH (09:21)
[2016-11-13] MEDS: VALSARTAN 80 MG TABLET PO SCH (09:25)
[2016-11-13] MEDS: CEFEPIME 2 GM/D5W RTU 2 GM/50 ML RTUPB IV SCH (09:25)
--- NOTE | 2016-11-13 13:10 | PDOC PROGRESS REPORT ---
Subjective Progress Note for:: 11/13/16 Subjective:: Feeling better every day Physical Exam Vital Signs: Temp Pulse Resp BP Pulse Ox 98.4 F 102 H 20 102/54 L 100 11/13/16 08:55 11/13/16 08:55 11/13/16 08:55 11/13/16 08:55 11/13/16 08:55 Intake & Output 11/12/16 11/13/16 11/14/16 06:59 06:59 06:59 Intake Total 1029 1404 Output Total 2700 1100 Balance -1671 304 Weight 62.2 kg 63.3 kg General appearance: PRESENT: no acute distress, cooperative, disheveled, well- developed Head exam: PRESENT: atraumatic, normocephalic Eye exam: PRESENT: conjunctiva pale, EOMI Mouth exam: PRESENT: dry mucosa, neck supple, tongue midline Neck exam: ABSENT: carotid bruit, JVD, lymphadenopathy, thyromegaly Respiratory exam: PRESENT: decreased breath sounds, prolonged expiratory phas, rhonchi Cardiovascular exam: PRESENT: RRR, +S1, +S2 Pulses: PRESENT: normal radial pulses GI/Abdominal exam: PRESENT: normal bowel sounds, soft. ABSENT: distended, guarding, mass, organolmegaly, rebound, tenderness Rectal exam: PRESENT: deferred Musculoskeletal exam: PRESENT: normal inspection Neurological exam: PRESENT: awake Psychiatric exam: PRESENT: normal mood Skin exam: PRESENT: dry, warm Results Laboratory Results: 11/12/16 04:55 11/12/16 04:55 10/29/16 10/30/16 10/30/16 19:25 01:04 07:00 CK-MB (CK-2) 9.73 H 5.86 H 3.83 Troponin I < 0.012 < 0.012 < 0.012 Impressions: Chest X-Ray 11/07/16 06:00 IMPRESSION: Persistent opacity in the lateral right lung base with tenting of the right hemidiaphragm. This likely represents some chronic changes with superimposed infiltrate. Overall this appears similar to slightly improved in comparison prior study. Assessment & Plan - Diagnosis (1) Acute and chronic respiratory failure with hypercapnia Is this a current diagnosis for this admission?: Yes (2) COPD (chronic obstructive pulmonary disease) Qualifiers: COPD type: unspecified COPD Qualified Code(s): J44.9 - Chronic obstructive pulmonary disease, unspecified Is this a current diagnosis for this admission?: Yes (3) Pneumonia Qualifiers: Pneumonia type: due to unspecified organism Laterality: unspecified laterality Lung location: unspecified part of lung Qualified Code(s): J18.9 - Pneumonia, unspecified organism Is this a current diagnosis for this admission?: Yes
[2016-11-13 13:22] VITALS: BP 146/66
== END 2016-11-13 14:21 | disposition home or self-care (01) | DRG 207 ==
LOC: EDBD → ER 07:52 → UNDOADMIN 11:22 → EH 11:22 → 3W 15:14 → EH 18:48 → 3W 18:48 → ICU 10-31 10:59 → 3S 11-06 22:01
PROVIDERS: ADMIT Internal Medicine; ATTEND Internal Medicine
PROC: 5A1955Z Respiratory Ventilation, Greater than 96 Consecutive Hours (ICD-10-PCS; principal; 2016-10-29)
PROC: 0BH17EZ Insertion of Endotracheal Airway into Trachea, Via Natural or Artificial Opening (ICD-10-PCS; 2016-10-29)
DX: J96.01 Acute respiratory failure with hypoxia (principal); A41.9 Sepsis, unspecified organism; J18.9 Pneumonia, unspecified organism; J44.0 Chronic obstructive pulmonary disease with (acute) lower respiratory infection; J96.22 Acute and chronic respiratory failure with hypercapnia; I50.9 Heart failure, unspecified; D64.9 Anemia, unspecified; E78.5 Hyperlipidemia, unspecified; K44.9 Diaphragmatic hernia without obstruction or gangrene; F32.9 Major depressive disorder, single episode, unspecified; Z79.02 Long term (current) use of antithrombotics/antiplatelets; Z79.82 Long term (current) use of aspirin; Z79.899 Other long term (current) drug therapy; Z87.891 Personal history of nicotine dependence; Z86.14 Personal history of Methicillin resistant Staphylococcus aureus infection; Z85.118 Personal history of other malignant neoplasm of bronchus and lung; Z86.73 Personal history of transient ischemic attack (TIA), and cerebral infarction without residual deficits
CPT/HCPCS: 31500; 36415; 36430; 36600; 71010; 80048; 80053; 80061; 80076; 80307; 81001; 82140; 82150; 82272; 82553; 82803; 82947; 82962; 83036; 83605; 83690; 83735; 83880; 84100; 84132; 84133; 84300; 84439; 84443; 84484; 85025; 85027; 85610; 85730; 86850; 86900; 86901; 86920; 87040; 87070; 87086; 87205; 87493; 93005; 93010; 94002; 94003; 94640; 94660; 94667; 94668; 96365; 99291; J0330; J0692; J1642; J1650; J1956; J2250; J2704; J2930; J3475; J3480; J3490; J7030; J7050; J7614; J7620; P9016; S0028; S0183

== ENCOUNTER 2017-02-07 18:11 | Inpatient (IN) | payer MEDICARE, OTHER ==
--- NOTE | 2017-02-07 20:08 | EKG REPORT ---
SEVERITY:- BORDERLINE ECG - SINUS RHYTHM LOW VOLTAGE WITH RIGHT AXIS DEVIATION BORDERLINE R WAVE PROGRESSION, ANTERIOR LEADS : Confirmed by: Effie Thomas 07-Feb-2017 20:07:20
[2017-02-07 20:42] LABS: ABSOLUTE BASOPHILS # (AUTO) 0.1 10^3/uL (0.0-0.2); ABSOLUTE EOSINOPHILS # (AUTO) 0.2 10^3/uL (0.0-0.6); ABSOLUTE LYMPHOCYTES (AUTO) 1.9 10^3/uL (0.5-4.7); ABSOLUTE MONOCYTES (AUTO) 0.9 10^3/uL (0.1-1.4); ABSOLUTE NEUT (AUTO) 9.3 10^3/uL (1.7-8.2); BASOPHILS % (AUTO) 0.6 % (0-2); HEMOGLOBIN 10.7 g/dL (12.0-15.5); HGB HCT DIFFERENCE 1.1; LYMPHOCYTES % (AUTO) 15.6 % (13-45); MEAN CORPUSCULAR HEMOGLOBIN 31.8 pg (27.0-33.4); MEAN CORPUSCULAR HGB CONC 34.5 g/dL (32.0-36.0); MEAN CORPUSCULAR VOLUME 92 fl (80-97); MONOCYTES % (AUTO) 6.9 % (3-13); RED BLOOD COUNT 3.37 10^6/uL (3.72-5.28); RED CELL DISTRIBUTION WIDTH 14.2 % (11.5-14.0); SEGMENTED NEUTROPHILS % (AUTO) 74.9 % (42-78); WHITE BLOOD COUNT 12.4 10^3/uL (4.0-10.5)
[2017-02-07 20:59] LABS: ALANINE AMINOTRANSFERASE 20 U/L (9-52); ALBUMIN 3.9 g/dL (3.5-5.0); ALKALINE PHOSPHATASE 82 U/L (38-126); ANION GAP 9 (5-19); ASPARTATE AMINO TRANSFERASE 22 U/L (14-36); BILIRUBIN,DIRECT 0.3 mg/dL (0.0-0.4); BILIRUBIN,TOTAL 0.3 mg/dL (0.2-1.3); BLOOD UREA NITROGEN 16 mg/dL (7-20); CALCIUM 9.4 mg/dL (8.4-10.2); CARBON DIOXIDE 29 mmol/L (22-30); CHLORIDE 94 mmol/L (98-107); CREATINE KINASE 38 U/L (30-135); CREATININE RESULT 0.79 mg/dL (0.52-1.25); GLUCOSE 88 mg/dL (75-110); LIPASE 68.8 U/L (23-300); POTASSIUM 4.5 mmol/L (3.6-5.0); SODIUM 131.5 mmol/L (137-145); TOTAL PROTEIN 6.5 g/dL (6.3-8.2)
[2017-02-07 21:09] LABS: CREATINE KINASE MB 1.95 ng/mL (<4.55)
[2017-02-07 21:11] LABS: TROPONIN I < 0.012 ng/mL
--- NOTE | 2017-02-07 21:33 | RADIOLOGY REPORT (SQ) ---
EXAM DESCRIPTION: CHEST SINGLE VIEW COMPLETED DATE/TIME: 02/07/2017 9:23 pm REASON FOR STUDY: confusion/hx pneumonia/copd COMPARISON: 11/07/2016 EXAM PARAMETERS: NUMBER OF VIEWS: One view. TECHNIQUE: Single frontal radiographic view of the chest acquired. RADIATION DOSE: NA LIMITATIONS: None. FINDINGS: LUNGS AND PLEURA: Lung hampton are hyperexpanded. There is infiltrate in the right medial base. Some chronic changes laterally in the right base. Pjnycj-O-Cvst remains in place. MEDIASTINUM AND HILAR STRUCTURES: No masses. Contour normal. HEART AND VASCULAR STRUCTURES: Heart normal in size. Normal vasculature. BONES: No acute findings. HARDWARE: None in the chest. OTHER: No other significant finding. IMPRESSION: Airspace disease in the right medial base most likely pneumonia. TECHNICAL DOCUMENTATION: JOB ID: [id number]
[2017-02-07] MEDS ORDERED: LEVOFLOXACIN 750 MG TABLET PO ONE (21:40)
[2017-02-07] MEDS ORDERED: ALBUTEROL SULFATE 0.083% NEB 2.5 MG/3 ML AMPUL NEB ONE (21:40)
[2017-02-07] MEDS ORDERED: LEVOFLOXACIN 500 MG/D5W RTU 500 MG/100 ML RTUPB IV ONE (21:51)
[2017-02-07] MEDS ORDERED: LORAZEPAM 0.5 MG TABLET PO ONE (21:52)
[2017-02-07 22:35] LABS: VENOUS BLOOD BASE EXCESS 1.5 mmol/L; VENOUS BLOOD HCO3 27.6 mmol/L (20-32); VENOUS BLOOD PCO2 49.1 mmHg (35-63); VENOUS BLOOD PH 7.37 (7.30-7.42)
[2017-02-07] MEDS ORDERED: LEVOFLOXACIN 750 MG/D5W RTU 0 MG/0 ML RTUPB IV ONE (22:41)
--- NOTE | 2017-02-07 23:02 | ER Document Report ---
ED Neuro Symptoms/Deficit - General Chief Complaint: Altered Mental Status Stated Complaint: ALTERED MENTAL STATUS Time Seen by Provider: 02/07/17 19:23 Mode of Arrival: Medic Information source: Relative Notes: Patient is a 61-year-old female with COPD who presents to the ER today via EMS for altered mental status that started at 3 PM today. states that they had a lunch where she was completely coherent and then she describes some spots out of the carpet, he thinks that she may have overdone it, and she started to say things that did not make much sense afterwards. He states that she is talking about children that no longer live with them as if they still live with them, saying that her chases bulls when he has never, pulling bugs off of her that are not there. He denies that she has been sick recently with cough, fever, nausea, vomiting, diarrhea or complained of any pain anywhere. He states "this is exactly what happens whenever her CO2 is too high. " He also states that they do have a CPAP machine at home that is very fancy that she refuses to use and he does not know if this has something to do with her state at this time. He denies that she has hit her head or had any injury. TRAVEL OUTSIDE OF THE [place] IN LAST 30 DAYS: No - Related Data Allergies/Adverse Reactions: No Known Allergies Allergy (Unverified 10/29/16 08:28) Past Medical History - General Information source: Relative - Social History Smoking Status: Current Every Day Smoker Family History: Reviewed & Not Pertinent - Past Medical History Cardiac Medical History: Reports: Hx Congestive Heart Failure, Hx Hypercholesterolemia, Hx Hypertension Pulmonary Medical History: Reports: Hx COPD Renal/ Medical History: Reports: Hx Kidney Stones Malignancy Medical History: Reports: Hx Lung Cancer GI Medical History: Reports: Hx Hiatal Hernia Psychiatric Medical History: Reports: Hx Depression Past Surgical History: Reports: Hx Cardiac Catheterization, Other - lobectomy - Immunizations Hx Pneumococcal Vaccination: 10/25/16 Review of Systems - Review of Systems Constitutional: No symptoms reported EENT: No symptoms reported Cardiovascular: No symptoms reported Respiratory: See HPI Gastrointestinal: No symptoms reported Genitourinary: No symptoms reported Female Genitourinary: No symptoms reported Musculoskeletal: No symptoms reported Skin: No symptoms reported Hematologic/Lymphatic: No symptoms reported Neurological/Psychological: See HPI Physical Exam - Vital signs Vitals: Temp Pulse Resp BP Pulse Ox 98.0 F 108 H 16 118/74 96 02/07/17 18:30 02/07/17 18:30 02/07/17 18:30 02/07/17 18:30 02/07/17 18:30 - Notes Notes: PHYSICAL EXAMINATION: GENERAL: Confused, but in no acute distress. HEAD: Atraumatic, normocephalic. EYES: Pupils equal round and reactive to light, extraocular movements intact, sclera anicteric, conjunctiva are normal. ENT: ear canals without erythema or foreign body, TMs pearly kasper with good bony landmarks, nares patent, oropharynx clear without exudates. Moist mucous membranes. NECK: Normal range of motion, supple without lymphadenopathy LUNGS: On nasal cannula oxygen, mild expiratory wheezes, no rales or rhonchi appreciated. HEART: Regular rate and rhythm without murmurs ABDOMEN: Soft, no tenderness. No guarding, no rebound BACK: no vertebral tenderness, normal ROM GI/: no CVA tenderness EXTREMITIES: Normal range of motion, no pitting edema. No cyanosis. NEUROLOGICAL: Cranial nerves grossly intact. Normal sensory/motor exams. PSYCH: Normal mood, normal affect. SKIN: Warm, Dry, normal turgor, no rashes or lesions noted Course - Re-evaluation Re-evalutation: 02/08/17 00:22 Patient's white count is 12.4, her VBG is actually pretty good with a normal CO2 and oxygen, normal pH, patient is breathing well on her 3 L of oxygen at home, at 98% with a respiratory rate of under 20 while here in the emergency department. Patient does not look like she is working hard to breathe at all. is adamant that this is not her and that she keeps saying things that do not make sense to him. At this time I did call Dr. Goodwin who agrees to admit her at this time for altered mental status and pneumonia. She has been given IV Levaquin and a breathing treatment. She refuses CAT scan and has been agrees with this as he states "there is nothing wrong in her head, this is the same as all of her pneumonia before." We are also unable at this time to get a urine from her, does not want us to push for that. - Vital Signs Vital signs: Temp Pulse Resp BP Pulse Ox 98.0 F 108 H 20 150/50 H 99 02/07/17 18:30 02/07/17 18:30 02/07/17 22:54 02/07/17 22:54 02/07/17 22:54 - Laboratory Result Diagrams: 02/07/17 20:27 02/07/17 20:27 Laboratory results interpreted by me: 02/07/17 02/07/17 20:27 20:27 WBC 12.4 H RBC 3.37 L Hgb 10.7 L Hct 31.0 L RDW 14.2 H Absolute Neutrophils 9.3 H Sodium 131.5 L Chloride 94 L Discharge - Discharge Clinical Impression: Pneumonia Qualifiers: Pneumonia type: due to unspecified organism Laterality: right Lung location: unspecified part of lung Qualified Code(s): J18.9 - Pneumonia, unspecified organism Altered mental status Qualifiers: Altered mental status type: disorientation Qualified Code(s): R41.0 - Disorientation, unspecified Condition: Stable Disposition: ADMITTED INPATIENT Admitting Provider: P[facility] Admitted: Telemetry Referrals: BOONE GOODWIN MD [Primary Care Provider] - Follow up as needed
[2017-02-08] MEDS ORDERED: IPRATROPIUM/ALBUTEROL 0.5-2.5 MG/3 ML AMPUL NEB PRN (01:46)
[2017-02-08] MEDS ORDERED: CEFTRIAXONE 1 GM/D5W RTU 1 GM/50 ML RTUPB IV SCH (02:00)
[2017-02-08] MEDS ORDERED: AZITHROMYCIN INJ 500 MG VIAL IV PRN (02:00)
[2017-02-08] MEDS ORDERED: AZITHROMYCIN 500 MG in DEXTROSE 5%-WATER 250 ML IV SCH (02:00)
[2017-02-08 03:07] LABS: CREATINE KINASE MB 2.35 ng/mL (<4.55)
[2017-02-08 03:08] LABS: TROPONIN I < 0.012 ng/mL
[2017-02-08] MEDS ORDERED: ACETAMINOPHEN 325 MG TABLET PO PRN (03:32)
[2017-02-08 03:47] LABS: APPEARANCE,URINE CLEAR; BILIRUBIN,URINE NEGATIVE (NEGATIVE); GLUCOSE, URINE NEGATIVE (NEGATIVE); KETONES,URINE NEGATIVE (NEGATIVE); LEUKOCYTE ESTERASE,URINE NEGATIVE (NEGATIVE); NITRITE,URINE NEGATIVE (NEGATIVE); PROTEIN,URINE NEGATIVE (NEGATIVE); URINE SPECIFIC GRAVITY 1.006; UROBILINOGEN,URINE NEGATIVE mg/dL (<2.0)
[2017-02-08 04:04] LABS: URINE BARBITURATES SCREEN NEGATIVE; URINE METHADONE SCREEN NEGATIVE; URINE PHENCYCLIDINE SCREEN NEGATIVE
[2017-02-08 04:06] LABS: URINE OPIATES LOW UNCONFIRMED POSITIVE
[2017-02-08] MEDS: NORMAL SALINE 1000 ML 1,000 ML IV PRN ×2 (04:23→17:47)
[2017-02-08] MEDS ORDERED: (PENDING PHARMACY ID) (Zolpidem Tartrate [Ambien] 10 MG) PO PRN (09:52)
[2017-02-08] MEDS ORDERED: ALBUTEROL SULFATE HFA (90 MCG/PUFF) 8 GM MDI (1 MDI/ER DISP) IH PRN (09:52)
[2017-02-08] MEDS ORDERED: (PENDING PHARMACY ID) (Oxycodone Hcl/Acetaminophen [Oxycodone-Acetaminophen 10-325] 1 TAB) PO PRN (09:52)
[2017-02-08] MEDS ORDERED: ZOLPIDEM TARTRATE 5 MG TABLET PO PRN (09:56)
[2017-02-08] MEDS ORDERED: (PENDING PHARMACY ID) (Roflumilast [Daliresp 500 Mcg Tablet] 500 MCG) PO SCH (10:00)
[2017-02-08] MEDS ORDERED: (PENDING PHARMACY ID) (Ubidecarenone [Co Q-10] 200 MG) PO SCH (10:00)
[2017-02-08] MEDS: IRON POLYSACCHARIDES COMPLEX 150 MG CAPSULE PO SCH (10:56)
[2017-02-08] MEDS: FAMOTIDINE 20 MG TABLET PO SCH ×2 (10:56→17:43)
[2017-02-08] MEDS: LORAZEPAM 0.5 MG TABLET PO SCH ×3 (10:57→17:42)
[2017-02-08] MEDS: DOCUSATE SODIUM 100 MG CAPSULE PO SCH ×2 (10:57→17:39)
[2017-02-08] MEDS: VALSARTAN 80 MG TABLET PO SCH (10:57)
[2017-02-08] MEDS: PROCHLORPERAZINE MALEATE 10 MG TABLET PO SCH ×3 (10:58→17:43)
[2017-02-08] MEDS: ASPIRIN 81 MG TABLET, ENT COATED PO SCH (10:59)
[2017-02-08] MEDS: ROFLUMILAST 500 MCG TABLET PO SCH (11:00)
[2017-02-08] MEDS: BUDESONIDE/FORMOTEROL 160-4.5 MCG 60 PUFF/6 GM MDI IH SCH ×2 (11:02→21:08)
[2017-02-08] MEDS: TIOTROPIUM BROMIDE DPI 5 CAP/KIT (18 MCG/CAP) IH SCH (11:02)
[2017-02-08] MEDS: ENOXAPARIN SODIUM INJ 30 MG/0.3 ML DISP.SYRIN SUBCUT SCH (11:04)
[2017-02-08] MEDS: OXYCODONE-ACETAMINOPHEN 5-325 MG TABLET PO PRN ×3 (11:09→23:54)
[2017-02-08] MEDS: OXYCODONE HCL IR 5 MG TABLET PO PRN ×2 (11:10→17:44)
[2017-02-08] MEDS ORDERED: MULTIVITAMIN TABLET PO ONE (11:15)
[2017-02-08] MEDS ORDERED: OXYCODONE HCL SR 40 MG TABLET PO ONE (11:30)
[2017-02-08] MEDS ORDERED: PHENOL/SODIUM PHENOLATE 100 SPRAY/177 ML BOTTLE PO PRN (13:40)
[2017-02-08] MEDS: BUPROPION HCL 75 MG TABLET PO SCH (17:42)
[2017-02-08] MEDS: OXYCODONE HCL SR 40 MG TABLET PO SCH (17:44)
[2017-02-08] MEDS ORDERED: CLOPIDOGREL BISULFATE 75 MG TABLET PO SCH (18:00)
[2017-02-08] MEDS ORDERED: (PENDING PHARMACY ID) (Bupropion Hcl [Wellbutrin Xl 150 Mg 24hr Tablet] 150 MG) PO SCH (18:00)
[2017-02-08] MEDS ORDERED: (PENDING PHARMACY ID) (Quetiapine Fumarate [Seroquel Xr] 200 MG) PO SCH (18:00)
--- NOTE | 2017-02-08 19:42 | PDOC H&P ---
History of Present Illness Admission Date/PCP: 02/08/17 01:47 BOONE GOODWIN MD History of Present Illness: DENNIS DEGROOT is a 61 year old female, she has a history of chronic obstructive pulmonary disease, she came to the emergency room last night for evaluation of altered mental status. She was accompanied by , he gave most of the history to the emergency room providers. He stated that patient was confused she was talking about children that no longer live with them as if they still lived with them. She also stated that her chases bulls when he has never done that, she was pulling bugs or for her 's when there are no bugs. She called the office last week requesting for antibiotic because she was experiencing respiratory symptoms with cough, shortness of breath. In the emergency room she was evaluated a chest x-ray was done chest x- ray showed hyperexpanded lung ham[place] there is infiltrate in the right middle base on the chronic changes. The venous blood gas that was done to the emergency room was normal. There was mild leukocytosis, the urinalysis was negative. I spoke to patient and I asked if she experiences episode of confusion frequently lately and if she is experiencing memory loss,she confirmed that she has been experiencing memory loss but she does get confused occasionally. So the confusion is probably delirium secondary to infection other than symptoms of progressive dementia. She wants to go home today, she is stable enough to be discharged,she will be treated outpatient. She has a noninvasive positive pressure device at home, trilogy that she uses to support breathing. Past Medical History Cardiac Medical History: Reports: Hypertension Pulmonary Medical History: Reports: Chronic Obstructive Pulmonary Disease (COPD) Malignancy Medical History: Reports: Lung Cancer GI Medical History: Reports: Hiatal Hernia Psychiatric Medical History: Reports: Depression Past Surgical History Past Surgical History: Reports: Cardiac Catheterization, Other - lobectomy Social History Smoking Status: Current Every Day Smoker Last Time Smoked: 02/08/2017 Frequency of Alcohol Use: None Hx Recreational Drug Use: No Drugs: None Hx Prescription Drug Abuse: No - Advance Directive Resuscitation Status: Full Code Family History Family History: Reviewed & Not Pertinent Parental Family History Reviewed: Yes Children Family History Reviewed: Yes Sibling(s) Family History Reviewed.: Yes Medication/Allergy Home Medications: Alendronate Sodium [Fosamax 70 mg Tablet] 70 mg PO SCHMIDT@1000 10/29/16 Aspirin [Adult Low Dose Aspirin EC] 81 mg PO DAILY 10/29/16 Atorvastatin Calcium [Lipitor 40 mg Tablet] 40 mg PO QPM 10/29/16 Bupropion HCl [Wellbutrin Xl 150 mg 24hr Tablet] 150 mg PO QPM 10/29/16 Clopidogrel Bisulfate [Plavix 75 mg Tablet] 75 mg PO QPM 10/29/16 Iron Polysaccharide Complex [Ferrex 150] 150 mg PO DAILY 10/29/16 Multivit-Min/Iron/Folic/Lutein [Centrum Silver Women Tablet] 1 tab PO DAILY 10/10 Oxycodone HCl [Oxycodone HCl ER] 40 mg PO Q8 10/29/16 Oxycodone HCl/Acetaminophen [Oxycodone-Acetaminophen 10-325] 1 tab PO Q6HP PRN 10/29/16 Prochlorperazine Maleate [Compazine 10 mg Tablet] 10 mg PO TID 10/29/16 Quetiapine Fumarate [Seroquel Xr] 200 mg PO QPM 10/29/16 Roflumilast [Daliresp 500 mcg Tablet] 500 mcg PO DAILY 10/29/16 Tiotropium [place] [Spiriva Handihaler 18 mcg/dose (30 Dose)] 18 mcg IH DAILY Ubidecarenone [Co Q-10] 200 mg PO DAILY 10/29/16 Valsartan [Diovan 80 mg Tablet] 80 mg PO DAILY 10/29/16 Docusate Sodium [Colace 100 mg Capsule] 100 mg PO BID 11/04/16 Albuterol Sulfate [Ventolin HFA MDI 18 GM] 90 mcg IH Q4HP PRN 02/08/17 Budesonide/Formoterol Fumarate [Symbicort 160-4.5 Mcg Inhaler] 2 puff IH BID Lorazepam [Ativan 0.5 mg Tablet] 0.5 mg PO TID 02/08/17 Zolpidem Tartrate [Ambien] 10 mg PO HSP PRN 02/08/17 Allergies/Adverse Reactions: No Known Allergies Allergy (Unverified 10/29/16 08:28) Review of Systems Constitutional: PRESENT: fever(s) Eyes: ABSENT: visual disturbances Ears: ABSENT: hearing changes Cardiovascular: ABSENT: chest pain, dyspnea on exertion, edema, orthropnea, palpitations Respiratory: PRESENT: cough Gastrointestinal: ABSENT: abdominal pain, constipation, diarrhea, hematemesis, hematochezia, nausea, vomiting Genitourinary: ABSENT: dysuria, hematuria Musculoskeletal: ABSENT: joint swelling Integumentary: ABSENT: rash, wounds Neurological: ABSENT: abnormal gait, abnormal speech, confusion, dizziness, focal weakness, syncope Psychiatric: ABSENT: anxiety, depression, homidical ideation, suicidal ideation Endocrine: ABSENT: cold intolerance, heat intolerance, menstrual abnormalities, polydipsia, polyuria Hematologic/Lymphatic: ABSENT: easy bleeding, easy bruising, lymphadenopathy Physical Exam Vital Signs: Temp Pulse Resp BP Pulse Ox 98.5 F 83 13 174/55 H 100 02/08/17 15:43 02/08/17 15:43 02/08/17 15:43 02/08/17 15:43 02/08/17 15:43 Pulse Oximeter Continuous Start: 02/08/17 01: 47 Freq: RTQ4 Status: Active Document 02/08/17 12:00 [facility] (Rec: 02/08/17 12:18 J [email or web address]) Pulse Oximetry Assessment Oxygen Saturation (92-100) 100 Oxygen Flow Rate (L/min) 2 Oxygen Delivery Method Nasal Cannula Equipment Usage Equipment in Use Continuous SpO2 Machine # 4 Intake & Output 02/07/17 02/08/17 02/09/17 06:59 06:59 06:59 Intake Total 370 1420 Output Total 350 Balance 20 1420 Weight 63.8 kg General appearance: PRESENT: no acute distress, well-developed, well-nourished Head exam: PRESENT: atraumatic, normocephalic Eye exam: PRESENT: conjunctiva pink, EOMI, PERRLA Ear exam: PRESENT: normal external ear exam Mouth exam: PRESENT: moist, tongue midline Neck exam: PRESENT: full ROM Respiratory exam: PRESENT: clear to auscultation melanie Cardiovascular exam: PRESENT: RRR, +S1, +S2 Pulses: PRESENT: normal dorsalis pedis pul, +2 pedal pulses bilateral Vascular exam: PRESENT: normal capillary refill GI/Abdominal exam: PRESENT: normal bowel sounds, soft Rectal exam: PRESENT: deferred Neurological exam: PRESENT: alert, awake, oriented to person, oriented to place , oriented to time, oriented to situation, CN II-XII grossly intact. ABSENT: motor sensory deficit Psychiatric exam: PRESENT: appropriate affect, normal mood Skin exam: PRESENT: dry, intact, warm Results Laboratory Results: 02/08/17 03:15 Urine Color STRAW Urine Appearance CLEAR Urine pH 7.0 Ur Specific [place] 1.006 Urine Protein NEGATIVE Urine Glucose (UA) NEGATIVE Urine Ketones NEGATIVE Urine Blood NEGATIVE Urine Nitrite NEGATIVE Ur Leukocyte Esterase NEGATIVE Urine RBC (Auto) 0 02/08/17 02/08/17 02:20 02:20 Creatine Kinase 63 CK-MB (CK-2) 2.35 Troponin I < 0.012 NT-Pro-B Natriuret Pep 247 Impressions: Chest X-Ray 02/07/17 19:28 IMPRESSION: Airspace disease in the right medial base most likely pneumonia. Assessment & Plan - Diagnosis (1) Right lower lobe pneumonia Qualifiers: Pneumonia type: due to unspecified organism Qualified Code(s): J18.1 - Lobar pneumonia, unspecified organism Is this a current diagnosis for this admission?: Yes Plan: Patient on IV antibiotic (2) Metabolic encephalopathy Is this a current diagnosis for this admission?: Yes
--- NOTE | 2017-02-08 19:45 | PDOC DISCHARGE SUMMARY ---
General - Admit/Disc Date/PCP Admission Date/Primary Care Provider: 02/08/17 01:47 BOONE GOODWIN MD Discharge Date: 02/08/17 - Discharge Diagnosis (1) Right lower lobe pneumonia Is this a current diagnosis for this admission?: Yes (2) Metabolic encephalopathy Is this a current diagnosis for this admission?: Yes - Additional Information Resuscitation Status: Full Code Discharge Diet: As Tolerated Discharge Activity: Activity As Tolerated Home Medications: Alendronate Sodium [Fosamax 70 mg Tablet] 70 mg PO SCHMIDT@1000 10/29/16 Aspirin [Adult Low Dose Aspirin EC] 81 mg PO DAILY 10/29/16 Atorvastatin Calcium [Lipitor 40 mg Tablet] 40 mg PO QPM 10/29/16 Bupropion HCl [Wellbutrin Xl 150 mg 24hr Tablet] 150 mg PO QPM 10/29/16 Clopidogrel Bisulfate [Plavix 75 mg Tablet] 75 mg PO QPM 10/29/16 Iron Polysaccharide Complex [Ferrex 150] 150 mg PO DAILY 10/29/16 Multivit-Min/Iron/Folic/Lutein [Centrum Silver Women Tablet] 1 tab PO DAILY 10/10 Oxycodone HCl [Oxycodone HCl ER] 40 mg PO Q8 10/29/16 Oxycodone HCl/Acetaminophen [Oxycodone-Acetaminophen 10-325] 1 tab PO Q6HP PRN 10/29/16 Prochlorperazine Maleate [Compazine 10 mg Tablet] 10 mg PO TID 10/29/16 Quetiapine Fumarate [Seroquel Xr] 200 mg PO QPM 10/29/16 Roflumilast [Daliresp 500 mcg Tablet] 500 mcg PO DAILY 10/29/16 Tiotropium [place] [Spiriva Handihaler 18 mcg/dose (30 Dose)] 18 mcg IH DAILY Ubidecarenone [Co Q-10] 200 mg PO DAILY 10/29/16 Valsartan [Diovan 80 mg Tablet] 80 mg PO DAILY 10/29/16 Docusate Sodium [Colace 100 mg Capsule] 100 mg PO BID 11/04/16 Albuterol Sulfate [Ventolin HFA MDI 18 GM] 90 mcg IH Q4HP PRN 02/08/17 Budesonide/Formoterol Fumarate [Symbicort 160-4.5 Mcg Inhaler] 2 puff IH BID Levofloxacin [Levaquin 750 mg Tablet] 750 mg PO DAILY #10 tab 02/08/17 Lorazepam [Ativan 0.5 mg Tablet] 0.5 mg PO TID 02/08/17 Zolpidem Tartrate [Ambien] 10 mg PO HSP PRN 02/08/17 History of Present Illness History of Present Illness: DENNIS DEGROOT is a 61 year old female, she has a history of chronic obstructive pulmonary disease, she came to the emergency room last night for evaluation of altered mental status. She was accompanied by , he gave most of the history to the emergency room providers. He stated that patient was confused she was talking about children that no longer live with them as if they still lived with them. She also stated that her chases bulls when he has never done that, she was pulling bugs or for her 's when there are no bugs. She called the office last week requesting for antibiotic because she was experiencing respiratory symptoms with cough, shortness of breath. In the emergency room she was evaluated a chest x-ray was done chest x- ray showed hyperexpanded lung hampton there is infiltrate in the right middle base on the chronic changes. The venous blood gas that was done to the emergency room was normal. There was mild leukocytosis, the urinalysis was negative. I spoke to patient and I asked if she experiences episode of confusion frequently lately and if she is experiencing memory loss,she confirmed that she has been experiencing memory loss but she does get confused occasionally. So the confusion is probably delirium secondary to infection other than symptoms of progressive dementia. She wants to go home today, she is stable enough to be discharged,she will be treated outpatient. She has a noninvasive positive pressure device at home, trilogy that she uses to support breathing. Hospital Course Hospital Course: Patient was admitted today, she wants to go home she is not in any distress, she will be treated with p.o. Levaquin. She was treated with IV azithromycin Physical Exam Vital Signs: Temp Pulse Resp BP Pulse Ox 98.5 F 83 13 174/55 H 100 02/08/17 15:43 02/08/17 15:43 02/08/17 15:43 02/08/17 15:43 02/08/17 15:43 Pulse Oximeter Continuous Start: 02/08/17 01: 47 Freq: RTQ4 Status: Active Document 02/08/17 12:00 [facility]ERIN (Rec: 02/08/17 12:18 J [email or web address]) Pulse Oximetry Assessment Oxygen Saturation (92-100) 100 Oxygen Flow Rate (L/min) 2 Oxygen Delivery Method Nasal Cannula Equipment Usage Equipment in Use Continuous SpO2 Machine # 4 Intake & Output 02/07/17 02/08/17 02/09/17 06:59 06:59 06:59 Intake Total 370 1420 Output Total 350 Balance 20 1420 Weight 63.8 kg General appearance: PRESENT: no acute distress, well-developed, well-nourished Head exam: PRESENT: atraumatic, normocephalic Eye exam: PRESENT: conjunctiva pink, EOMI, PERRLA Ear exam: PRESENT: normal external ear exam Mouth exam: PRESENT: moist, tongue midline Neck exam: PRESENT: full ROM Respiratory exam: PRESENT: clear to auscultation melanie Cardiovascular exam: PRESENT: RRR, +S1, +S2 Pulses: PRESENT: normal dorsalis pedis pul, +2 pedal pulses bilateral Vascular exam: PRESENT: normal capillary refill GI/Abdominal exam: PRESENT: normal bowel sounds, soft Rectal exam: PRESENT: deferred Neurological exam: PRESENT: alert, awake, oriented to person, oriented to place , oriented to time, oriented to situation, CN II-XII grossly intact Psychiatric exam: PRESENT: appropriate affect, normal mood Skin exam: PRESENT: dry, intact, warm Results Laboratory Results: 02/08/17 03:15 Urine Color STRAW Urine Appearance CLEAR Urine pH 7.0 Ur Specific [place] 1.006 Urine Protein NEGATIVE Urine Glucose (UA) NEGATIVE Urine Ketones NEGATIVE Urine Blood NEGATIVE Urine Nitrite NEGATIVE Ur Leukocyte Esterase NEGATIVE Urine RBC (Auto) 0 02/08/17 02/08/17 02:20 02:20 Creatine Kinase 63 CK-MB (CK-2) 2.35 Troponin I < 0.012 NT-Pro-B Natriuret Pep 247 Impressions: Chest X-Ray 02/07/17 19:28 IMPRESSION: Airspace disease in the right medial base most likely pneumonia.
[2017-02-08] MEDS ORDERED: ATORVASTATIN CALCIUM 40 MG TABLET PO SCH (22:00)
[2017-02-08] MEDS ORDERED: QUETIAPINE FUMARATE 200 MG PO SCH (22:00)
[2017-02-09] MEDS: OXYCODONE HCL SR 40 MG TABLET PO SCH ×2 (01:19→09:47)
[2017-02-09 05:11] LABS: ABSOLUTE BASOPHILS # (AUTO) 0.1 10^3/uL (0.0-0.2); ABSOLUTE EOSINOPHILS # (AUTO) 0.3 10^3/uL (0.0-0.6); ABSOLUTE MONOCYTES (AUTO) 0.6 10^3/uL (0.1-1.4); ABSOLUTE NEUT (AUTO) 5.6 10^3/uL (1.7-8.2); BASOPHILS % (AUTO) 0.9 % (0-2); EOSINOPHILS % (AUTO) 3.2 % (0-6); HEMATOCRIT 29.3 % (36.0-47.0); HEMOGLOBIN 10.3 g/dL (12.0-15.5); HGB HCT DIFFERENCE 1.6; LYMPHOCYTES % (AUTO) 23.6 % (13-45); MEAN CORPUSCULAR HEMOGLOBIN 31.8 pg (27.0-33.4); MEAN CORPUSCULAR HGB CONC 35.1 g/dL (32.0-36.0); MEAN CORPUSCULAR VOLUME 91 fl (80-97); MONOCYTES % (AUTO) 6.8 % (3-13); RED BLOOD COUNT 3.24 10^6/uL (3.72-5.28); RED CELL DISTRIBUTION WIDTH 14.4 % (11.5-14.0); SEGMENTED NEUTROPHILS % (AUTO) 65.5 % (42-78); WHITE BLOOD COUNT 8.5 10^3/uL (4.0-10.5)
[2017-02-09] MEDS: OXYCODONE HCL IR 5 MG TABLET PO PRN (05:13)
[2017-02-09 05:30] LABS: ALANINE AMINOTRANSFERASE 17 U/L (9-52); ALBUMIN 3.2 g/dL (3.5-5.0); ALKALINE PHOSPHATASE 59 U/L (38-126); ANION GAP 8 (5-19); ASPARTATE AMINO TRANSFERASE 17 U/L (14-36); BILIRUBIN,DIRECT 0.3 mg/dL (0.0-0.4); BILIRUBIN,TOTAL 0.3 mg/dL (0.2-1.3); BLOOD UREA NITROGEN 11 mg/dL (7-20); CALCIUM 9.3 mg/dL (8.4-10.2); CARBON DIOXIDE 27 mmol/L (22-30); CHLORIDE 104 mmol/L (98-107); CREATININE RESULT 0.68 mg/dL (0.52-1.25); GLUCOSE 94 mg/dL (75-110); SODIUM 139.2 mmol/L (137-145); TOTAL PROTEIN 5.7 g/dL (6.3-8.2)
[2017-02-09] MEDS: OXYCODONE-ACETAMINOPHEN 5-325 MG TABLET PO PRN (06:24)
[2017-02-09 08:09] VITALS: BP 148/61
[2017-02-09] MEDS: IRON POLYSACCHARIDES COMPLEX 150 MG CAPSULE PO SCH (09:46)
[2017-02-09] MEDS: PROCHLORPERAZINE MALEATE 10 MG TABLET PO SCH (09:46)
[2017-02-09] MEDS: BUPROPION HCL 75 MG TABLET PO SCH (09:46)
[2017-02-09] MEDS: VALSARTAN 80 MG TABLET PO SCH (09:47)
[2017-02-09] MEDS: ASPIRIN 81 MG TABLET, ENT COATED PO SCH (09:47)
[2017-02-09] MEDS: LORAZEPAM 0.5 MG TABLET PO SCH (09:47)
[2017-02-09] MEDS: DOCUSATE SODIUM 100 MG CAPSULE PO SCH (09:47)
[2017-02-09] MEDS: FAMOTIDINE 20 MG TABLET PO SCH (09:48)
[2017-02-09] MEDS: BUDESONIDE/FORMOTEROL 160-4.5 MCG 60 PUFF/6 GM MDI IH SCH (09:48)
[2017-02-09] MEDS: TIOTROPIUM BROMIDE DPI 5 CAP/KIT (18 MCG/CAP) IH SCH (09:49)
[2017-02-09] MEDS: ROFLUMILAST 500 MCG TABLET PO SCH (09:49)
[2017-02-09] MEDS: ENOXAPARIN SODIUM INJ 30 MG/0.3 ML DISP.SYRIN SUBCUT SCH (09:49)
[2017-02-09] MEDS ORDERED: MULTIVITAMIN TABLET PO SCH (10:00)
[2017-02-10] MEDS ORDERED: (PENDING PHARMACY ID) (Alendronate Sodium [Fosamax 70 Mg Tablet] 70 MG) PO SCH (10:00)
== END 2017-02-09 09:54 | disposition home or self-care (01) | DRG 193 ==
LOC: ER 18:11 → EH 02-08 00:44 → UNDOADMIN 02-08 00:44 → EH 02-08 01:47 → 3S 02-08 02:11 → EH 02-08 02:11
PROVIDERS: ADMIT Internal Medicine; ATTEND Internal Medicine
DX: J18.9 Pneumonia, unspecified organism (principal); G93.41 Metabolic encephalopathy; I11.0 Hypertensive heart disease with heart failure; I50.9 Heart failure, unspecified; J44.9 Chronic obstructive pulmonary disease, unspecified; F32.9 Major depressive disorder, single episode, unspecified; F17.200 Nicotine dependence, unspecified, uncomplicated; Z99.81 Dependence on supplemental oxygen; Z79.899 Other long term (current) drug therapy; Z79.51 Long term (current) use of inhaled steroids
CPT/HCPCS: 36415; 71010; 80053; 80307; 81001; 82550; 82553; 82803; 83036; 83605; 83690; 83880; 84484; 85025; 87040; 87086; 93005; 93010; 94640; 94762; 96365; 99285; J1650; J1956; J3490; J7030; S0183